=== PATIENT | male | born 1945 | race Caucasian/White ===

== ENCOUNTER 2022-11-22 16:55 | Inpatient (IN) ==
--- NOTE | 2022-11-22 17:30 | XRay Report ---
SINGLE VIEW CHEST CLINICAL HISTORY: Dyspnea FINDINGS: An AP, portable, upright chest radiograph is obtained. No prior studies are available for c omparison at the time of dictation. The examination is degraded by portable technique and patient rot ation. The heart is enlarged noting atherosclerotic calcification of the thoracic aorta. There is pu lmonary vascular congestion. Emphysematous change is suspected. There are moderate left and small ri ght pleural effusions with dependent consolidation. Patchy airspace consolidation is also seen in the left midlung. No pneumothorax is seen. The skeletal structures are osteopenic. There are chronic/hea led right-sided rib fractures. 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 IMPRESSION: 1. Cardiomegaly with evidence of congestive failure. 2. Suspect emphysema. 3. Small right and moderate left pleural effusions with dependent consolidation. 4. More focal airspace consolidation is seen in the left midlung. This could represent asymmetric pul monary edema or pneumonia. Radiographic follow-up to resolution is recommended to exclude the possibi lity of underlying mass lesion. ACT 112: Negative or not required by law. Electronically signed by: William Ledesma M.D. 11/22/2022 5:29 PM
[2022-11-22 17:59] LABS: Basophils # (auto) 0.03 K/uL (0.00-0.20); Basophils % (auto) 0.3 %; Eosinophils # (auto) 0.07 K/uL (0.00-0.50); Eosinophils % (auto) 0.8 %; Hematocrit (blood only) 31.7 % (42.0-52.0); Hemoglobin 10.7 g/dl (14.0-18.0); Immature Granulocytes # (auto) 0.02 K/uL (0.01-0.20); Immature Granulocytes % (auto) 0.2 %; Lymphocytes # (auto) 0.62 K/uL (1.20-3.40); Lymphocytes % (auto) 7.2 %; Mean Corpuscular Hemoglobin 32.4 pg (25.0-34.0); Mean Corpuscular Hgb Conc 33.8 g/dL (32.0-36.0); Mean Corpuscular Volume 96.1 fL (80.0-100.0); Monocytes # (auto) 0.69 K/uL (0.11-0.59); Neutrophils # (auto) 7.18 K/uL (1.40-6.50); Neutrophils % (auto) 83.5 %; Platelet Count 355 K/uL (130-400); RDW Coefficient of Variation 13.5 % (11.5-14.5); RDW Standard Deviation 48.2 fL (36.4-46.3); White Blood Count 8.61 K/ul (4.8-10.8)
[2022-11-22 18:24] LABS: Alanine Aminotransferase 34 U/L (7-52); Albumin Globulin Ratio 1.1 (0.9-2); Albumin Level 3.5 gm/dl (3.4-5.0); Alkaline Phosphatase 153 U/L (34-104); Anion Gap 5 (3-11); Aspartate Aminotransferase 41 U/L (13-39); BUN Creatinine Ratio 22.2 (10-20); Bilirubin,Total 0.5 mg/dl (0.2-1.0); Blood Urea Nitrogen 14 mg/dl (6-23); Calcium 9.7 mg/dl (8.6-10.3); Carbon Dioxide 33 mmol/L (21-32); Chloride 90 mmol/L (98-107); Creatinine Clr Calc Pharmacy 89.9 ml/min; Est GFR (African American) 109.4 ml/min; Est GFR (Non-African American) 94.4 ml/min; Globulin 3.1 gm/dl (2.5-4.0); Glucose 106 mg/dl (70-99(Fasting)); Magnesium 1.6 mg/dl (1.7-2.4); Potassium 4.6 mmol/L (3.5-5.1); Sodium 128 mmol/L (136-145); Total Protein 6.6 gm/dl (6.0-8.3)
[2022-11-22 18:29] LABS: Troponin I High Sensitivity 25.8 pg/ml (0-20)
--- NOTE | 2022-11-22 18:41 | Emergency Department Note ---
Impression & Plan SOB (shortness of breath), Cough, Elevated troponin, Acute hyponatremia, Multifocal pneumonia ED Provider Note INFORMANT: Patient and family ED PROVIDER(S): Edi Torres MD CHIEF COMPLAINT: Shortness of breath and cough PLAN: Disposition: Admitted Condition: Good Outpatient prescription management: none Referral: None MEDICAL DECISION MAKING: Patient presented because of cough and shortness of breath. ECG as an outpatient was concerning per primary. A work-up was initiated. His CBC was unremarkable. Chemistry panel cardiac testing did reveal an elevated BNP as well as troponin. Bio fire testing was negative. The patient had multifocal pneumonia noted on CT as well as chest x-ray. No pulmonary embolus. Loculated effusion noted as well as calcified myocardium. Patient was treated with blood cultures as well as vancomycin and cefepime. He was gently hydrated. He was also found to have hyponatremia on his chemistry panel. Further management in the hospital will be necessary. Consultation was made with the [facility] service. Case discussed and diagnostics were reviewed. Patient was evaluated in the ER and admitted for further management Discussed with residential care facility manager After review of the information above and other included data, I feel the patient requires admission. Triage Nursing notes reviewed and agree them. Vital Signs: reviewed and remarkable for borderline tachycardia Prior /Outside records reviewed: none Differential diagnosis: Reactive airway disease, pneumonia, pneumothorax, COPD, CHF, infections, cardiac ischemia, pulmonary embolism, musculoskeletal, gastrointestinal, as well as other pathologies. Diagnostics, as interpreted by me: ECG: Twelve-lead ECG reveals a normal sinus rhythm at [address] elevation but there is mild inferolateral ST depression.. Septal Q wave. Cardiac Monitoring: Cardiac monitoring ordered by me: The patient was placed on continuous cardiac monitoring and observed. It revealed a normal sinus rhythm at 100 beats per minute without ectopy or evidence of dysrhythmia. Medical decision rules: none Imaging studies: Chest x-ray and CT scan as above. Multifocal pneumonia. Pleural effusions. HPI: The patient is a 77year old male who presents to the Emergency Room with complaints of shortness of breath and cough. This started several weeks ago and is fluctuating. The patient also notes the following associated symptoms, fatigue and poor appetite. The patient has been prescribed doxycycline for relieving factors. Current pain is rated as 0/10. Patient notes no improvement with the doxycycline. Several weeks ago he did have a prednisone prescription and noted some improvement with that. Patient also notes a 40 pound weight loss. Pt denies LOC, headache, fevers, chills, diaphoresis, visual changes, neck pain, chest pain, nausea, vomiting, abdominal pain, back pain, melena, hematochezia, urinary symptoms, numbness, lymphadenopathy, rash, or other complaints. PAST MEDICAL HISTORY: See Below, high cholesterol PAST SURGICAL HISTORY: See Below, SOCIAL HISTORY: See Below, HOME MEDICATIONS: See Below ALLERGIES: See Below VITALS: See Below PHYSICAL EXAMINATION: GENERAL: Awake, alert, mildly cachectic-appearing, in no distress HENT: Normocephalic, atraumatic. Oropharynx unremarkable. EYES: Normal conjunctiva. Sclera non-icteric. NECK: Inspection normal. Non-tender. Supple. No nuchal rigidity. FROM. No masses. RESPIRATORY: Scattered rhonchi bilaterally. No wheezes. No rales. Normal respiratory effort. CARDIAC: Normal rate. Normal rhythm. No murmurs. No rubs. Extremities warm and well perfused. Pulses equal. No JVD. GI: Soft, non-distended. No tenderness to palpation. No rebound or guarding. No masses. MUSCULOSKELETAL: Atraumatic. Chest examination reveals no tenderness. The back is symmetrical on inspection without obvious abnormality. There is no CVA tender ness to palpation. No joint edema. LOWER EXTREMITIES: Calves are equal size bilaterally and non-tender. No edema. No discoloration. NEURO: Normal sensorium. No sensory or motor deficits noted. SKIN: No rash or jaundice noted. Past Med/Surg History Social History Smoking Status: Former smoker Tobacco Type: Cigarettes Preferred Language: Dutch Feels Safe at Home: Yes Allergies Allergies Allergy/AdvReac Type Severity Reaction Status Date / Time No Known Allergies Allergy Verified 11/22/22 18:33 Home Meds Home Medications Medication Instructions Recorded Confirmed albuterol sulfate 90 mcg/actuation 2 puff inhalation Q4H PRN 11/22/22 11/22/22 aerosol inhaler COUGH/SHORTNESS OF BREATH/WHEEZING cholecalciferol (vitamin D3) 25 25 mcg PO DAILY 11/22/22 11/22/22 mcg (1,000 unit) capsule (Vitamin D3) clobetasol 0.05 % topical cream 1 applic topical BID PRN Itching 11/22/22 11/22/22 doxycycline hyclate 100 mg capsule 100 mg PO BID 11/22/22 11/22/22 fluticasone propionate 50 1 spray intranasal DAILY 11/22/22 11/22/22 mcg/actuation nasal spray,suspension furosemide 20 mg tablet (Lasix) 20 mg PO QAM 11/22/22 11/22/22 guaifenesin 600 mg tablet, 600 mg PO Q12H 11/22/22 11/22/22 extended release 12 hr ipratropium 0.5 mg-albuterol 3 mg 3 ml inhalation Q4H PRN Wheezing 11/22/22 11/22/22 (2.5 mg base)/3 mL nebulization soln latanoprost 0.005 % eye drops 1 drp OPB PM 11/22/22 11/22/22 levobunolol 0.5 % eye drops 1 drp OPB BID 11/22/22 11/22/22 [id number] 1 tab PO DAILY 11/22/22 11/22/22 tablet (Multivitamin 50 Plus tablet) ondansetron HCl 4 mg tablet 4 mg PO Q8H PRN NAUSEA/VOMITING 11/22/22 11/22/22 psyllium husk 0.4 gram capsule 0.4 g PO DAILY 11/22/22 11/22/22 (Fiber (psyllium husk)) sertraline 50 mg tablet 50 mg PO DAILY 11/22/22 11/22/22 sildenafil 100 mg tablet 100 mg PO DAILY PRN Sexual Activity 11/22/22 11/22/22 simvastatin 40 mg tablet 40 mg PO HS 11/22/22 11/22/22 triamcinolone acetonide 0.1 % 1 applic topical DAILY PRN Itching 11/22/22 11/22/22 topical cream Results & Data (ED) Vital Signs Vital Signs - 24 hr 11/22/22 16:59 11/22/22 17:14 11/22/22 18:29 Temperature 36.6 C Temperature Source Temporal Artery Scan Pulse Rate 92 H 92 H Pulse Rate [Right Finger] 96 H Pulse Rhythm [Right Finger] Regular Pulse Strength [Right Finger] Normal Respiratory Rate 22 18 Respiratory Effort / Characteristics Non-Labored Non-Labored Respiratory Depth Normal Normal Respiratory Pattern Regular Blood Pressure 115/66 Blood Pressure [Right Arm] 124/72 Blood Pressure Mean 82 Blood Pressure Mean [Right Arm] 89 Blood Pressure Position [Right Arm] Sitting Pulse Oximetry 94 92 Oxygen Delivery Method Room Air Room Air Sepsis Recent Fever Within 48 Hours No Sepsis New/Unexplained Change in Mental Status N/A Sepsis Action Taken by Nursing No Action Required 11/22/22 19:52 11/22/22 21:25 11/22/22 21:02 Temperature Temperature Source Pulse Rate 98 H Pulse Rate [Right Finger] 97 H 105 H Pulse Rhythm [Right Finger] Regular Regular Pulse Strength [Right Finger] Normal Normal Respiratory Rate 18 18 Respiratory Effort / Characteristics Non-Labored Spontaneous Non-Labored Spontaneous Respiratory Depth Normal Normal Respiratory Pattern Regular Regular Blood Pressure Blood Pressure [Right Arm] 127/76 109/67 Blood Pressure Mean Blood Pressure Mean [Right Arm] 93 81 Blood Pressure Position [Right Arm] Pulse Oximetry 92 92 Oxygen Delivery Method Room Air Room Air Sepsis Recent Fever Within 48 Hours Sepsis New/Unexplained Change in Mental Status Sepsis Action Taken by Nursing Laboratory Data 11/22/22 17:34 11/22/22 17:34 Lab Results 11/22/22 11/22/22 11/22/22 Range/Units 17:34 17:34 17:34 WBC 8.61 (4.8-10.8) K/ul RBC 3.30 L (4.70-6.10) M/uL Hgb 10.7 L (14.0-18.0) g/dl Hct 31.7 L (42.0-52.0) % MCV 96.1 (80.0-100.0) fL MCH 32.4 (25.0-34.0) pg MCHC 33.8 (32.0-36.0) g/dL RDW Std Deviation 48.2 H (36.4-46.3) fL RDW Coeff of Lizeth 13.5 (11.5-14.5) % Plt Count 355 (130-400) K/uL MPV 10.0 (9.4-12.4) fL Immature Gran % (Auto) 0.2 % Neut % (Auto) 83.5 % Lymph % (Auto) 7.2 % Yell % (Auto) 8.0 % Eos % (Auto) 0.8 % Baso % (Auto) 0.3 % Neut # (Auto) 7.18 H (1.40-6.50) K/uL Lymph # (Auto) 0.62 L (1.20-3.40) K/uL Yell # (Auto) 0.69 H (0.11-0.59) K/uL Eos # (Auto) 0.07 (0.00-0.50) K/uL Baso # (Auto) 0.03 (0.00-0.20) K/uL Immature Gran # (Auto) 0.02 (0.01-0.20) K/uL PT 12.4 H (9.0-12.0) Seconds INR 1.1 (0.9-1.1) Sodium 128 L (136-145) mmol/L Potassium 4.6 (3.5-5.1) mmol/L Chloride 90 L (98-107) mmol/L Carbon Dioxide 33 H (21-32) mmol/L Anion Gap 5 (3-11) BUN 14 (6-23) mg/dl Creatinine 0.63 (0.6-1.4) mg/dl Est Cr Clr Drug Dosing 89.9 ml/min Est GFR ( Amer) 109.4 ml/min Est GFR (Non-Af Amer) 94.4 ml/min BUN/Creatinine Ratio 22.2 H (10-20) Glucose 106 H (70-99(Fasting)) mg/dl Calcium 9.7 (8.6-10.3) mg/dl Magnesium 1.6 L (1.7-2.4) mg/dl Total Bilirubin 0.5 (0.2-1.0) mg/dl AST 41 H (13-39) U/L ALT 34 (7-52) U/L Alkaline Phosphatase 153 H (34-104) U/L Troponin I High Sens 25.8 H (0-20) pg/ml B-Natriuretic Peptide (0-100) pg/ml Total Protein 6.6 (6.0-8.3) gm/dl Albumin 3.5 (3.4-5.0) gm/dl Globulin 3.1 (2.5-4.0) gm/dl Albumin/Globulin Ratio 1.1 (0.9-2) Urine Color Urine Appearance (Clear) Urine pH (4.5-7.5) Ur Specific [place] (1.000-1.030) Urine Protein (Negative) Urine Glucose (UA) (Negative) Urine Ketones (Negative) Urine Blood (Negative) Urine Nitrite (Negative) Urine Bilirubin (Negative) Urine Urobilinogen (Negative) Ur Leukocyte Esterase (Negative) Urine WBC (Auto) (0-5) /hpf Urine RBC (Auto) (0-4) /hpf U Hyaline Cast (Auto) (0-5) /lpf U Epithel Cells (Auto) (0-5) /lpf Urine Bacteria (Auto) (Negative) Adenovirus (PCR) (NotDetected) B. pertussis DNA (PCR) (NotDetected) B.parapertussis DNA PCR (NotDetected) C. pneumoniae DNA (PCR) (NotDetected) Coronavirus OC43 (PCR) (NotDetected) Coronavirus HKU1 (PCR) (NotDetected) Coronavirus 229E (PCR) (NotDetected) SARS-CoV-2 (PCR) (NotDetected) Coronavirus NL63 (PCR) (NotDetected) Human Metapneumovir PCR (NotDetected) Influenza Type A (PCR) (NotDetected) Influenza Type B (PCR) (NotDetected) M. pneumoniae (PCR) (NotDetected) Parainfluenza 1 (PCR) (NotDetected) Parainfluenza 2 (PCR) (NotDetected) Parainfluenza 3 (PCR) (NotDetected) Parainfluenza 4 (PCR) (NotDetected) RSV (PCR) (NotDetected) Entero/Rhino (PCR) (NotDetected) 11/22/22 11/22/22 11/22/22 Range/Units 17:34 19:41 20:20 WBC (4.8-10.8) K/ul RBC (4.70-6.10) M/uL Hgb (14.0-18.0) g/dl Hct (42.0-52.0) % MCV (80.0-100.0) fL MCH (25.0-34.0) pg MCHC (32.0-36.0) g/dL RDW Std Deviation (36.4-46.3) fL RDW Coeff of Lizeth (11.5-14.5) % Plt Count (130-400) K/uL MPV (9.4-12.4) fL Immature Gran % (Auto) % Neut % (Auto) % Lymph % (Auto) % Yell % (Auto) % Eos % (Auto) % Baso % (Auto) % Neut # (Auto) (1.40-6.50) K/uL Lymph # (Auto) (1.20-3.40) K/uL Yell # (Auto) (0.11-0.59) K/uL Eos # (Auto) (0.00-0.50) K/uL Baso # (Auto) (0.00-0.20) K/uL Immature Gran # (Auto) (0.01-0.20) K/uL PT (9.0-12.0) Seconds INR (0.9-1.1) Sodium (136-145) mmol/L Potassium (3.5-5.1) mmol/L Chloride (98-107) mmol/L Carbon Dioxide (21-32) mmol/L Anion Gap (3-11) BUN (6-23) mg/dl Creatinine (0.6-1.4) mg/dl Est Cr Clr Drug Dosing ml/min Est GFR ( Amer) ml/min Est GFR (Non-Af Amer) ml/min BUN/Creatinine Ratio (10-20) Glucose (70-99(Fasting)) mg/dl Calcium (8.6-10.3) mg/dl Magnesium (1.7-2.4) mg/dl Total Bilirubin (0.2-1.0) mg/dl AST (13-39) U/L ALT (7-52) U/L Alkaline Phosphatase (34-104) U/L Troponin I High Sens 22.5 H (0-20) pg/ml B-Natriuretic Peptide 1239 H (0-100) pg/ml Total Protein (6.0-8.3) gm/dl Albumin (3.4-5.0) gm/dl Globulin (2.5-4.0) gm/dl Albumin/Globulin Ratio (0.9-2) Urine Color Yellow Urine Appearance Clear (Clear) Urine pH 6.5 (4.5-7.5) Ur Specific [place] > 1.045 H (1.000-1.030) Urine Protein Trace H (Negative) Urine Glucose (UA) Negative (Negative) Urine Ketones Negative (Negative) Urine Blood Negative (Negative) Urine Nitrite Negative (Negative) Urine Bilirubin Negative (Negative) Urine Urobilinogen Negative (Negative) Ur Leukocyte Esterase Negative (Negative) Urine WBC (Auto) 1-5 (0-5) /hpf Urine RBC (Auto) 0-4 (0-4) /hpf U Hyaline Cast (Auto) 0 (0-5) /lpf U Epithel Cells (Auto) 0-5 (0-5) /lpf Urine Bacteria (Auto) Negative (Negative) Adenovirus (PCR) (NotDetected) B. pertussis DNA (PCR) (NotDetected) B.parapertussis DNA PCR (NotDetected) C. pneumoniae DNA (PCR) (NotDetected) Coronavirus OC43 (PCR) (NotDetected) Coronavirus HKU1 (PCR) (NotDetected) Coronavirus 229E (PCR) (NotDetected) SARS-CoV-2 (PCR) (NotDetected) Coronavirus NL63 (PCR) (NotDetected) Human Metapneumovir PCR (NotDetected) Influenza Type A (PCR) (NotDetected) Influenza Type B (PCR) (NotDetected) M. pneumoniae (PCR) (NotDetected) Parainfluenza 1 (PCR) (NotDetected) Parainfluenza 2 (PCR) (NotDetected) Parainfluenza 3 (PCR) (NotDetected) Parainfluenza 4 (PCR) (NotDetected) RSV (PCR) (NotDetected) Entero/Rhino (PCR) (NotDetected) 11/22/22 11/22/22 Range/Units 21:38 Unknown WBC (4.8-10.8) K/ul RBC (4.70-6.10) M/uL Hgb (14.0-18.0) g/dl Hct (42.0-52.0) % MCV (80.0-100.0) fL MCH (25.0-34.0) pg MCHC (32.0-36.0) g/dL RDW Std Deviation (36.4-46.3) fL RDW Coeff of Lizeth (11.5-14.5) % Plt Count (130-400) K/uL MPV (9.4-12.4) fL Immature Gran % (Auto) % Neut % (Auto) % Lymph % (Auto) % Yell % (Auto) % Eos % (Auto) % Baso % (Auto) % Neut # (Auto) (1.40-6.50) K/uL Lymph # (Auto) (1.20-3.40) K/uL Yell # (Auto) (0.11-0.59) K/uL Eos # (Auto) (0.00-0.50) K/uL Baso # (Auto) (0.00-0.20) K/uL Immature Gran # (Auto) (0.01-0.20) K/uL PT (9.0-12.0) Seconds INR (0.9-1.1) Sodium (136-145) mmol/L Potassium (3.5-5.1) mmol/L Chloride (98-107) mmol/L Carbon Dioxide (21-32) mmol/L Anion Gap (3-11) BUN (6-23) mg/dl Creatinine (0.6-1.4) mg/dl Est Cr Clr Drug Dosing ml/min Est GFR ( Amer) ml/min Est GFR (Non-Af Amer) ml/min BUN/Creatinine Ratio (10-20) Glucose (70-99(Fasting)) mg/dl Calcium (8.6-10.3) mg/dl Magnesium (1.7-2.4) mg/dl Total Bilirubin (0.2-1.0) mg/dl AST (13-39) U/L ALT (7-52) U/L Alkaline Phosphatase (34-104) U/L Troponin I High Sens 23.9 H (0-20) pg/ml B-Natriuretic Peptide (0-100) pg/ml Total Protein (6.0-8.3) gm/dl Albumin (3.4-5.0) gm/dl Globulin (2.5-4.0) gm/dl Albumin/Globulin Ratio (0.9-2) Urine Color Urine Appearance (Clear) Urine pH (4.5-7.5) Ur Specific [place] (1.000-1.030) Urine Protein (Negative) Urine Glucose (UA) (Negative) Urine Ketones (Negative) Urine Blood (Negative) Urine Nitrite (Negative) Urine Bilirubin (Negative) Urine Urobilinogen (Negative) Ur Leukocyte Esterase (Negative) Urine WBC (Auto) (0-5) /hpf Urine RBC (Auto) (0-4) /hpf U Hyaline Cast (Auto) (0-5) /lpf U Epithel Cells (Auto) (0-5) /lpf Urine Bacteria (Auto) (Negative) Adenovirus (PCR) Not Detected (NotDetected) B. pertussis DNA (PCR) Not Detected (NotDetected) B.parapertussis DNA PCR Not Detected (NotDetected) C. pneumoniae DNA (PCR) Not Detected (NotDetected) Coronavirus OC43 (PCR) Not Detected (NotDetected) Coronavirus HKU1 (PCR) Not Detected (NotDetected) Coronavirus 229E (PCR) Not Detected (NotDetected) SARS-CoV-2 (PCR) Not Detected (NotDetected) Coronavirus NL63 (PCR) Not Detected (NotDetected) Human Metapneumovir PCR Not Detected (NotDetected) Influenza Type A (PCR) Not Detected (NotDetected) Influenza Type B (PCR) Not Detected (NotDetected) M. pneumoniae (PCR) Not Detected (NotDetected) Parainfluenza 1 (PCR) Not Detected (NotDetected) Parainfluenza 2 (PCR) Not Detected (NotDetected) Parainfluenza 3 (PCR) Not Detected (NotDetected) Parainfluenza 4 (PCR) Not Detected (NotDetected) RSV (PCR) Not Detected (NotDetected) Entero/Rhino (PCR) Not Detected (NotDetected) Administered Medications Sodium Chloride (Nss 1000ml) 1,000 mls @ 80 mls/hr IV .[id number] SATURNINO Stop: 12/22/22 18:44 Last Admin: 11/22/22 19:47 Dose: 80 mls/hr Documented By: HOWARD Discontinued Medications Cefepime HCl (Maxipime) 2,000 mg in 20 mls @ 5 mls/min IV NOW STA; Protocol Stop: 11/22/22 20:01 Last Admin: 11/22/22 20:32 Dose: 5 mls/min Documented By: HOWARD Vancomycin HCl 1,250 mg/ (Sodium Chloride) 525 mls @ 200 mls/hr IV NOW ONE Stop: 11/22/22 22:35 Last Admin: 11/22/22 20:35 Dose: 200 mls/hr Documented By: HWOARD Ioversol (Ioversol 350 Mg 125ml Prefilled Syringe) 117 ml IV ONCE ONE Stop: 11/22/22 18:57 Last Admin: 11/22/22 18:57 Dose: 117 ml Documented By: SALLY Imaging Data Radiologist's Impression: Chest X-Ray 11/22/22 17:11 SINGLE VIEW CHEST CLINICAL HISTORY: Dyspnea FINDINGS: An AP, portable, upright chest radiograph is obtained. No prior studies are available for comparison at the time of dictation. The examination is degraded by portable technique and patient rotation. The heart is enlarged noting atherosclerotic calcification of the thoracic aorta. There is pulmonary vascular congestion. Emphysematous change is suspected. There are moderate left and small right pleural effusions with dependent consolidation. Patchy airspace consolidation is also seen in the left midlung. No pneumothorax is seen. The skeletal structures are osteopenic. There are chronic/healed right-sided rib fractures. 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 IMPRESSION: 1. Cardiomegaly with evidence of congestive failure. 2. Suspect emphysema. 3. Small right and moderate left pleural effusions with dependent consolidation. 4. More focal airspace consolidation is seen in the left midlung. This could represent asymmetric pulmonary edema or pneumonia. Radiographic follow-up to resolution is recommended to exclude the possibility of underlying mass lesion. ACT 112: Negative or not required by law. Electronically signed by: William Ledesma M.D. 11/22/2022 5:29 PM Abdomen/Pelvis CT 11/22/22 17:21 Exam(s): CT ABDOMEN + PELVIS With Contrast IV Amt: 117ml optiray 350 EXAM: CT Abdomen and Pelvis With Intravenous Contrast CLINICAL HISTORY: Reason for exam: 40 wt loss, SOB, effusions, decreased appetite. TECHNIQUE: Axial computed tomography images of the abdomen and pelvis with intravenous contrast. CTDI is 37.01 mGy and DLP is 1030.98 mGy-cm. Automated exposure control was utilized for the study. A dose lowering technique was utilized adhering to the principles of ALARA. CONTRAST: Patient received 117ml optiray 350 of IV contrast COMPARISON: No relevant prior studies available. FINDINGS: Chest findings are reported separately. Liver, gallbladder, spleen, pancreas, and adrenal glands are unremarkable. Kidneys enhance symmetrically, without hydronephrosis or significant perinephric stranding. There is extensive aortoiliac and mesenteric arterial atherosclerosis. There is no aortic aneurysm. 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 There is no adenopathy. There is no free air or significant ascites. Trace perisplenic ascites is noted. There is no bowel obstruction or inflammatory change. Appendix is not visualized with certainty. Urinary bladder and prostate are unremarkable. There are age-related degenerative changes of the spine and hips. There are no acute osseous findings. IMPRESSION: 1. 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 Bowel shows no direct evidence of ischemic change. 2. Otherwise, no acute or significant intra-abdominal findings. 3. Please refer to CT chest of the same date, reported separately. Electronically signed by: Jero Leong M.D. 11/22/22 19:20 PM Chest CTA 11/22/22 17:21 Exam(s): CTA CHEST IV Amt: 117ml optiray 350 EXAM: CT Angiography Chest With Intravenous Contrast CLINICAL HISTORY: Reason for exam: SOB, pleural effusion, ? mass, PE. TECHNIQUE: Axial computed tomographic angiography images of the chest with intravenous contrast. CTDI is 37.01 mGy and DLP is 1030.98 mGy-cm. Automated exposure control was utilized for the study. A dose lowering technique was utilized adhering to the principles of ALARA. MIP reconstructed images were created and reviewed. COMPARISON: No relevant prior studies available. FINDINGS: Thyroid gland is unremarkable. There are mildly enlarged multicompartment mediastinal lymph nodes. No hilar or axillary lymphadenopathy is visualized. Thoracic aorta is calcified but normal in caliber. There is no dissection. There is adequate pulmonary artery opacification. Main pulmonary artery is normal in caliber. There is no evidence of acute pulmonary embolism. There is a moderate loculated left pleural effusion. Extensive round atelectasis is present in the lingula and right lower lobe. There is a small loculated right pleural effusion with round atelectasis in the right lower lobe. Additionally, there are patchy consolidative opacities throughout the lungs, located in the bilateral upper lobes, bilateral lower lobes, and right middle lobe. Some consolidations are subpleural in location, while others are peribronchovascular. There is a background of centrilobular emphysema. There is no pneumothorax. Heart size is normal. Coronary arteries are calcified. There is no significant RV strain. Extensive myocardial calcifications are present within the left ventricle. There is no acute fracture or dislocation. IMPRESSION: 1. No evidence of acute pulmonary embolism. 2. Widespread and patchy bilateral subpleural and peribronchovascular consolidative opacities concerning for multifocal pneumonia. Imaging follow-up after treatment completion recommended to exclude underlying malignancy. 3. Loculated pleural effusions, moderate on the left and mild on the right. Multifocal regions of round atelectasis bilaterally. 4. Centrilobular emphysema. 5. Mild mediastinal adenopathy, possibly reactive. 6. Extensive calcifications throughout the left ventricular myocardium, nonspecific, considerations include post-infarction changes and myocarditis. Clinical correlation is recommended. Consider further characterization with echocardiography. Electronically signed by: Jero Leong M.D. 11/22/22 19:15 PM Discharge Plan Visit Data Chief Complaint: Cardiac Assessment Stated Complaint: REF BY ED Provider: Edi Torres Discharge Problem: SOB (shortness of breath), Cough, Elevated troponin, Acute hyponatremia, Multifocal pneumonia Forms Stand Alone Forms: [facility] Prescriptions Prescriptions: No Action levobunolol [Betagan] 0.5 % Drops 1 drp OPB BID latanoprost 0.005 % Drops 1 drp OPB PM doxycycline hyclate 100 mg Capsule 100 mg PO BID Rx Instructions: STARTED 11/18/22 FOR 7 DAYS. ipratropium-albuterol [DuoNeb] 0.5 mg-3 mg(2.5 mg base)/3 mL Solution For Nebulization 3 ml INHALATION Q4H PRN (Reason: Wheezing) ondansetron HCl [Zofran] 4 mg Tablet 4 mg PO Q8H PRN (Reason: NAUSEA/VOMITING) clobetasol 0.05 % Cream 1 applic TOPICAL BID PRN (Reason: Itching) sildenafil 100 mg Tablet 100 mg PO DAILY PRN (Reason: Sexual Activity) Rx Instructions: administer 30 minutes to 4 hours before activity triamcinolone acetonide 0.1 % Cream 1 applic TOPICAL DAILY PRN (Reason: Itching) simvastatin 40 mg Tablet 40 mg PO HS furosemide [Lasix] 20 mg Tablet 20 mg PO QAM albuterol sulfate 90 mcg/actuation Hfa Aerosol Inhaler 2 puff INHALATION Q4H PRN (Reason: COUGH/SHORTNESS OF BREATH/WHEEZING) fluticasone propionate [Flonase] 50 mcg/actuation [place],Suspension 1 spray INTRANASAL DAILY Rx Instructions: administer into each nostril sertraline 50 mg Tablet 50 mg PO DAILY cholecalciferol (vitamin D3) [Vitamin D3] 25 mcg (1,000 unit) Capsule 25 mcg PO DAILY Multivitamin 50 Plus Tablet 1 tab PO DAILY guaifenesin 600 mg Tablet Extended Release 12hr 600 mg PO Q12H psyllium husk [Fiber (psyllium husk)] 0.4 gram Capsule 0.4 g PO DAILY Referrals Referrals: Emiliana Bernal MD [Primary Care Provider] -
[2022-11-22 18:42] LABS: INR 1.1 (0.9-1.1); Prothrombin Time 12.4 Seconds (9.0-12.0)
[2022-11-22] MEDS ORDERED: SODIUM CHLORIDE 0.9% 1,000 ML IV SCH (18:45)
[2022-11-22] MEDS ORDERED: IOVERSOL 350 MG 125mL Prefilled Syringe IV ONE (18:56)
--- NOTE | 2022-11-22 19:17 | CT Scan Report ---
Exam(s): CTA CHEST IV Amt: 117ml optiray 350 EXAM: CT Angiography Chest With Intravenous Contrast CLINICAL HISTORY: Reason for exam: SOB, pleural effusion, ? mass, PE. TECHNIQUE: Axial computed tomographic angiography images of the chest with intravenous contrast. CTDI is 37.01 mGy and DLP is 1030.98 mGy-cm. Automated exposure control was utilized for the study. A dose lowering technique was utilized adhering to the principles of ALARA. MIP reconstructed images were created and reviewed. COMPARISON: No relevant prior studies available. FINDINGS: Thyroid gland is unremarkable. There are mildly enlarged multicompartment mediastinal lymph nodes. No hilar or axillary lymphadenopathy is visualized. Thoracic aorta is calcified but normal in caliber. There is no dissection. There is adequate pulmonary artery opacification. Main pulmonary artery is normal in caliber. There is no evidence of acute pulmonary embolism. There is a moderate loculated left pleural effusion. Extensive round atelectasis is present in the lingula and right lower lobe. There is a small loculated right pleural effusion with round atelectasis in the right lower lobe. Additionally, there are patchy consolidative opacities throughout the lungs, located in the bilateral upper lobes, bilateral lower lobes, and right middle lobe. Some consolidations are subpleural in location, while others are peribronchovascular. There is a background of centrilobular emphysema. There is no pneumothorax. Heart size is normal. Coronary arteries are calcified. There is no significant RV strain. Extensive myocardial calcifications are present within the left ventricle. There is no acute fracture or dislocation. IMPRESSION: 1. No evidence of acute pulmonary embolism. 2. Widespread and patchy bilateral subpleural and peribronchovascular consolidative opacities concerning for multifocal pneumonia. Imaging follow-up after treatment completion recommended to exclude underlying malignancy. 3. Loculated pleural effusions, moderate on the left and mild on the right. Multifocal regions of round atelectasis bilaterally. 4. Centrilobular emphysema. 5. Mild mediastinal adenopathy, possibly reactive. 6. Extensive calcifications throughout the left ventricular myocardium, nonspecific, considerations include post-infarction changes and myocarditis. Clinical correlation is recommended. Consider further characterization with echocardiography. Electronically signed by: Jero Leong M.D. 11/22/22 19:15 PM
--- NOTE | 2022-11-22 19:21 | CT Scan Report ---
Exam(s): CT ABDOMEN + PELVIS With Contrast IV Amt: 117ml optiray 350 EXAM: CT Abdomen and Pelvis With Intravenous Contrast CLINICAL HISTORY: Reason for exam: 40 wt loss, SOB, effusions, decreased appetite. TECHNIQUE: Axial computed tomography images of the abdomen and pelvis with intravenous contrast. CTDI is 37.01 mGy and DLP is 1030.98 mGy-cm. Automated exposure control was utilized for the study. A dose lowering technique was utilized adhering to the principles of ALARA. CONTRAST: Patient received 117ml optiray 350 of IV contrast COMPARISON: No relevant prior studies available. FINDINGS: Chest findings are reported separately. Liver, gallbladder, spleen, pancreas, and adrenal glands are unremarkable. Kidneys enhance symmetrically, without hydronephrosis or significant perinephric stranding. There is extensive aortoiliac and mesenteric arterial atherosclerosis. There is no aortic aneurysm. 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 There is no adenopathy. There is no free air or significant ascites. Trace perisplenic ascites is noted. There is no bowel obstruction or inflammatory change. Appendix is not visualized with certainty. Urinary bladder and prostate are unremarkable. There are age-related degenerative changes of the spine and hips. There are no acute osseous findings. IMPRESSION: 1. 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 Bowel shows no direct evidence of ischemic change. 2. Otherwise, no acute or significant intra-abdominal findings. 3. Please refer to CT chest of the same date, reported separately. Electronically signed by: Jero Leong M.D. 11/22/22 19:20 PM
[2022-11-22] MEDS ORDERED: VANCOMYCIN HCL 1,250 MG in SODIUM CHLORIDE 0.9% 500 ML IV ONE (19:58)
[2022-11-22] MEDS ORDERED: CEFEPIME 2,000 MG/20 ML VIAL IV STA (19:58)
[2022-11-22] MEDS ORDERED: VANCOMYCIN CONSULT ACTIVE PRN (19:58)
[2022-11-22 20:55] LABS: Appearance Urine Clear (Clear); Bacteria Urine Automated Negative (Negative); Bilirubin Urine Negative (Negative); Blood Urine Negative (Negative); Cast Urine Automated 0 /lpf (0-5); Color Urine Yellow; Epithelial Cell Urine Auto 0-5 /lpf (0-5); Glucose Urine UA Negative (Negative); Ketones Urine Negative (Negative); Leukocyte Esterase Urine Negative (Negative); Nitrite Urine Negative (Negative); Protein Urine Trace (Negative); RBC Urine Automated 0-4 /hpf (0-4); Specific Gravity Urine > 1.045 (1.000-1.030); Urobilinogen Urine Negative (Negative); pH Urine 6.5 (4.5-7.5)
--- NOTE | 2022-11-22 21:17 | History & Physical Report ---
Date of Service November 22, 2022 Assessment & Plan (1) Multifocal pneumonia: Plan: 77-year-old male with past medical significant for hyperlipidemia, COPD, pleural effusion, dyspnea on exertion, recurrent pneumonia, chronic diastolic CHF, primary open-angle glaucoma both eyes, presents with fevers going on for last week with shortness of breath on exertion, weakness, fatigue and cough bringing a slight of whitish phlegm .Was prescribed doxycycline as outpatient took for last 3 days but not improving so came to the ER. Multifocal pneumonia Dyspnea on exertion Says fourth pneumonia in the last 6 months History of pleural effusions. Etiology unclear as per pulmonary plan for bronchoscopy if pleural effusions persist Had 3-day course of doxycycline but not improving ER start cefepime and and Vanco. We will continue with Zosyn and Vanco Pulmonary consult in a.m. for further recommendations History of COPD Continue home inhalers and nebs as needed We will place on nebs ATC for now Weakness Fatigue Weight loss Recurrent pneumonias Need further work-up Dyspnea on exertion Mild elevation of troponin Elevated BNP We will follow serial cardiac enzymes and echocardiogram Consult cardiology in a.m. for further recommendations Chronic diastolic CHF Continue his home Lasix for now Hyperlipidemia on statin DVT prophylaxis Lovenox Disposition med/telemetry Full code History of Present Illness Chief Complaint: Fevers, weakness and shortness of breath Primary Care Provider: Emiliana Bernal MD 77-year-old male with past medical significant for hyperlipidemia, COPD, pleural effusion, dyspnea on exertion, recurrent pneumonia, chronic diastolic CHF, primary open-angle glaucoma both eyes, presents with fevers going on for last week with shortness of breath on exertion, weakness, fatigueand cough bringing a slight of whitish phlegm.Was prescribed doxycycline as outpatient took for las t 3 days but not improving so came to the ER. Patient states this is fourth episode in last 6 months. Lost about 40 pounds weight in last 1 year. Had pleural effusions and followed with [facility], etiology unclear as per pulmonary and plan for bronchoscopy if pleural effusions persist. Patient states today had temperature 100.7 degrees. Appetite is down. Denies any headache, no neck pain, no chest pain, no back pain, no abdominal pain and no pain in limbs. Could not ambulate far because of fatigue, weakness and shortness of breath. Denies any blurred visions. Has some runny nose. No sore throat. No difficulty swallowing. No painful swallowing. No nausea. Normal bowel and bladder movements. Currently resting comfortably and hemodynamically stable Past medical as mentioned above Past surgical history colonoscopy, tonsillectomy, vasectomy Social history quit smoking 2012. Smoked 1.5 packs a day for 40 years. Alcohol 1 beer a week. No drug use Family history Sister has cancer Sister has diabetes Allergies Allergy/AdvReac Type Severity Reaction Status Date / Time No Known Allergies Allergy Verified 11/22/22 18:33 Home Medications Medication Instructions Recorded Confirmed Type albuterol sulfate 90 mcg/actuation 2 puff inhalation Q4H PRN 11/22/22 11/22/22 History aerosol inhaler COUGH/SHORTNESS OF BREATH/WHEEZING cholecalciferol (vitamin D3) 25 25 mcg PO DAILY 11/22/22 11/22/22 History mcg (1,000 unit) capsule (Vitamin D3) clobetasol 0.05 % topical cream 1 applic topical BID PRN Itching 11/22/22 11/22/22 History doxycycline hyclate 100 mg capsule 100 mg PO BID 11/22/22 11/22/22 History fluticasone propionate 50 1 spray intranasal DAILY 11/22/22 11/22/22 History mcg/actuation nasal spray,suspension furosemide 20 mg tablet (Lasix) 20 mg PO QAM 11/22/22 11/22/22 History guaifenesin 600 mg tablet, 600 mg PO Q12H 11/22/22 11/22/22 History extended release 12 hr ipratropium 0.5 mg-albuterol 3 mg 3 ml inhalation Q4H PRN Wheezing 11/22/22 11/22/22 History (2.5 mg base)/3 mL nebulization soln latanoprost 0.005 % eye drops 1 drp OPB PM 11/22/22 11/22/22 History levobunolol 0.5 % eye drops 1 drp OPB BID 11/22/22 11/22/22 History xkyovzawuwwf-trlbxvia-apzfis 1 tab PO DAILY 11/22/22 11/22/22 History tablet (Multivitamin 50 Plus tablet) ondansetron HCl 4 mg tablet 4 mg PO Q8H PRN NAUSEA/VOMITING 11/22/22 11/22/22 History psyllium husk 0.4 gram capsule 0.4 g PO DAILY 11/22/22 11/22/22 History (Fiber (psyllium husk)) sertraline 50 mg tablet 50 mg PO DAILY 11/22/22 11/22/22 History sildenafil 100 mg tablet 100 mg PO DAILY PRN Sexual Activity 11/22/22 11/22/22 History simvastatin 40 mg tablet 40 mg PO HS 11/22/22 11/22/22 History triamcinolone acetonide 0.1 % 1 applic topical DAILY PRN Itching 11/22/22 History topical cream Past Med/Surg History Social History Smoking Status: Former smoker Tobacco Type: Cigarettes Hx Alcohol Use: Yes Alcohol type: beer Hx Substance Use: No Preferred Language: Gambian Communication Ability: Effective Spring Maker Required: No Current Living Situation: Spouse Feels Safe at Home: Yes Assistive Devices: Denture - Upper, Denture - Lower, Glasses and Hearing Aid - Bilateral Review of Systems Review of Systems: All systems reviewed & are unremarkable except as noted in HPI & below Physical Exam Physical Exam: General- Not in distress Head- atraumatic Eyes- PERRL ENT- oropharynx clear Neck- supple, no JVD, no adenopathy, carotids +2/2, no bruits appreciated Lungs- clear to auscultation no wheezing, mild bibasilar crackles present Heart- regular rate and rhythm; no murmur, no gallop. Abdomen- normal bowel sounds, soft, nontender, no distension. Extremities- no pretibial edema, no erythema Neuro- alert, oriented x 3; PERRL, no facial palsy; no dysarthria;non focal. Skin- warm & dry Results & Data Results & Data Vital Signs (Past 12 Hours) Vital Signs Temp Pulse Pulse Resp BP BP Pulse Ox 11/22/22 19:52 97 H 18 127/76 92 11/22/22 18:29 96 H 18 124/72 92 11/22/22 17:14 92 H 11/22/22 16:59 36.6 C 92 H 22 115/66 94 O2 Del Method 11/22/22 19:52 Room Air 11/22/22 18:29 Room Air 11/22/22 17:14 11/22/22 16:59 Room Air Diagnostic Findings Laboratory Results WBC 8.61 K/ul (4.8-10.8) 11/22/22 17:34 RBC 3.30 M/uL (4.70-6.10) L 11/22/22 17:34 Hgb 10.7 g/dl (14.0-18.0) L 11/22/22 17:34 Hct 31.7 % (42.0-52.0) L 11/22/22 17:34 MCV 96.1 fL (80.0-100.0) 11/22/22 17:34 MCH 32.4 pg (25.0-34.0) 11/22/22 17:34 MCHC 33.8 g/dL (32.0-36.0) 11/22/22 17:34 RDW Std Deviation 48.2 fL (36.4-46.3) H 11/22/22 17:34 RDW Coeff of Lizeth 13.5 % (11.5-14.5) 11/22/22 17:34 Plt Count 355 K/uL (130-400) 11/22/22 17:34 MPV 10.0 fL (9.4-12.4) 11/22/22 17:34 Immature Gran % (Auto) 0.2 % 11/22/22 17:34 Neut % (Auto) 83.5 % 11/22/22 17:34 Lymph % (Auto) 7.2 % 11/22/22 17:34 Esmeralda % (Auto) 8.0 % 11/22/22 17:34 Eos % (Auto) 0.8 % 11/22/22 17:34 Baso % (Auto) 0.3 % 11/22/22 17:34 Neut # (Auto) 7.18 K/uL (1.40-6.50) H 11/22/22 17:34 Lymph # (Auto) 0.62 K/uL (1.20-3.40) L 11/22/22 17:34 Esmeralda # (Auto) 0.69 K/uL (0.11-0.59) H 11/22/22 17:34 Eos # (Auto) 0.07 K/uL (0.00-0.50) 11/22/22 17:34 Baso # (Auto) 0.03 K/uL (0.00-0.20) 11/22/22 17:34 Immature Gran # (Auto) 0.02 K/uL (0.01-0.20) 11/22/22 17:34 PT 12.4 Seconds (9.0-12.0) H 11/22/22 17:34 INR 1.1 (0.9-1.1) 11/22/22 17:34 Sodium 128 mmol/L (136-145) L 11/22/22 17:34 Potassium 4.6 mmol/L (3.5-5.1) 11/22/22 17:34 Chloride 90 mmol/L (98-107) L 11/22/22 17:34 Carbon Dioxide 33 mmol/L (21-32) H 11/22/22 17:34 Anion Gap 5 (3-11) 11/22/22 17:34 BUN 14 mg/dl (6-23) 11/22/22 17:34 Creatinine 0.63 mg/dl (0.6-1.4) 11/22/22 17:34 Est Cr Clr Drug Dosing 89.9 ml/min 11/22/22 17:34 Est GFR ( Amer) 109.4 ml/min 11/22/22 17:34 Est GFR (Non-Af Amer) 94.4 ml/min 11/22/22 17:34 BUN/Creatinine Ratio 22.2 (10-20) H 11/22/22 17:34 Glucose 106 mg/dl (70-99(Fasting)) H 11/22/22 17:34 Calcium 9.7 mg/dl (8.6-10.3) 11/22/22 17:34 Magnesium 1.6 mg/dl (1.7-2.4) L 11/22/22 17:34 Total Bilirubin 0.5 mg/dl (0.2-1.0) 11/22/22 17:34 AST 41 U/L (13-39) H 11/22/22 17:34 ALT 34 U/L (7-52) 11/22/22 17:34 Alkaline Phosphatase 153 U/L (34-104) H 11/22/22 17:34 Troponin I High Sens 22.5 pg/ml (0-20) H 11/22/22 19:41 B-Natriuretic Peptide 1239 pg/ml (0-100) H 11/22/22 17:34 Total Protein 6.6 gm/dl (6.0-8.3) 11/22/22 17:34 Albumin 3.5 gm/dl (3.4-5.0) 11/22/22 17:34 Globulin 3.1 gm/dl (2.5-4.0) 11/22/22 17:34 Albumin/Globulin Ratio 1.1 (0.9-2) 11/22/22 17:34 Urine Color Yellow 11/22/22 20:20 Urine Appearance Clear (Clear) 11/22/22 20:20 Urine pH 6.5 (4.5-7.5) 11/22/22 20:20 Ur Specific [place] > 1.045 (1.000-1.030) H 11/22/22 20:20 Urine Protein Trace (Negative) H 11/22/22 20:20 Urine Glucose (UA) Negative (Negative) 11/22/22 20:20 Urine Ketones Negative (Negative) 11/22/22 20:20 Urine Blood Negative (Negative) 11/22/22 20:20 Urine Nitrite Negative (Negative) 11/22/22 20:20 Urine Bilirubin Negative (Negative) 11/22/22 20:20 Urine Urobilinogen Negative (Negative) 11/22/22 20:20 Ur Leukocyte Esterase Negative (Negative) 11/22/22 20:20 Urine WBC (Auto) 1-5 /hpf (0-5) 11/22/22 20:20 Urine RBC (Auto) 0-4 /hpf (0-4) 11/22/22 20:20 U Hyaline Cast (Auto) 0 /lpf (0-5) 11/22/22 20:20 U Epithel Cells (Auto) 0-5 /lpf (0-5) 11/22/22 20:20 Urine Bacteria (Auto) Negative (Negative) 11/22/22 20:20 Impressions Chest X-Ray 11/22/22 17:11 SINGLE VIEW CHEST CLINICAL HISTORY: Dyspnea FINDINGS: An AP, portable, upright chest radiograph is obtained. No prior studies are available for comparison at the time of dictation. The examination is degraded by portable technique and patient rotation. The heart is enlarged noting atherosclerotic calcification of the thoracic aorta. There is pulmonary vascular congestion. Emphysematous change is suspected. There are moderate left and small right pleural effusions with dependent consolidation. Patchy airspace consolidation is also seen in the left midlung. No pneumothorax is seen. The skeletal structures are osteopenic. There are chronic/healed right-sided rib fractures. 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 IMPRESSION: 1. Cardiomegaly with evidence of congestive failure. 2. Suspect emphysema. 3. Small right and moderate left pleural effusions with dependent consolidation. 4. More focal airspace consolidation is seen in the left midlung. This could represent asymmetric pulmonary edema or pneumonia. Radiographic follow-up to resolution is recommended to exclude the possibility of underlying mass lesion. ACT 112: Negative or not required by law. Electronically signed by: William Ledesma M.D. 11/22/2022 5:29 PM Abdomen/Pelvis CT 11/22/22 17:21 Exam(s): CT ABDOMEN + PELVIS With Contrast IV Amt: 117ml optiray 350 EXAM: CT Abdomen and Pelvis With Intravenous Contrast CLINICAL HISTORY: Reason for exam: 40 wt loss, SOB, effusions, decreased appetite. TECHNIQUE: Axial computed tomography images of the abdomen and pelvis with intravenous contrast. CTDI is 37.01 mGy and DLP is 1030.98 mGy-cm. Automated exposure control was utilized for the study. A dose lowering technique was utilized adhering to the principles of ALARA. CONTRAST: Patient received 117ml optiray 350 of IV contrast COMPARISON: No relevant prior studies available. FINDINGS: Chest findings are reported separately. Liver, gallbladder, spleen, pancreas, and adrenal glands are unremarkable. Kidneys enhance symmetrically, without hydronephrosis or significant perinephric stranding. There is extensive aortoiliac and mesenteric arterial atherosclerosis. There is no aortic aneurysm. 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 There is no adenopathy. There is no free air or significant ascites. Trace perisplenic ascites is noted. There is no bowel obstruction or inflammatory change. Appendix is not visualized with certainty. Urinary bladder and prostate are unremarkable. There are age-related degenerative changes of the spine and hips. There are no acute osseous findings. IMPRESSION: 1. 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 Bowel shows no direct evidence of ischemic change. 2. Otherwise, no acute or significant intra-abdominal findings. 3. Please refer to CT chest of the same date, reported separately. Electronically signed by: Jero Leong M.D. 11/22/22 19:20 PM Chest CTA 11/22/22 17:21 Exam(s): CTA CHEST IV Amt: 117ml optiray 350 EXAM: CT Angiography Chest With Intravenous Contrast CLINICAL HISTORY: Reason for exam: SOB, pleural effusion, ? mass, PE. TECHNIQUE: Axial computed tomographic angiography images of the chest with intravenous contrast. CTDI is 37.01 mGy and DLP is 1030.98 mGy-cm. Automated exposure control was utilized for the study. A dose lowering technique was utilized adhering to the principles of ALARA. MIP reconstructed images were created and reviewed. COMPARISON: No relevant prior studies available. FINDINGS: Thyroid gland is unremarkable. There are mildly enlarged multicompartment mediastinal lymph nodes. No hilar or axillary lymphadenopathy is visualized. Thoracic aorta is calcified but normal in caliber. There is no dissection. There is adequate pulmonary artery opacification. Main pulmonary artery is normal in caliber. There is no evidence of acute pulmonary embolism. There is a moderate loculated left pleural effusion. Extensive round atelectasis is present in the lingula and right lower lobe. There is a small loculated right pleural effusion with round atelectasis in the right lower lobe. Additionally, there are patchy consolidative opacities throughout the lungs, located in the bilateral upper lobes, bilateral lower lobes, and right middle lobe. Some consolidations are subpleural in location, while others are peribronchovascular. There is a background of centrilobular emphysema. There is no pneumothorax. Heart size is normal. Coronary arteries are calcified. There is no significant RV strain. Extensive myocardial calcifications are present within the left ventricle. There is no acute fracture or dislocation. IMPRESSION: 1. No evidence of acute pulmonary embolism. 2. Widespread and patchy bilateral subpleural and peribronchovascular consolidative opacities concerning for multifocal pneumonia. Imaging follow-up after treatment completion recommended to exclude underlying malignancy. 3. Loculated pleural effusions, moderate on the left and mild on the right. Multifocal regions of round atelectasis bilaterally. 4. Centrilobular emphysema. 5. Mild mediastinal adenopathy, possibly reactive. 6. Extensive calcifications throughout the left ventricular myocardium, nonspecific, considerations include post-infarction changes and myocarditis. Clinical correlation is recommended. Consider further characterization with echocardiography. Electronically signed by: Jero Leong M.D. 11/22/22 19:15 PM ECG Additional Comments: ECG normal sinus rhythm rate of 94. ST-T abnormality lateral leads Code Status & VTE Plan VTE Prophylaxis Plan VTE Prophylaxis will be ordered: Yes
[2022-11-22 21:34] LABS: Adenovirus PCR Not Detected (NotDetected); Bordetella parapertussis PCR Not Detected (NotDetected); Bordetella pertussis PCR Not Detected (NotDetected); Chlamydia pneumoniae PCR Not Detected (NotDetected); Coronavirus 229E PCR Not Detected (NotDetected); Coronavirus CoV-2 (COVID19)PCR Not Detected (NotDetected); Coronavirus HKU1 PCR Not Detected (NotDetected); Coronavirus NL63 PCR Not Detected (NotDetected); Coronavirus OC43PCR Not Detected (NotDetected); Human Metapneumovirus PCR Not Detected (NotDetected); Influenza A PCR Not Detected (NotDetected); Influenza B PCR Not Detected (NotDetected); Mycoplasma pneumoniae PCR Not Detected (NotDetected); Parainfluenza Virus 1 PCR Not Detected (NotDetected); Parainfluenza Virus 2 PCR Not Detected (NotDetected); Parainfluenza Virus 3 PCR Not Detected (NotDetected); Parainfluenza Virus 4 PCR Not Detected (NotDetected); Respiratory Syncytial VirusPCR Not Detected (NotDetected); Rhinovirus/Enterovirus PCR Not Detected (NotDetected)
[2022-11-22] MEDS ORDERED: ALBUTEROL HFA 8 GM INHALER INH PRN (23:58)
[2022-11-22] MEDS ORDERED: ACETAMINOPHEN 325 MG TAB PO PRN (23:58)
[2022-11-22] MEDS ORDERED: TRIAMCINOLONE ACET 0.1% CR 15 GM TUBE TOP PRN (23:58)
[2022-11-22] MEDS ORDERED: NITROGLYCERIN SL 0.4 MG/TAB TAB SL PRN (23:58)
[2022-11-22] MEDS ORDERED: ALBUT/IPRATROP 3MG/0.5MG NEB 3 ML VIAL INH PRN (23:58)
[2022-11-22] MEDS ORDERED: POLYETHYLENE (MIRALAX) 17 GM PACK PO PRN (23:58)
[2022-11-23] MEDS ORDERED: CLOBETASOL PROPIONATE 0.05% OINT 15 GM TUBE EXT PRN (00:36)
[2022-11-23] MEDS: SIMVASTATIN 40 MG TAB PO SCH ×2 (01:08→20:32)
[2022-11-23] MEDS: guaiFENesin 600 MG TABCR PO SCH ×3 (01:09→20:32)
[2022-11-23] MEDS: LATANOPROST 0.005% OP SOLN 2.5 ML BTL OPB SCH ×2 (01:09→20:32)
[2022-11-23] MEDS: ENOXAPARIN INJ 40 MG/0.4 ML SYR SQ SCH ×3 (01:09→21:08)
[2022-11-23] MEDS: ALBUT/IPRATROP 3MG/0.5MG NEB 3 ML VIAL NEB SCH ×4 (01:10→19:03)
[2022-11-23] MEDS: LEVOBUNOLOL HCL 0.5% OP SOLN 5 ML BTL OPB SCH ×4 (01:13→21:08)
[2022-11-23] MEDS ORDERED: ONDANSETRON INJ 2 MG/ML 2 ML VIAL IV PRN (01:27)
[2022-11-23] MEDS ORDERED: ONDANSETRON INJ 2 MG/ML 2 ML VIAL ONE (01:29)
[2022-11-23] MEDS: PIPERACILLIN/TAZOBACTAM 4.5 GM in DEXTROSE 5% 100 ML IV SCH ×3 (03:43→20:31)
[2022-11-23 05:59] LABS: BUN Creatinine Ratio 16.7 (10-20); Calcium 8.8 mg/dl (8.6-10.3); Creatinine Clr Calc Pharmacy 94.4 ml/min; Est GFR (African American) 111.6 ml/min; Est GFR (Non-African American) 96.3 ml/min; Magnesium 1.5 mg/dl (1.7-2.4); Potassium 4.4 mmol/L (3.5-5.1)
[2022-11-23 06:05] LABS: Basophils # (auto) 0.02 K/uL (0.00-0.20); Basophils % (auto) 0.3 %; Eosinophils # (auto) 0.03 K/uL (0.00-0.50); Eosinophils % (auto) 0.4 %; Hematocrit (blood only) 27.8 % (42.0-52.0); Hemoglobin 9.6 g/dl (14.0-18.0); Immature Granulocytes # (auto) 0.02 K/uL (0.01-0.20); Immature Granulocytes % (auto) 0.3 %; Lymphocytes # (auto) 0.62 K/uL (1.20-3.40); Lymphocytes % (auto) 8.8 %; Mean Corpuscular Hemoglobin 32.8 pg (25.0-34.0); Mean Corpuscular Hgb Conc 34.5 g/dL (32.0-36.0); Mean Corpuscular Volume 94.9 fL (80.0-100.0); Mean Platelet Volume 10.3 fL (9.4-12.4); Monocytes # (auto) 0.56 K/uL (0.11-0.59); Neutrophils # (auto) 5.79 K/uL (1.40-6.50); Neutrophils % (auto) 82.2 %; Platelet Count 305 K/uL (130-400); RDW Coefficient of Variation 13.5 % (11.5-14.5); RDW Standard Deviation 47.2 fL (36.4-46.3); Red Blood Count 2.93 M/uL (4.70-6.10); White Blood Count 7.04 K/ul (4.8-10.8)
--- NOTE | 2022-11-23 06:45 | Pharmacy Report ---
Pharmacy PK ABX Note - Date of Service November 23, 2022 - Assessment and Plan Assessment * Mr Matamoros is a 77 year old M receiving vancomycin/Zosyn for treatment of multifocal pna. * PMH is significant for COPD, CHF, recurrent pna (recent tx with PO doxy). * Blood cx pending. MRSA swab ordered but not yet collected. Plan Vancomycin * Loading dose: 1250 mg IV x 1 * Maintenance dose: 1000 mg IV every 12 hours * Regimen is predicted to achieve target AUC/GENTRY of 400-600 mg/L.hr * Will obtain a vanc level close to steady-state, or sooner if condition worsens. Cefepime 2gm IV x1 dose in ED, then Zosyn 4.5gm IV q8h Pharmacy will continue to follow and will adjust dose/frequency as necessary. Thank you. Pharmacy has transitioned to AUC monitoring for vancomycin. AUC/GENTRY is the preferred PK/PD target and is associated with decreased risk of nephrotoxicity compared to traditional trough targets.
[2022-11-23] MEDS: VANCOMYCIN HCL 1,000 MG in SODIUM CHLORIDE 0.9% 250 ML IV SCH ×2 (07:50→18:27)
[2022-11-23] MEDS ORDERED: FUROSEMIDE 20 MG TAB PO SCH (09:00)
[2022-11-23] MEDS: FLUTICASONE PROPIONATE NA SPR 16 GM BTL SCH (10:27)
[2022-11-23] MEDS: CHOLECALCIFEROL 1,000 UNITS 25 MCG TAB PO SCH (10:28)
[2022-11-23] MEDS: CEROVITE ADV FORMULA TAB PO SCH (10:28)
[2022-11-23] MEDS: SERTRALINE HCL 50 MG TABLET PO SCH (10:28)
[2022-11-23] MEDS: PSYLLIUM or GUAR GUM FIBER POWDER PACKET PO SCH (10:29)
--- NOTE | 2022-11-23 12:20 | Hospitalist Progress Note ---
Date of Service November 23, 2022 Assessment & Plan (1) Pleural effusion: (2) Hyponatremia: (3) Chronic diastolic heart failure: (4) Multifocal pneumonia: Plan: 77-year-old male with past medical significant for hyperlipidemia, COPD, pleural effusion, dyspnea on exertion, recurrent pneumonia, chronic diastolic CHF, primary open-angle glaucoma both eyes, presents with fevers going on for last week with shortness of breath on exertion, weakness, fatigue and cough bringing a slight of whitish phlegm .Was prescribed doxycycline as outpatient took for last 3 days but not improving so came to the ER. Reports recurrent pneumonia Has had thoracentesis in the past History of pleural effusions. Etiology unclear as per pulmonary plan for bronchoscopy if pleural effusions persist CTA Chest showed bilateral pleural effusion (Left >Right), widespread consolida tive opacities, centrilobular emphysema, extensive calcifications in LV myocardium. On presentation, labs were notable for BNP 1239, Mg 1.5, Na 128, Hb 10.7 He has multifocal pneumonia Bilateral pleural effusion. Per outpt pulm note, it seems effusion has been persistent With elevated BNP, myocardial calcification noted on CTA chest, EKG showing TWI in aVL, II, lateral leads; Cardiomyopathy is likely contributing to pleural effusion Outpatient TTE from 11/2021 noted EF 60-64%, mild conc LV, large Lt pleural effusion and possible ascites with cardiac displacement. No significant valvular pathology TTE today noted diffuse myocardial calcification affecting interventricular septum and basal segments, pattern not typical for that expected with scar related to ischemic cardiomyopathy. Also hypokinesis of basal inferoseptum, EF 55-60%, severe mitral calcification, mild dil LA, mild pulm HTN PASP 40, Grade III diastolic dysfunction Will follow up Cardiology evaluation and recommendation Possible acute on chronic diastolic heart failure Will do IV lasix 20mg daily for now until Cardiology finishes evaluation May need thoracentesis Awaiting Pulm evaluation Continue IV vanc and zosyn Monitor hyponatremia Check Serum osm, Uosm, Vanna Hyperlipidemia on statin DVT prophylaxis Lovenox Full code I spent a total of 60minutes coordinating, documenting and providing care for this patient excluding time spent in performance of separately billed services Admission and Anticipated Discharge Date Admission Date: November 22, 2022 Subjective Patient seen and examined Reports chronic cough productive of whitish sputum and SOB with activity that has worsened in the past week Reports having fever over the past week Was started on antibiotics without improvement and on follow up with PCP yesterday, was referred to the hospital Denied any chest pain, dizziness Reports some rhinorrhea. No congestion/sorethroat Denied PND/leg swelling. Reports he sleeps on his side with 2 pillows Denied nausea, vomiting, abd pain, diarrhea Reports freq which he attributed to his lasix. No dysuria, urgency, hematuria Smoked about 1ppd for 40years and quit 20years ago. Denied illicit drug use Only takes alcohol sparingly on occasion Physical Exam Constitutional: + well hydrated; no acute distress Eyes: PERRL, conjunctivae normal, anicteric sclerae ENMT: external ear and nose normal, oropharynx normal Respiratory: normal respiratory effort; no respiratory distress Diminished breath sounds lung bases especially on the left Cardiovascular: Rate/Rhythm: regular rate and regular rhythm S1 S2 Gastrointestinal (Abdomen): normal bowel sounds, soft, nontender, no hepatosplenomegaly Musculoskeletal: No pedal edema Neurologic: PERRL, EOMI, accommodation nl, no face palsy, no dysarthria Psychiatric: A+Ox3, euthymic affect Results & Data Results & Data Vital Signs (Past 12 Hours) Vital Signs Temp Pulse Pulse Resp BP BP BP 11/23/22 11:42 99 H 11/23/22 11:37 11/23/22 11:30 37.0 C 93 H 16 126/72 11/23/22 10:30 98 H 30 H 11/23/22 10:30 118/73 11/23/22 10:10 96 H 25 H 11/23/22 07:05 96 H 11/23/22 06:50 93 H 20 11/23/22 05:33 91 H 24 108/59 L 11/23/22 04:00 92 H 25 H 105/67 11/23/22 02:48 93 H 24 119/80 Pulse Ox O2 Del Method O2 Flow Rate 11/23/22 11:42 11/23/22 11:37 Nasal Cannula 2 11/23/22 11:30 93 Nasal Cannula 2 11/23/22 10:30 91 11/23/22 10:30 11/23/22 10:10 90 11/23/22 07:05 11/23/22 06:50 94 Room Air 11/23/22 05:33 93 Room Air 11/23/22 04:00 93 Room Air 11/23/22 02:48 92 Room Air Laboratory Results Abnormal lab results 11/22/22 11/22/22 11/22/22 Range/Units 17:34 17:34 17:34 RBC 3.30 L (4.70-6.10) M/uL Hgb 10.7 L (14.0-18.0) g/dl Hct 31.7 L (42.0-52.0) % RDW Std Deviation 48.2 H (36.4-46.3) fL Neut # (Auto) 7.18 H (1.40-6.50) K/uL Lymph # (Auto) 0.62 L (1.20-3.40) K/uL [place] # (Auto) 0.69 H (0.11-0.59) K/uL PT 12.4 H (9.0-12.0) Seconds Sodium 128 L (136-145) mmol/L Chloride 90 L (98-107) mmol/L Carbon Dioxide 33 H (21-32) mmol/L BUN/Creatinine Ratio 22.2 H (10-20) Glucose 106 H (70-99(Fasting)) mg/dl Magnesium 1.6 L (1.7-2.4) mg/dl AST 41 H (13-39) U/L Alkaline Phosphatase 153 H (34-104) U/L Troponin I High Sens 25.8 H (0-20) pg/ml B-Natriuretic Peptide (0-100) pg/ml Ur Specific [place] (1.000-1.030) Urine Protein (Negative) 11/22/22 11/22/22 11/22/22 Range/Units 17:34 19:41 20:20 RBC (4.70-6.10) M/uL Hgb (14.0-18.0) g/dl Hct (42.0-52.0) % RDW Std Deviation (36.4-46.3) fL Neut # (Auto) (1.40-6.50) K/uL Lymph # (Auto) (1.20-3.40) K/uL [place] # (Auto) (0.11-0.59) K/uL PT (9.0-12.0) Seconds Sodium (136-145) mmol/L Chloride (98-107) mmol/L Carbon Dioxide (21-32) mmol/L BUN/Creatinine Ratio (10-20) Glucose (70-99(Fasting)) mg/dl Magnesium (1.7-2.4) mg/dl AST (13-39) U/L Alkaline Phosphatase (34-104) U/L Troponin I High Sens 22.5 H (0-20) pg/ml B-Natriuretic Peptide 1239 H (0-100) pg/ml Ur Specific [place] > 1.045 H (1.000-1.030) Urine Protein Trace H (Negative) 11/22/22 11/23/22 11/23/22 Range/Units 21:38 05:11 05:11 RBC 2.93 L (4.70-6.10) M/uL Hgb 9.6 L (14.0-18.0) g/dl Hct 27.8 L (42.0-52.0) % RDW Std Deviation 47.2 H (36.4-46.3) fL Neut # (Auto) (1.40-6.50) K/uL Lymph # (Auto) 0.62 L (1.20-3.40) K/uL [place] # (Auto) (0.11-0.59) K/uL PT (9.0-12.0) Seconds Sodium (136-145) mmol/L Chloride (98-107) mmol/L Carbon Dioxide (21-32) mmol/L BUN/Creatinine Ratio (10-20) Glucose (70-99(Fasting)) mg/dl Magnesium (1.7-2.4) mg/dl AST (13-39) U/L Alkaline Phosphatase (34-104) U/L Troponin I High Sens 23.9 H 25.9 H (0-20) pg/ml B-Natriuretic Peptide (0-100) pg/ml Ur Specific [place] (1.000-1.030) Urine Protein (Negative) 11/23/22 11/23/22 Range/Units 05:11 11:04 RBC (4.70-6.10) M/uL Hgb (14.0-18.0) g/dl Hct (42.0-52.0) % RDW Std Deviation (36.4-46.3) fL Neut # (Auto) (1.40-6.50) K/uL Lymph # (Auto) (1.20-3.40) K/uL [place] # (Auto) (0.11-0.59) K/uL PT (9.0-12.0) Seconds Sodium 129 L (136-145) mmol/L Chloride 93 L (98-107) mmol/L Carbon Dioxide (21-32) mmol/L BUN/Creatinine Ratio (10-20) Glucose (70-99(Fasting)) mg/dl Magnesium 1.5 L (1.7-2.4) mg/dl AST (13-39) U/L Alkaline Phosphatase (34-104) U/L Troponin I High Sens 22.8 H (0-20) pg/ml B-Natriuretic Peptide (0-100) pg/ml Ur Specific [place] (1.000-1.030) Urine Protein (Negative)
[2022-11-23] MEDS: MAGNESIUM SULFATE / D5W 1 GM/100 ML BAG IV SCH ×2 (14:55→16:50)
[2022-11-23] MEDS: FUROSEMIDE INJ 20 MG/2 ML VIAL IV SCH (14:55)
[2022-11-23] MEDS ORDERED: MoRPHine SULFATE 2 MG/ML CARP IV STA (15:00)
--- NOTE | 2022-11-23 15:32 | Cardiology Consultation ---
Date of Consultation November 23, 2022 Assessment & Plan (1) Pleural effusion: (2) Multifocal pneumonia: (3) HFrEF (heart failure with reduced ejection fraction): -Echocardiogram was performed today and reviewed independently by the undersigned. The findings are technically limited with difficulty obtaining the standard imaging windows due to displacement of the heart with large left greater than right pleural effusions noted. There is diffuse myocardial calcification affecting the interventricular septum and basal segments as well as severe mitral annular calcification. There is focal hypokinesis of the basal inferoseptum, however the ejection fraction is preserved at 55 to 60%. The mitral valve apparatus is suboptimally visualized due to the dense calcification and resultant acoustic shadowing, and the mitral valve leaflet excursion cannot be visualized. No mitral stenosis that is detected by Doppler velocities. Grade 3 diastolic dysfunction suggested. The images obtained at the time of the previous echocardiogram performed within the [facility] as an outpatient in November, were reviewed. These images were very compromised due to the presence of a very large pleural effusion at that time. The ejection fraction was normal. Per review of his outpatient chart, similar findings are noted on CT of the chest performed at [facility] in 2019, CT of the chest performed 12/29/2020 within the [facility], and again on 11/22/2022 at [facility] with extensive myocardial calcification with pattern that could be compatible with previous myocardial infarction affecting the septal wall, but the appearance is somewhat atypical for myocardial infarction and other considerations including disorders of calcium metabolism or chronic sequela of myocarditis also consideration. Per available records, his calcium level has been normal. I personally question if this is late sequela from a myocarditis with some degree of restrictive physiology. With need to administer IV antibiotic, recommend transitioning to oral furosemide to start with a dose of 20 mg IV daily to at least keep his intake and output even. Patient will likely need repeat therapeutic thoracentesis and pulmonary medicine has been consulted. The patient's proBNP is mildly elevated. I do not think his presentation is suggestive of an acute coronary syndrome. Continue outpatient simvastatin. Case discussed with Dr. Burch of the hospitalist service for the purpose of coordination of care. 90 minutes were spent on direct patient care including performing a history and physical exam, reviewing outpatient records, reviewing images of his CT scan performed at this admission as well as the 2020 images performed within the [facility] system, reviewing his previous echocardiogram images dating back to November,, and pairing this document. History of Present Illness Attending Physician: Irina Burch MD History of Present Illness Ishmael Matamoros is a pleasant 77 year old male seen in cardiology consultation per the request of Dr. Campbell for the evaluation of dyspnea on exertion, with mild elevation in the high-sensitivity troponin levels. Patient is accompanied by his spouse,Raquel, and his daughter, Pam, at the bedside. He describes history of a 40 pound unintentional weight loss over the last 1 year with progressive shortness of breath. He notes recent fevers of chills several days duration, and has had a cough productive of a clear white mucus over the last 1 month. Initial chest x-ray revealed a large left and small right pleural effusion. He went on to have a CT angiogram of the chest and a CT of the abdomen and pelvis. Radiology report describes no evidence of pulmonary embolism however widespread and patchy bilateral subpleural and. Bronchovascular consolidative opacities noted concerning for pneumonia. The left-sided pleural effusion was noted to be loculated with bilateral atelectasis. Centrilobular emphysema noted. Extensive calcification noted throughout the left ventricular myocardium including mitral annular calcification as well as calcification of the interventricular septum. Per review of the patient's outside records a moderate right pleural effusion was first observed on chest x-ray and then CT of the chest performed within the [facility] health system in January and then February,. He underwent thoracentesis on at least 2 occasions at [facility]. A left sided thoracentesis had been performed by Dr Prasad at [facility] on 08/26/2022 yielding 1.5 L of fluid. Per review of outpatient pulmonary note within the [facility] dated 10/28/2022 he has a history of persistent right greater than left pleural effusions previously with negative cytology but findings consistent with exudate. Social History: including [place], + agent orange exposure, seen in the [facility] and [place]. [facility] (not ships) Worked in [employer], worked in a [employer] x 1 year w/o known exposures. Allergies Allergy/AdvReac Type Severity Reaction Status Date / Time No Known Allergies Allergy Verified 11/22/22 18:33 Home Medications Medication Instructions Recorded Confirmed Type albuterol sulfate 90 mcg/actuation 2 puff inhalation Q4H PRN 11/22/22 11/22/22 History aerosol inhaler COUGH/SHORTNESS OF BREATH/WHEEZING cholecalciferol (vitamin D3) 25 25 mcg PO DAILY 11/22/22 11/22/22 History mcg (1,000 unit) capsule (Vitamin D3) clobetasol 0.05 % topical cream 1 applic topical BID PRN Itching 11/22/22 11/22/22 History doxycycline hyclate 100 mg capsule 100 mg PO BID 11/22/22 11/22/22 History fluticasone propionate 50 1 spray intranasal DAILY 11/22/22 11/22/22 History mcg/actuation nasal spray,suspension furosemide 20 mg tablet (Lasix) 20 mg PO QAM 11/22/22 11/22/22 History guaifenesin 600 mg tablet, 600 mg PO Q12H 11/22/22 11/22/22 History extended release 12 hr ipratropium 0.5 mg-albuterol 3 mg 3 ml inhalation Q4H PRN Wheezing 11/22/22 11/22/22 History (2.5 mg base)/3 mL nebulization soln latanoprost 0.005 % eye drops 1 drp OPB PM 11/22/22 11/22/22 History levobunolol 0.5 % eye drops 1 drp OPB BID 11/22/22 11/22/22 History nyphhvvnzsmb-crrqepww-nnligh 1 tab PO DAILY 11/22/22 11/22/22 History tablet (Multivitamin 50 Plus tablet) ondansetron HCl 4 mg tablet 4 mg PO Q8H PRN NAUSEA/VOMITING 11/22/22 11/22/22 History psyllium husk 0.4 gram capsule 0.4 g PO DAILY 11/22/22 11/22/22 History (Fiber (psyllium husk)) sertraline 50 mg tablet 50 mg PO DAILY 11/22/22 11/22/22 History sildenafil 100 mg tablet 100 mg PO DAILY PRN Sexual Activity 11/22/22 11/22/22 History simvastatin 40 mg tablet 40 mg PO HS 11/22/22 11/22/22 History triamcinolone acetonide 0.1 % 1 applic topical DAILY PRN Itching 11/22/22 11/22/22 History topical cream Patient History Social History Smoking Status: Former smoker Tobacco Type: Cigarettes Hx Alcohol Use: Yes Alcohol type: beer Hx Substance Use: No Preferred Language: Nepali 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 Current Living Situation: Spouse Feels Safe at Home: Yes Assistive Devices: Denture - Upper, Denture - Lower, Glasses and Hearing Aid - Bilateral Review of Systems Constitutional: + fever, + chills, + malaise and + weight loss Respiratory: + cough; no hemoptysis Cardiovascular: + dyspnea at rest; no chest pain and no palpitations Physical Exam Constitutional: Thin in appearance, no acute distress Respiratory: Auscultation: + diminished lung sounds (Decreased breath sounds throughout the base and mid left lung field, right ); no rales and no wheezes Cardiovascular: Rate/Rhythm: regular rhythm Heart Sounds: + murmur (1/6 murmur) Extremities: no edema Neurologic: PERRL, EOMI, accommodation nl, no face palsy, no dysarthria Results & Data Vital Signs (Past 12 Hours) Vital Signs Temp Pulse Pulse Resp BP BP BP 11/23/22 15:29 91 H 11/23/22 13:37 92 H 16 11/23/22 11:42 99 H 11/23/22 11:37 11/23/22 11:30 37.0 C 93 H 16 126/72 11/23/22 10:30 98 H 30 H 11/23/22 10:30 118/73 11/23/22 10:10 96 H 25 H 11/23/22 07:05 96 H 11/23/22 06:50 93 H 20 11/23/22 05:33 91 H 24 108/59 L 11/23/22 04:00 92 H 25 H 105/67 Pulse Ox O2 Del Method O2 Flow Rate 11/23/22 15:29 11/23/22 13:37 94 Nasal Cannula 2 11/23/22 11:42 11/23/22 11:37 Nasal Cannula 2 11/23/22 11:30 93 Nasal Cannula 2 11/23/22 10:30 91 11/23/22 10:30 11/23/22 10:10 90 11/23/22 07:05 11/23/22 06:50 94 Room Air 11/23/22 05:33 93 Room Air 11/23/22 04:00 93 Room Air Laboratory Results Cardiac Enzymes 11/22/22 11/22/22 11/22/22 Range/Units 17:34 17:34 19:41 AST 41 H (13-39) U/L Troponin I High Sens 25.8 H 22.5 H (0-20) pg/ml B-Natriuretic Peptide 1239 H (0-100) pg/ml 11/22/22 11/23/22 11/23/22 Range/Units 21:38 05:11 11:04 AST (13-39) U/L Troponin I High Sens 23.9 H 25.9 H 22.8 H (0-20) pg/ml B-Natriuretic Peptide (0-100) pg/ml Coagulation 11/22/22 11/22/22 Range/Units 17:34 17:34 PT 12.4 H (9.0-12.0) Seconds B-Natriuretic Peptide 1239 H (0-100) pg/ml CBC 11/22/22 11/23/22 Range/Units 17:34 05:11 WBC 8.61 7.04 (4.8-10.8) K/ul RBC 3.30 L 2.93 L (4.70-6.10) M/uL Hgb 10.7 L 9.6 L (14.0-18.0) g/dl Hct 31.7 L 27.8 L (42.0-52.0) % Plt Count 355 305 (130-400) K/uL Neut # (Auto) 7.18 H 5.79 (1.40-6.50) K/uL Lymph # (Auto) 0.62 L 0.62 L (1.20-3.40) K/uL [place] # (Auto) 0.69 H 0.56 (0.11-0.59) K/uL Eos # (Auto) 0.07 0.03 (0.00-0.50) K/uL Baso # (Auto) 0.03 0.02 (0.00-0.20) K/uL Comprehensive Metabolic Panel 11/22/22 11/23/22 Range/Units 17:34 05:11 Sodium 128 L 129 L (136-145) mmol/L Potassium 4.6 4.4 (3.5-5.1) mmol/L Chloride 90 L 93 L (98-107) mmol/L Carbon Dioxide 33 H 32 (21-32) mmol/L BUN 14 10 (6-23) mg/dl Creatinine 0.63 0.60 (0.6-1.4) mg/dl Glucose 106 H 97 (70-99(Fasting)) mg/dl Calcium 9.7 8.8 (8.6-10.3) mg/dl AST 41 H (13-39) U/L ALT 34 (7-52) U/L Alkaline Phosphatase 153 H (34-104) U/L Total Protein 6.6 (6.0-8.3) gm/dl Albumin 3.5 (3.4-5.0) gm/dl Intake and Output 11/23/22 11/23/22 11/23/22 06:59 14:59 22:59 Intake Total 240 / 240 1630 / 1630 Output Total 205 / 205 Balance 240 / 240 1425 / 1425 Intake: IV 1390 / 1390 Piperacillin/Tazobactam 4.5 gm 120 / 120 In Dextrose 5% 100 ml @ 30 mls/ hr IV Q8H [facility] Rx#:[id number] Sodium Chloride 0.9% 1000ML 1, 1000 / 1000 000 ml @ 80 mls/hr IV .[id number] [facility] Rx#:[id number] Vancomycin HCl 1,000 mg In 270 / 270 Sodium Chloride 0.9% 250 ml @ 200 mls/hr IV Q12H [facility] Rx#: [id number] Oral 240 / 240 240 / 240 Output: Urine 205 / 205 Other: Weight 65.8 kg Diagnostic Findings EKG reveals a sinus rhythm at 91 bpm with noted T wave inversions in the lateral leads I and aVL. Compared to the previous performed on 11/22/2022, the lateral repolarization changes are relatively unchanged. An age-indeterminate septal infarction pattern was noted on 11/22/2022, with improved R wave progression on the present tracing. No previous EKG tracings are available in the outpatient chart for review.
--- NOTE | 2022-11-23 15:40 | Pulmonary Consultation ---
Date of Consultation November 23, 2022 Assessment & Plan (1) Chronic diastolic heart failure: (2) Pleural effusion: (3) SOB (shortness of breath): (4) Elevated troponin: (5) Multifocal pneumonia: Plan ASSESSMENT/PLAN: 1. Recurrent Pleural Effusions-Bilaterally -S/P previous thoracentesis -Bilateral Pleural Effusions -Consider: Heart Failure Malignancy parapneumonia Mycobacterium/Fungal -Thoracentesis 2. Chronic HF -Grade III Diastolic Dysfunction -severely calcified mitral valve -Mild pulmonary HTN -LVEF=55-60% -diffuse myocardial calcification 3. COPD/Centrilobular Emphysema -H/O Tobacco Abuse -supplemental oxygen -Duonebs PRN -expectorant, Mucinex 4. Multifocal Pneumonia -per Chest CT scan -sputum for culture -ATB'S: Cefepime and vancomycin 5. Sleep paralysis and cataplexy -Polysomnographic evaluation 6. Hyperlipidemia -Simvastatin History of Present Illness Reason for Consultation: Recurrence pleural effusions, left greater than right. Progressive dyspnea. Requesting Physician: MD Shannan, [facility] Attending Physician: Irina Burch MD History of Present Illness History taken from patient and his at bedside along with initial history and physical is that Mr. Matamoros is a 77-year-old gentleman who presents to the emergency room here at [facility] yesterday due to progressive shortness of breath for the past several days along with a productive cough of whitish sputum. He was recently prescribed doxycycline which he did take for the last 3 days but however felt his symptomatology was not improving therefore he presented to the emergency room. Most recently according to him and his he had a pulmonary telemedicine visit with the [facility] tower erector helper in August of which he is to follow-up with in approximately 6 weeks time. Patient has undergone 2 prior thoracenteses in the last 2 years most recent one was several months ago. He is lost 40 pounds in the last year. He states that the analysis from his previous thoracentesis has not shown any evidence of malignancy or infection. Upon presentation patient did have a temperature of 100.7. And admi tted to poor appetite. Allergies Allergy/AdvReac Type Severity Reaction Status Date / Time No Known Allergies Allergy Verified 11/22/22 18:33 Home Medications Medication Instructions Recorded Confirmed Type albuterol sulfate 90 mcg/actuation 2 puff inhalation Q4H PRN 11/22/22 11/22/22 History aerosol inhaler COUGH/SHORTNESS OF BREATH/WHEEZING cholecalciferol (vitamin D3) 25 25 mcg PO DAILY 11/22/22 11/22/22 History mcg (1,000 unit) capsule (Vitamin D3) clobetasol 0.05 % topical cream 1 applic topical BID PRN Itching 11/22/22 11/22/22 History doxycycline hyclate 100 mg capsule 100 mg PO BID 11/22/22 11/22/22 History fluticasone propionate 50 1 spray intranasal DAILY 11/22/22 11/22/22 History mcg/actuation nasal spray,suspension furosemide 20 mg tablet (Lasix) 20 mg PO QAM 11/22/22 11/22/22 History guaifenesin 600 mg tablet, 600 mg PO Q12H 11/22/22 11/22/22 History extended release 12 hr ipratropium 0.5 mg-albuterol 3 mg 3 ml inhalation Q4H PRN Wheezing 11/22/22 11/22/22 History (2.5 mg base)/3 mL nebulization soln latanoprost 0.005 % eye drops 1 drp OPB PM 11/22/22 11/22/22 History levobunolol 0.5 % eye drops 1 drp OPB BID 11/22/22 11/22/22 History jwrenpzxifgk-evxtmmpl-yzorvl 1 tab PO DAILY 11/22/22 11/22/22 History tablet (Multivitamin 50 Plus tablet) ondansetron HCl 4 mg tablet 4 mg PO Q8H PRN NAUSEA/VOMITING 11/22/22 11/22/22 History psyllium husk 0.4 gram capsule 0.4 g PO DAILY 11/22/22 11/22/22 History (Fiber (psyllium husk)) sertraline 50 mg tablet 50 mg PO DAILY 11/22/22 11/22/22 History sildenafil 100 mg tablet 100 mg PO DAILY PRN Sexual Activity 11/22/22 11/22/22 History simvastatin 40 mg tablet 40 mg PO HS 11/22/22 11/22/22 History triamcinolone acetonide 0.1 % 1 applic topical DAILY PRN Itching 11/22/22 11/22/22 History topical cream Patient History Social History Smoking Status: Former smoker Tobacco Type: Cigarettes Hx Alcohol Use: Yes Alcohol type: beer Hx Substance Use: No Preferred Language: Italian Communication Ability: Effective [employer] Required: No Current Living Situation: Spouse Feels Safe at Home: Yes Assistive Devices: Denture - Upper, Denture - Lower, Glasses and Hearing Aid - Bilateral Review of Systems Review of Systems: All systems reviewed & are unremarkable except as noted in HPI & below Constitutional: 40 pound weight loss in the last year. Respiratory: Increasing shortness of breath with productive cough. Physical Exam Constitutional: WD/WN, vitals as above No acute cardiopulmonary distress. Eyes: PERRL, conjunctivae normal, anicteric sclerae Wearing glasses. ENMT: external ear and nose normal, oropharynx normal Neck: trachea midline, no thyromegaly Respiratory: Scattered coarse rhonchi most prominent in the mid to basilar lung lopez. Dimi nished breath sounds to the lower half of the left posterior thorax consistent with his pleural effusion. Although per CT and chest x-ray patient also has a small right basilar pleural effusion. No wheezing appreciated. Cardiovascular: RRR, no murmur, no edema S1-S2 within normal limits without any rubs gallops or clicks. Gastrointestinal (Abdomen): normal bowel sounds, soft, nontender, no hepatosplenomegaly Musculoskeletal: no cyanosis or clubbing, extremities motor strength 5/5 Significant bony deformities to his spine upper and lower extremities consistent with severe rheumatoid arthritis Skin: no rashes, warm and dry Small areas of increased pigmentation small elliptical lesions consistent with possible actinic keratosis. No abrasions or tears. Neurologic: patellar DTR's 2+ bilat, sensation intact and PERRL, EOMI, accommodation nl, no face palsy, no dysarthria Psychiatric: A+Ox3, euthymic affect Results & Data Results & Data Vital Signs (Past 12 Hours) Vital Signs Temp Pulse Pulse Resp BP BP BP 11/23/22 13:37 92 H 16 11/23/22 11:42 99 H 11/23/22 11:37 11/23/22 11:30 37.0 C 93 H 16 126/72 11/23/22 10:30 98 H 30 H 11/23/22 10:30 118/73 11/23/22 10:10 96 H 25 H 11/23/22 07:05 96 H 11/23/22 06:50 93 H 20 11/23/22 05:33 91 H 24 108/59 L 11/23/22 04:00 92 H 25 H 105/67 Pulse Ox O2 Del Method O2 Flow Rate 11/23/22 13:37 94 Nasal Cannula 2 11/23/22 11:42 11/23/22 11:37 Nasal Cannula 2 11/23/22 11:30 93 Nasal Cannula 2 11/23/22 10:30 91 11/23/22 10:30 11/23/22 10:10 90 11/23/22 07:05 11/23/22 06:50 94 Room Air 11/23/22 05:33 93 Room Air 11/23/22 04:00 93 Room Air Laboratory Results Laboratory Results WBC 7.04 K/ul (4.8-10.8) 11/23/22 05:11 RBC 2.93 M/uL (4.70-6.10) L 11/23/22 05:11 Hgb 9.6 g/dl (14.0-18.0) L 11/23/22 05:11 Hct 27.8 % (42.0-52.0) L 11/23/22 05:11 MCV 94.9 fL (80.0-100.0) 11/23/22 05:11 MCH 32.8 pg (25.0-34.0) 11/23/22 05:11 MCHC 34.5 g/dL (32.0-36.0) 11/23/22 05:11 RDW Std Deviation 47.2 fL (36.4-46.3) H 11/23/22 05:11 RDW Coeff of Lizeth 13.5 % (11.5-14.5) 11/23/22 05:11 Plt Count 305 K/uL (130-400) 11/23/22 05:11 MPV 10.3 fL (9.4-12.4) 11/23/22 05:11 Immature Gran % (Auto) 0.3 % 11/23/22 05:11 Neut % (Auto) 82.2 % 11/23/22 05:11 Lymph % (Auto) 8.8 % 11/23/22 05:11 [place] % (Auto) 8.0 % 11/23/22 05:11 Eos % (Auto) 0.4 % 11/23/22 05:11 Baso % (Auto) 0.3 % 11/23/22 05:11 Neut # (Auto) 5.79 K/uL (1.40-6.50) 11/23/22 05:11 Lymph # (Auto) 0.62 K/uL (1.20-3.40) L 11/23/22 05:11 [place] # (Auto) 0.56 K/uL (0.11-0.59) 11/23/22 05:11 Eos # (Auto) 0.03 K/uL (0.00-0.50) 11/23/22 05:11 Baso # (Auto) 0.02 K/uL (0.00-0.20) 11/23/22 05:11 Immature Gran # (Auto) 0.02 K/uL (0.01-0.20) 11/23/22 05:11 PT 12.4 Seconds (9.0-12.0) H 11/22/22 17:34 INR 1.1 (0.9-1.1) 11/22/22 17:34 Sodium 129 mmol/L (136-145) L 11/23/22 05:11 Potassium 4.4 mmol/L (3.5-5.1) 11/23/22 05:11 Chloride 93 mmol/L (98-107) L 11/23/22 05:11 Carbon Dioxide 32 mmol/L (21-32) 11/23/22 05:11 Anion Gap 4 (3-11) 11/23/22 05:11 BUN 10 mg/dl (6-23) 11/23/22 05:11 Creatinine 0.60 mg/dl (0.6-1.4) 11/23/22 05:11 Est Cr Clr Drug Dosing 94.4 ml/min 11/23/22 05:11 Est GFR ( Amer) 111.6 ml/min 11/23/22 05:11 Est GFR (Non-Af Amer) 96.3 ml/min 11/23/22 05:11 BUN/Creatinine Ratio 16.7 (10-20) 11/23/22 05:11 Glucose 97 mg/dl (70-99(Fasting)) 11/23/22 05:11 Calcium 8.8 mg/dl (8.6-10.3) 11/23/22 05:11 Magnesium 1.5 mg/dl (1.7-2.4) L 11/23/22 05:11 Total Bilirubin 0.5 mg/dl (0.2-1.0) 11/22/22 17:34 AST 41 U/L (13-39) H 11/22/22 17:34 ALT 34 U/L (7-52) 11/22/22 17:34 Alkaline Phosphatase 153 U/L (34-104) H 11/22/22 17:34 Troponin I High Sens 22.8 pg/ml (0-20) H 11/23/22 11:04 B-Natriuretic Peptide 1239 pg/ml (0-100) H 11/22/22 17:34 Total Protein 6.6 gm/dl (6.0-8.3) 11/22/22 17:34 Albumin 3.5 gm/dl (3.4-5.0) 11/22/22 17:34 Globulin 3.1 gm/dl (2.5-4.0) 11/22/22 17:34 Albumin/Globulin Ratio 1.1 (0.9-2) 11/22/22 17:34 Procalcitonin 0.11 ng/ml (0-0.5) 11/23/22 07:52 Urine Color Yellow 11/22/22 20:20 Urine Appearance Clear (Clear) 11/22/22 20:20 Urine pH 6.5 (4.5-7.5) 11/22/22 20:20 Ur Specific [place] > 1.045 (1.000-1.030) H 11/22/22 20:20 Urine Protein Trace (Negative) H 11/22/22 20:20 Urine Glucose (UA) Negative (Negative) 11/22/22 20:20 Urine Ketones Negative (Negative) 11/22/22 20:20 Urine Blood Negative (Negative) 11/22/22 20:20 Urine Nitrite Negative (Negative) 11/22/22 20:20 Urine Bilirubin Negative (Negative) 11/22/22 20:20 Urine Urobilinogen Negative (Negative) 11/22/22 20:20 Ur Leukocyte Esterase Negative (Negative) 11/22/22 20:20 Urine WBC (Auto) 1-5 /hpf (0-5) 11/22/22 20:20 Urine RBC (Auto) 0-4 /hpf (0-4) 11/22/22 20:20 U Hyaline Cast (Auto) 0 /lpf (0-5) 11/22/22 20:20 U Epithel Cells (Auto) 0-5 /lpf (0-5) 11/22/22 20:20 Urine Bacteria (Auto) Negative (Negative) 11/22/22 20:20 Nasal Screen MRSA (PCR) Negative (Negative) 11/23/22 11:20 Adenovirus (PCR) Not Detected (NotDetected) 11/22/22 Unknown B. pertussis DNA (PCR) Not Detected (NotDetected) 11/22/22 Unknown B.parapertussis DNA PCR Not Detected (NotDetected) 11/22/22 Unknown C. pneumoniae DNA (PCR) Not Detected (NotDetected) 11/22/22 Unknown Coronavirus OC43 (PCR) Not Detected (NotDetected) 11/22/22 Unknown Coronavirus HKU1 (PCR) Not Detected (NotDetected) 11/22/22 Unknown Coronavirus 229E (PCR) Not Detected (NotDetected) 11/22/22 Unknown SARS-CoV-2 (PCR) Not Detected (NotDetected) 11/22/22 Unknown Coronavirus NL63 (PCR) Not Detected (NotDetected) 11/22/22 Unknown Human Metapneumovir PCR Not Detected (NotDetected) 11/22/22 Unknown Influenza Type A (PCR) Not Detected (NotDetected) 11/22/22 Unknown Influenza Type B (PCR) Not Detected (NotDetected) 11/22/22 Unknown M. pneumoniae (PCR) Not Detected (NotDetected) 11/22/22 Unknown Parainfluenza 1 (PCR) Not Detected (NotDetected) 11/22/22 Unknown Parainfluenza 2 (PCR) Not Detected (NotDetected) 11/22/22 Unknown Parainfluenza 3 (PCR) Not Detected (NotDetected) 11/22/22 Unknown Parainfluenza 4 (PCR) Not Detected (NotDetected) 11/22/22 Unknown RSV (PCR) Not Detected (NotDetected) 11/22/22 Unknown Entero/Rhino (PCR) Not Detected (NotDetected) 11/22/22 Unknown Impressions Abdomen/Pelvis CT 11/22/22 17:21 Exam(s): CT ABDOMEN + PELVIS With Contrast IV Amt: 117ml optiray 350 EXAM: CT Abdomen and Pelvis With Intravenous Contrast CLINICAL HISTORY: Reason for exam: 40 wt loss, SOB, effusions, decreased appetite. TECHNIQUE: Axial computed tomography images of the abdomen and pelvis with intravenous contrast. CTDI is 37.01 mGy and DLP is 1030.98 mGy-cm. Automated exposure control was utilized for the study. A dose lowering technique was utilized adhering to the principles of ALARA. CONTRAST: Patient received 117ml optiray 350 of IV contrast COMPARISON: No relevant prior studies available. FINDINGS: Chest findings are reported separately. Liver, gallbladder, spleen, pancreas, and adrenal glands are unremarkable. Kidneys enhance symmetrically, without hydronephrosis or significant perinephric stranding. There is extensive aortoiliac and mesenteric arterial atherosclerosis. There is no aortic aneurysm. 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 There is no adenopathy. There is no free air or significant ascites. Trace perisplenic ascites is noted. There is no bowel obstruction or inflammatory change. Appendix is not visualized with certainty. Urinary bladder and prostate are unremarkable. There are age-related degenerative changes of the spine and hips. There are no acute osseous findings. IMPRESSION: 1. 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 Bowel shows no direct evidence of ischemic change. 2. Otherwise, no acute or significant intra-abdominal findings. 3. Please refer to CT chest of the same date, reported separately. Electronically signed by: Jero Leong M.D. 11/22/22 19:20 PM Chest CTA 11/22/22 17:21 Exam(s): CTA CHEST IV Amt: 117ml optiray 350 EXAM: CT Angiography Chest With Intravenous Contrast CLINICAL HISTORY: Reason for exam: SOB, pleural effusion, ? mass, PE. TECHNIQUE: Axial computed tomographic angiography images of the chest with intravenous contrast. CTDI is 37.01 mGy and DLP is 1030.98 mGy-cm. Automated exposure control was utilized for the study. A dose lowering technique was utilized adhering to the principles of ALARA. MIP reconstructed images were created and reviewed. COMPARISON: No relevant prior studies available. FINDINGS: Thyroid gland is unremarkable. There are mildly enlarged multicompartment mediastinal lymph nodes. No hilar or axillary lymphadenopathy is visualized. Thoracic aorta is calcified but normal in caliber. There is no dissection. There is adequate pulmonary artery opacification. Main pulmonary artery is normal in caliber. There is no evidence of acute pulmonary embolism. There is a moderate loculated left pleural effusion. Extensive round atelectasis is present in the lingula and right lower lobe. There is a small loculated right pleural effusion with round atelectasis in the right lower lobe. Additionally, there are patchy consolidative opacities throughout the lungs, located in the bilateral upper lobes, bilateral lower lobes, and right middle lobe. Some consolidations are subpleural in location, while others are peribronchovascular. There is a background of centrilobular emphysema. There is no pneumothorax. Heart size is normal. Coronary arteries are calcified. There is no significant RV strain. Extensive myocardial calcifications are present within the left ventricle. There is no acute fracture or dislocation. IMPRESSION: 1. No evidence of acute pulmonary embolism. 2. Widespread and patchy bilateral subpleural and peribronchovascular consolidative opacities concerning for multifocal pneumonia. Imaging follow-up after treatment completion recommended to exclude underlying malignancy. 3. Loculated pleural effusions, moderate on the left and mild on the right. Multifocal regions of round atelectasis bilaterally. 4. Centrilobular emphysema. 5. Mild mediastinal adenopathy, possibly reactive. 6. Extensive calcifications throughout the left ventricular myocardium, nonspecific, considerations include post-infarction changes and myocarditis. Clinical correlation is recommended. Consider further characterization with echocardiography. Electronically signed by: Jero Leong M.D. 11/22/22 19:15 PM Medications Administered Home Medications Medication Instructions Recorded Confirmed Last Taken albuterol sulfate 90 mcg/actuation 2 puff inhalation Q4H PRN 11/22/22 11/22/22 Unknown aerosol inhaler COUGH/SHORTNESS OF BREATH/WHEEZING cholecalciferol (vitamin D3) 25 25 mcg PO DAILY 11/22/22 11/22/22 11/22/22 mcg (1,000 unit) capsule (Vitamin D3) clobetasol 0.05 % topical cream 1 applic topical BID PRN Itching 11/22/2211/22 Unknown doxycycline hyclate 100 mg capsule 100 mg PO BID 11/22/22 11/22/22 11/22/22 08:00 fluticasone propionate 50 1 spray intranasal DAILY 11/22/22 11/22/22 11/22/22 mcg/actuation nasal spray,suspension furosemide 20 mg tablet (Lasix) 20 mg PO QAM 11/22/22 11/22/22 11/22/22 guaifenesin 600 mg tablet, 600 mg PO Q12H 11/22/22 11/22/22 11/22/22 08:00 extended release 12 hr ipratropium 0.5 mg-albuterol 3 mg 3 ml inhalation Q4H PRN Wheezing 11/22/22 11/22/22 Unknown (2.5 mg base)/3 mL nebulization soln latanoprost 0.005 % eye drops 1 drp OPB PM 11/22/22 11/22/22 11/21/22 levobunolol 0.5 % eye drops 1 drp OPB BID 11/22/22 11/22/22 11/22/22 08:00 oztuzdepvois-nvqizjxz-kpvvqn 1 tab PO DAILY 11/22/22 11/22/22 11/22/22 tablet (Multivitamin 50 Plus tablet) ondansetron HCl 4 mg tablet 4 mg PO Q8H PRN NAUSEA/VOMITING 11/22/22 11/22/22 Unknown psyllium husk 0.4 gram capsule 0.4 g PO DAILY 11/22/22 11/22/22 11/22/22 (Fiber (psyllium husk)) sertraline 50 mg tablet 50 mg PO DAILY 11/22/22 11/22/22 11/22/22 sildenafil 100 mg tablet 100 mg PO DAILY PRN Sexual Activity 11/22/22 11/22/22 Unknown simvastatin 40 mg tablet 40 mg PO HS 11/22/22 11/22/22 11/21/22 triamcinolone acetonide 0.1 % 1 applic topical DAILY PRN Itching 11/22/22 11/22/22 Unknown topical cream Active Medications Generic Name Dose Route Start Last Admin Trade Name Freq PRN Reason Stop Dose Admin Albuterol 3 ml 11/22/22 23:58 11/23/22 13:37 Albut/Ipratrop 3mg/0.5mg Neb 3 Ml Vial NEB 12/22/22 23:57 3 ml TIDR SATURNINO Administration Protocol Enoxaparin Sodium 40 mg 11/22/22 23:58 11/23/22 01:09 Enoxaparin Inj 40 Mg/0.4 Ml Syr SQ 12/22/22 23:57 40 mg HS SATURNINO Administration Fluticasone Propionate 1 sprays 11/23/22 09:00 11/23/22 10:27 Fluticasone Propionate Na Spr 16 Gm Btl NA 12/23/22 08:59 1 sprays DAILY SATURNINO Administration Furosemide 20 mg 11/23/22 09:00 11/23/22 10:28 Furosemide 20 Mg Tab PO 12/23/22 08:59 20 mg QAM SATURNINO Administration Furosemide 20 mg 11/23/22 14:30 11/23/22 14:55 Furosemide Inj 20 Mg/2 Ml Vial IV 12/23/22 14:29 20 mg DAILY SATURNINO Administration Guaifenesin 600 mg 11/22/22 23:58 11/23/22 10:28 Guaifenesin 600 Mg Tabcr PO 12/22/22 23:57 600 mg Q12 SATURNINO Administration Piperacillin Sod/Tazobactam 120 mls @ 30 mls/hr 11/23/22 04:00 11/23/22 13:21 Sod 4.5 gm/ Dextrose IV 11/30/22 03:59 30 mls/hr Q8H SATURNINO Administration Protocol Vancomycin HCl 1,000 mg/ 270 mls @ 200 mls/hr 11/23/22 06:00 11/23/22 09:11 Sodium Chloride IV 11/30/22 05:59 Infused Q12H SATURNINO Infusion Magnesium Sulfate/Dextrose 1 gm in 100 mls @ 50 mls/hr 11/23/22 14:30 11/23/22 14:55 Magnesium Sulfate / D5w IV 11/23/22 18:29 50 mls/hr Q2H SATURNINO Administration Latanoprost 1 drops 11/22/22 23:58 11/23/22 01:09 Latanoprost 0.005% Op Soln 2.5 Ml Btl OPB 12/22/22 23:57 1 drops PM SATURNINO Administration Levobunolol HCl 1 drops 11/22/22 23:58 11/23/22 10:27 Levobunolol Hcl 0.5% Op Soln 5 Ml Btl OPB 12/22/22 23:57 1 drops BID SATURNINO Administration Multivitamins/Minerals 1 tab 11/23/22 09:00 11/23/22 10:28 Cerovite Adv Formula Tab PO 12/23/22 08:59 1 tab DAILY SATURNINO Administration Psyllium Hydrophilic Mucilloid 1 pkt 11/23/22 09:00 11/23/22 10:29 Psyllium Or Guar Gum Fiber Powder Packet PO 12/23/22 08:59 1 pkt DAILY SATURNINO Administration Sertraline HCl 50 mg 11/23/22 09:00 11/23/22 10:28 Sertraline Hcl 50 Mg Tablet PO 12/23/22 08:59 50 mg DAILY SATURNINO Administration Simvastatin 40 mg 11/22/22 23:58 11/23/22 01:08 Simvastatin 40 Mg Tab PO 12/22/22 23:57 40 mg HS SATURNINO Administration Vitamin D 1,000 units 11/23/22 09:00 11/23/22 10:28 Cholecalciferol 1,000 Units 25 Mcg Tab PO 12/23/22 08:59 1,000 units DAILY SATURNINO Administration PG Care Time/CCT Total # of Minutes Spent Total Time Spent with Patient: Total time spent is greater than 50% in coordination of care (as documented) at patient's floor/unit and/or counseling patient: Total pulmonary time spent examining and speaking to patient and his , reviewing all of his diagnostic studies including his radiologic studies in addition to discussing the pulmonary management with his bedside nurse and the patient exclusive any invasive procedures or family conferences today was 47 minutes. Coding Level of Care Code 65900 IN/OBS CONSULT LVL 3,45M Diagnoses Chronic diastolic heart failure I50.32 Pleural effusion J90 SOB (shortness of breath) R06.02 Elevated troponin R77.8 Multifocal pneumonia J18.9
--- NOTE | 2022-11-23 15:44 | XRay Report ---
XR chest 1V portable CLINICAL HISTORY: left sided thoracentesis TECHNIQUE: Single frontal radiograph of the chest was obtained. Comparison: Comparison is made to chest radiograph 11/22/2022 FINDINGS: No lines and tubes are seen. Cardiomegaly is noted. Multifocal airspace opacities are seen. Small rig ht and moderate left pleural effusions. IMPRESSION: Interval decrease in size of left pleural effusion which is now moderate in size. No pneumothorax. St able right pleural effusion and multifocal airspace opacities. ACT 112: Negative or not required by law. Electronically signed by: Gideon Lee M.D. 11/23/2022 3:43 PM
--- NOTE | 2022-11-23 15:50 | Procedure Note ---
Procedure Note Date of Service November 23, 2022 Note Procedure: Diagnostic therapeutic ultrasound-guided catheter thoracentesis Books Binder: Edi Farah DO Indication: Recurrent Pleural effusions, left > right Consent: Signed by patient and verified with timeout prior to procedure Anesthesia: 5 mL's 1% lidocaine without epinephrine local. Procedure: Consent was verified and timeout performed. Appropriate imaging studies were reviewed prior to the procedure. Patient was placed in a seated position and limited thoracic ultrasound was performed of the left chest. See separate imaging. Site appropriate for thoracentesis was selected. The skin was prepped and draped in normal sterile fashion. Lidocaine 1% without epinephrine was used for local analgesia. Fluid was aspirated via the finder needle. A small skin tessie was made with the scalpel and the catheter over the needle apparatus was advanced over the rib into the pleural space. Using the syringe one-way valve system, a total of 1500 mL's of serosanguineous pleural fluid was removed. Procedure was terminated due to left anterior chest pain. The catheter was removed and observed to be intact. A sterile dressing was applied. Post procedure chest x-ray was ordered. Stat portable chest x-ray did reveal significant diminishment to pleural effusion Fluid was sent for cytology, protein, LDH, pH, AFB smear and culture, fungal smear and culture, aerobic and anaerobic cultures with Gram stain. The patient tolerated the procedure well without obvious complication Coding CPT Codes Pulmonary/Thoracic - Pulmonary and Thoracic: 25203 Pleural drainage w/imaging ([id number]) [facility] [place] Procedure Codes (Charges) Pulmonary/Thoracic Procedure 1: Pulmonary and Thoracic: 17869 Pleural drainage w/imaging
[2022-11-23 16:15] LABS: Total Protein 6.6 gm/dl (6.0-8.3)
[2022-11-23 19:29] LABS: Appearance Pleural Fluid Hazy; Color Pleural Fluid Amber; Lymphocytes, Fluid 82 %; Mono,Macrophage,Mesothelial 13 %; Neutrophils, Fluid 5 %; RBC Pleural Fluid Auto 12000 /uL; Source Pleural Fluid Left Lung; WBC Pleural Fluid Auto 335 /uL
[2022-11-24] MEDS: PIPERACILLIN/TAZOBACTAM 4.5 GM in DEXTROSE 5% 100 ML IV SCH ×2 (04:36→12:22)
[2022-11-24] MEDS ORDERED: VANCOMYCIN LEVEL ONE (04:44)
[2022-11-24 06:22] LABS: Hematocrit (blood only) 28.1 % (42.0-52.0); Hemoglobin 9.8 g/dl (14.0-18.0); Mean Corpuscular Hemoglobin 32.7 pg (25.0-34.0); Mean Corpuscular Hgb Conc 34.9 g/dL (32.0-36.0); Mean Corpuscular Volume 93.7 fL (80.0-100.0); Mean Platelet Volume 9.6 fL (9.4-12.4); Platelet Count 315 K/uL (130-400); RDW Coefficient of Variation 13.4 % (11.5-14.5); RDW Standard Deviation 46.2 fL (36.4-46.3)
[2022-11-24] MEDS: VANCOMYCIN HCL 1,000 MG in SODIUM CHLORIDE 0.9% 250 ML IV SCH (06:41)
[2022-11-24] MEDS: ALBUT/IPRATROP 3MG/0.5MG NEB 3 ML VIAL NEB SCH ×3 (06:46→18:53)
[2022-11-24 07:05] LABS: BUN Creatinine Ratio 16.1 (10-20); Calcium 8.8 mg/dl (8.6-10.3); Creatinine Clr Calc Pharmacy 89.3 ml/min; Est GFR (African American) 110.1 ml/min; Magnesium 1.6 mg/dl (1.7-2.4); Phosphorus 3.3 mg/dl (2.5-4.9)
--- NOTE | 2022-11-24 08:11 | XRay Report ---
SINGLE VIEW CHEST CLINICAL HISTORY: Left pleural effusion. FINDINGS: An AP, portable, upright chest radiograph is compared to study dated 11/23/2022 and correlate d with chest CT dated 11/22/2022. The examination is degraded by portable technique and patient rotatio n. The heart is enlarged noting atherosclerotic calcification of the thoracic aorta. There is pulmon gopi vascular congestion. Emphysematous change is noted. There are left larger than right pleural effu sions with dependent consolidation. There is increasing patchy airspace consolidation throughout both lungs. No pneumothorax is seen. The skeletal structures are osteopenic. There are chronic/healed rig ht-sided rib fractures. IMPRESSION: 1. Cardiomegaly and emphysema with evidence of congestive failure. 2. There is increasing multifocal airspace consolidation throughout both lungs. This could represent worsening pulmonary edema and/or multifocal pneumonia. Clinical correlation will be required and radi ographic follow-up to resolution is recommended. 3. Left larger than right pleural effusions with dependent consolidation. ACT 112: Negative or not required by law. Electronically signed by: William Ledesma M.D. 11/24/2022 8:10 AM
[2022-11-24] MEDS: FLUTICASONE PROPIONATE NA SPR 16 GM BTL SCH (09:29)
[2022-11-24] MEDS: SERTRALINE HCL 50 MG TABLET PO SCH (09:30)
[2022-11-24] MEDS: CEROVITE ADV FORMULA TAB PO SCH (09:30)
[2022-11-24] MEDS: CHOLECALCIFEROL 1,000 UNITS 25 MCG TAB PO SCH (09:30)
[2022-11-24] MEDS: FUROSEMIDE INJ 20 MG/2 ML VIAL IV SCH (09:30)
[2022-11-24] MEDS: LEVOBUNOLOL HCL 0.5% OP SOLN 5 ML BTL OPB SCH ×2 (09:30→20:01)
[2022-11-24] MEDS: guaiFENesin 600 MG TABCR PO SCH ×2 (09:30→20:00)
[2022-11-24] MEDS: PSYLLIUM or GUAR GUM FIBER POWDER PACKET PO SCH (09:31)
--- NOTE | 2022-11-24 09:57 | Hospitalist Progress Note ---
Date of Service November 24, 2022 Assessment & Plan (1) Pleural effusion: (2) Hyponatremia: (3) Chronic diastolic heart failure: (4) Multifocal pneumonia: Plan: 77-year-old male with past medical significant for hyperlipidemia, COPD, pleural effusion, dyspnea on exertion, recurrent pneumonia, chronic diastolic CHF, primary open-angle glaucoma both eyes, presents with fevers going on for last week with shortness of breath on exertion, weakness, fatigue and cough bringing a slight of whitish phlegm .Was prescribed doxycycline as outpatient took for last 3 days but not improving so came to the ER. Reports recurrent pneumonia Has had thoracentesis in the past History of pleural effusions. Etiology unclear as per pulmonary plan for bronchoscopy if pleural effusions persist CTA Chest showed bilateral pleural effusion (Left >Right), widespread consolida tive opacities, centrilobular emphysema, extensive calcifications in LV myocardium. On presentation, labs were notable for BNP 1239, Mg 1.5, Na 128, Hb 10.7 He has multifocal pneumonia Bilateral pleural effusion. Per outpt pulm note, it seems effusion has been persistent To minimize IVF volumge given,IV zosyn changed to cefepime and doxycycline MRSA is negative. Vancomycin discontinued With elevated BNP, myocardial calcification noted on CTA chest, EKG showing TWI in aVL, II, lateral leads; Cardiomyopathy is likely contributing to pleural effusion Outpatient TTE from 11/2021 noted EF 60-64%, mild conc LV, large Lt pleural effusion and possible ascites with cardiac displacement. No significant valvular pathology TTE today noted diffuse myocardial calcification affecting interventricular s eptum and basal segments, pattern not typical for that expected with scar related to ischemic cardiomyopathy. Also hypokinesis of basal inferoseptum, EF 55-60%, severe mitral calcification, mild dil LA, mild pulm HTN PASP 40, Grade III diastolic dysfunction Cardiology evaluation appreciated Extensive myocardial calcification may be due to previous myocardial infarction or late sequela from myocarditis with some restrictive physiology Chronic diastolic heart failure Continue IV lasix for now Thoracentesis (left) done by Pulm on 11/23/22 with 1500cc removed Fluid analysis is transudative Follow up fluid cultures and other outstanding labs Hypotonic hyponatremia Likely from vol overload Serum osm 270 Uosm 470, Vanna 81 On IV lasix Nephro on board Replete hypomagnesemia Hyperlipidemia on statin DVT prophylaxis Lovenox Full code I spent a total of 50 minutes coordinating, documenting and providing care for this patient excluding time spent in performance of separately billed services Admission and Anticipated Discharge Date Admission Date: November 22, 2022 Subjective Patient seen and examined Reports cough and SOB improved since after thoracentesis Denied any chest pain, nausea, vomiting, abd pain, diarrhea, constipation, dysuria, freq, urgency No fevers Physical Exam Constitutional: + well hydrated; no acute distress Eyes: PERRL, conjunctivae normal, anicteric sclerae ENMT: external ear and nose normal, oropharynx normal Respiratory: normal respiratory effort; no respiratory distress Diminished breath sounds lung bases +crackles Cardiovascular: Rate/Rhythm: regular rate and regular rhythm S1 S2 Gastrointestinal (Abdomen): normal bowel sounds, soft, nontender, no hepatosplenomegaly Musculoskeletal: No pedal edema Neurologic: PERRL, EOMI, accommodation nl, no face palsy, no dysarthria Psychiatric: A+Ox3, euthymic affect Results & Data Results & Data Vital Signs (Past 12 Hours) Vital Signs Temp Pulse Pulse Resp BP Pulse Ox O2 Del Method 11/24/22 07:46 36.9 C 91 H 16 113/71 95 Nasal Cannula 11/24/22 06:53 95 H 11/24/22 06:46 91 H 16 97 Nasal Cannula 11/24/22 03:24 36.7 C 93 H 18 105/66 93 Nasal Cannula 11/23/22 23:40 37.2 C 93 H 18 110/68 91 Room Air 11/23/22 23:40 93 H 11/23/22 22:02 Nasal Cannula O2 Flow Rate 11/24/22 07:46 2 11/24/22 06:53 11/24/22 06:46 2 11/24/22 03:24 2 11/23/22 23:40 11/23/22 23:40 11/23/22 22:02 2 Laboratory Results Abnormal lab results 11/23/22 11/23/22 11/23/22 Range/Units 07:52 15:39 Unknown RBC (4.70-6.10) M/uL Hgb (14.0-18.0) g/dl Hct (42.0-52.0) % Sodium (136-145) mmol/L Chloride (98-107) mmol/L Glucose (70-99(Fasting)) mg/dl Osmolality 270 L (280-300) mOsm/kg Magnesium (1.7-2.4) mg/dl Urine Osmolality 407 L (500-800) mOsm/kg Pleural pH 7.48 H (7.3-7.4) Random Vancomycin (10-20) mcg/ml 11/24/22 11/24/22 11/24/22 Range/Units 05:54 05:54 05:54 RBC 3.00 L (4.70-6.10) M/uL Hgb 9.8 L (14.0-18.0) g/dl Hct 28.1 L (42.0-52.0) % Sodium 129 L (136-145) mmol/L Chloride 92 L (98-107) mmol/L Glucose 112 H (70-99(Fasting)) mg/dl Osmolality (280-300) mOsm/kg Magnesium 1.6 L (1.7-2.4) mg/dl Urine Osmolality (500-800) mOsm/kg Pleural pH (7.3-7.4) Random Vancomycin 9.7 L (10-20) mcg/ml
--- NOTE | 2022-11-24 10:35 | Nephrology Consultation ---
Date of Consultation November 24, 2022 Assessment & Plan (1) Hyponatremia: presenting sodium of 128 up to 129 today in pt w/ no prior hx of OP hyponatremia and no other admissions to hospital. most likely multifactorial >> already volume overloaded w/ effusions and then also note this issue has emerged since he started sertraline in late August goal sNa for tomorrow is no more than 134 -defer to primary service whether to continue or to wean sertraline -daily bmp -agree w/ lasix 20mg IV daily and with FR 1.5L -agree w/ plans to consolidate volume as much as possible of abtc and IV meds >added K 10 mEq bid (2) Calcification and ossification of muscle: specifically of myocardium but also mitral annulus/valve > ? etiology; ?myocarditis, ? sarcoid >ordered tests of calcium metabolism to start -further as per cardiology, pulmonary, primary service History of Present Illness Reason for Consultation: hyponatremia Requesting Physician: Dr Burch Attending Physician: Irina Burch MD History of Present Illness 77 y/o M whom I'm asked to see for hyponatremia was admitted yesterday w/ recurrent multifocal PNA w/ large L>R pleural effusions and HFpEF w/ likely grade 3 diastolic dysfunction. He underwent a L 1.5L thoracentesis yesterday. PMH includes COPD, BL pleural effusions, chronic HFpEF, recurrent PNA, suspected KELLY, HL. Recently started anti depressant in August and dose doubled 11/19. Follows w/ G pulm as OP: Had 1.5L L thoracentesis in early August at [facility] w/ negative cytology and exudative profile. on TTE one year back had extensive myocardial calcifications; TTE today also w/ extensive calcification noted throughout the left ventricular myocardium including mitral annular calcification as well as calcification of the interventricular septum. He has had a marked declines in his functional status/capacity past year and has lost 13% of his TBW in the past 12 mos based on [facility] clinic VS. one year ago he could walk through the mall w/o stopping to rest. Today he feels he has to look at most any activity "like a huge mountain" to be overcome. Presenting sodium 128; up to 129 today. No hx of prior OP hyponatremia based on review of [facility]. he is currently receiving lasix 20 mg IV daily (on 20 mg po as OP). Also on 1.5L FR. Started on cefepime, vanco. Further w/u planned given constellation of wt loss fatigue, recurrent PNA, pleural effusions, atypical calcifications on TTE. Pulm and cards are following pt. Raquel at bedside today. ROS significant for 36 lb wt loss past 2 years, stuttering temperature elevations > to 100.5, 101; also w/ profound lack of energy and poor appetite, markedly worse functional status and dyspnea on exertion. no new/worrisome voiding sx apart from stable chronic frequency. Cough x 1 month with white phlegm. does endorse constipation (lat BM 3-4 days back). no n/v, no abd pain. Allergies Allergy/AdvReac Type Severity Reaction Status Date / Time No Known Allergies Allergy Verified 11/22/22 18:33 Home Medications Medication Instructions Recorded Confirmed Type albuterol sulfate 90 mcg/actuation 2 puff inhalation Q4H PRN 11/22/22 11/22/22 History aerosol inhaler COUGH/SHORTNESS OF BREATH/WHEEZING cholecalciferol (vitamin D3) 25 25 mcg PO DAILY 11/22/22 11/22/22 History mcg (1,000 unit) capsule (Vitamin D3) clobetasol 0.05 % topical cream 1 applic topical BID PRN Itching 11/22/22 11/22/22 History doxycycline hyclate 100 mg capsule 100 mg PO BID 11/22/22 11/22/22 History fluticasone propionate 50 1 spray intranasal DAILY 11/22/22 11/22/22 History mcg/actuation nasal spray,suspension furosemide 20 mg tablet (Lasix) 20 mg PO QAM 11/22/22 11/22/22 History guaifenesin 600 mg tablet, 600 mg PO Q12H 11/22/22 11/22/22 History extended release 12 hr ipratropium 0.5 mg-albuterol 3 mg 3 ml inhalation Q4H PRN Wheezing 11/22/22 11/22/22 History (2.5 mg base)/3 mL nebulization soln latanoprost 0.005 % eye drops 1 drp OPB PM 11/22/22 11/22/22 History levobunolol 0.5 % eye drops 1 drp OPB BID 11/22/22 11/22/22 History itjfaglvaaxa-idpghxzn-utzkrb 1 tab PO DAILY 11/22/22 11/22/22 History tablet (Multivitamin 50 Plus tablet) ondansetron HCl 4 mg tablet 4 mg PO Q8H PRN NAUSEA/VOMITING 11/22/22 11/22/22 History psyllium husk 0.4 gram capsule 0.4 g PO DAILY 11/22/22 11/22/22 History (Fiber (psyllium husk)) sertraline 50 mg tablet 50 mg PO DAILY 11/22/22 11/22/22 History sildenafil 100 mg tablet 100 mg PO DAILY PRN Sexual Activity 11/22/22 11/22/22 History simvastatin 40 mg tablet 40 mg PO HS 11/22/22 11/22/22 History triamcinolone acetonide 0.1 % 1 applic topical DAILY PRN Itching 11/22/22 11/22/22 History topical cream Patient History Medical History (Updated 11/24/22 @ 17:47 by Porsche Lerma MD, PhD) Anxiety and depression COPD (chronic obstructive pulmonary disease) History of tobacco abuse 43 pk yr hx; stopped 2007 Hyperlipidemia Pleural effusion chronic, recurrent since at least 2019; s/p multiple taps in 2022 transudative Recurrent pneumonia Weight loss 22 lb 10/2021 - 10/2022 based on [facility] clinic VS; 13% of TBW; weighed 180 lb Sept 2020 [facility] Surgical History (Updated 11/24/22 @ 17:09 by Porsche Lerma MD, PhD) History of thoracentesis x 3 at [facility] x 1 [facility] 08/2022 Family History (Updated 11/24/22 @ 17:10 by Porsche Lerma MD, PhD) Sister Cancer Diabetes Social History Smoking Status: Former smoker Tobacco Type: Cigarettes Hx Alcohol Use: Yes Alcohol type: beer Hx Substance Use: No Preferred Language: Serbian Communication Ability: 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 Current Living Situation: Spouse Feels Safe at Home: Yes Assistive Devices: Denture - Upper, Denture - Lower, Glasses and Hearing Aid - Bilateral Review of Systems Review of Systems: All systems reviewed & are unremarkable except as noted in HPI & below Physical Exam Constitutional: well developed, + thin, + frail appearing and cooperative; no acute distress Eyes: EOM intact bilaterally ENMT: Ears: no external ear abnormality Nose: no external nose abnormality Mouth: + dry oral mucous membranes Neck: no nuchal rigidity Respiratory: normal respiratory effort Auscultation: + diminished lung sounds (bibasilar) and + crackles (1/[address] up posterior lopez) Cardiovascular: RRR, no murmur, no edema Gastrointestinal (Abdomen): Inspection/Auscultation: normal bowel sounds Percussion/Palpation: abdomen soft; abdomen nontender Musculoskeletal: Extremities: strength 5/5 throughout Skin: no rashes, warm and dry Neurologic: aiken, fluent speech, no tremor Psychiatric: Orientation: alert and oriented x 3 Insight: good insight Judgment: good judgement Results & Data Vital Signs (Past 12 Hours) Vital Signs Temp Pulse Pulse Resp BP Pulse Ox O2 Del Method 11/24/22 07:46 36.9 C 91 H 16 113/71 95 Nasal Cannula 11/24/22 06:53 95 H 11/24/22 06:46 91 H 16 97 Nasal Cannula 11/24/22 03:24 36.7 C 93 H 18 105/66 93 Nasal Cannula 11/23/22 23:40 37.2 C 93 H 18 110/68 91 Room Air 11/23/22 23:40 93 H O2 Flow Rate 11/24/22 07:46 2 11/24/22 06:53 11/24/22 06:46 2 11/24/22 03:24 2 11/23/22 23:40 11/23/22 23:40 Laboratory Results 11/24/22 05:54 11/24/22 05:54 uOsm 407 Seth 81 sOsm 270 Diagnostic Findings TTE today -technically limited -diffuse myocardial calcification of interventricular septum and basal segments as well as severe mitral annular calcification -EF 55 to 60% -likely grade [address] w/ IV con a/p 11/22 Chest findings are reported separately. Liver, gallbladder, spleen, pancreas, and adrenal glands are unremarkable. Kidneys enhance symmetrically, without hydronephrosis or significant perinephric stranding. There is extensive aortoiliac and mesenteric arterial atherosclerosis. There is no aortic aneurysm. 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 There is no adenopathy. There is no free air or significant ascites. Trace perisplenic ascites is noted. There is no bowel obstruction or inflammatory change. Appendix is not visualized with certainty. Urinary bladder and prostate are unremarkable There are age-related degenerative changes of the spine and hips. There are no acute osseous findings. IMPRESSION: 1. 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 Bowel shows no direct evidence of ischemic change. 2. Otherwise, no acute or significant intra-abdominal findings. CTA chest 11/22 Thyroid gland is unremarkable. There are mildly enlarged multicompartment mediastinal lymph nodes. No hilar or axillary lymphadenopathy is visualized. Thoracic aorta is calcified but normal in caliber. There is no dissection. There is adequate pulmonary artery opacification. Main pulmonary artery is normal in caliber. There is no evidence of acute pulmonary embolism. There is a moderate loculated left pleural effusion. Extensive round atelectasis is present in the lingula and right lower lobe. There is a small loculated right pleural effusion with round atelectasis in the right lower lobe. Additionally, there are patchy consolidative opacities throughout the lungs, located in the bilateral upper lobes, bilateral lower lobes, and right middle lobe. Some consolidations are subpleural in location, while others are peribronchovascular. There is a background of centrilobular emphysema. There is no pneumothorax. Heart size is normal. Coronary arteries are calcified. There is no significant RV strain. Extensive myocardial calcifications are present within the left ventricle. There is no acute fracture or dislocation. IMPRESSION: 1. No evidence of acute pulmonary embolism. 2. Widespread and patchy bilateral subpleural and peribronchovascular consolidative opacities concerning for multifocal pneumonia. Imaging follow-up after treatment completion recommended to exclude underlying malignancy. 3. Loculated pleural effusions, moderate on the left and mild on the right. Multifocal regions of round atelectasis bilaterally. 4. Centrilobular emphysema. 5. Mild mediastinal adenopathy, possibly reactive. 6. Extensive calcifications throughout the left ventricular myocardium, nonspecific, considerations include post-infarction changes and myocarditis. Clinical correlation is recommended. Consider further characterization with echocardiography. CT Chest Dec 2020 [facility] small pleural effusion R; mlld emphysema, extensive myocardial calcificatin ? 2/2 "past ID, HPTH, sequelae of myocarditis"
--- NOTE | 2022-11-24 11:31 | Pulmonology Progress Note ---
Date of Service November 24, 2022 Assessment & Plan (1) Chronic diastolic heart failure: (2) Pleural effusion: (3) SOB (shortness of breath): (4) Elevated troponin: (5) Multifocal pneumonia: Plan ASSESSMENT/PLAN: 1. Recurrent Pleural Effusions-Bilaterally -S/P previous thoracentesis -Bilateral Pleural Effusions -Consider: Heart Failure Malignancy parapneumonia Mycobacterium/Fungal -Thoracentesis has revealed that the effusion is transudative in nature. Awaiting cytology, bacterial, fungal, and AFB cultures on this effusion -Continue to follow with serial chest x-rays 2. Chronic HF -Grade III Diastolic Dysfunction -severely calcified mitral valve -Mild pulmonary HTN -LVEF=55-60% -diffuse myocardial calcification -Continues to receive Lasix 3. COPD/Centrilobular Emphysema -H/O Tobacco Abuse -supplemental oxygen weaning to 1 L/min nasal cannula -Duonebs PRN -expectorant, Mucinex 4. Multifocal Pneumonia -per Chest CT scan -sputum for culture -ATB'S: Cefepime and vancomycin -Sputum culture -Urinary strep and Legionella antigen 5. Sleep paralysis and cataplexy -Polysomnographic evaluation 6. Hyperlipidemia -Simvastatin 7. Hyponatremia -Most likely this is due to the use of his loop diuretics -Nephrology evaluation -Fluid restriction -Urine and serum osmolality Admission and Anticipated Discharge Date Admission Date: November 22, 2022 Subjective Patient feeling better today without any left anterior chest pain, oxygen has been weaned to 1 L/min and he is asking me if he would be able to use the bathroom in his room and even walk in the hallway. No productive cough today no fever or chills no acute problems overnight or this morning. I did explain to him that his pleural effusion was of a transudative nature and that we are still waiting the rest of the analysis of the pleural effusion from the laboratory. Review of Systems Review of Systems: All systems reviewed & are unremarkable except as noted in Subjective Constitutional: 40 pound weight loss in the last year. Respiratory: Increasing shortness of breath with productive cough. Physical Exam Constitutional: WD/WN, vitals as above Eyes: PERRL, conjunctivae normal, anicteric sclerae ENMT: external ear and nose normal, oropharynx normal Neck: trachea midline, no thyromegaly Respiratory: Better bilateral airflow with good inspiratory and expiratory effort. Chest x- ray today shows increased airspace consolidation to the left lower lobe which could represent increased effusion or infiltrative process. Still BS with some some scattered crackles and rhonchi mostly to the bases bilaterally. Cardiovascular: RRR, no murmur, no edema Gastrointestinal (Abdomen): normal bowel sounds, soft, nontender, no h epatosplenomegaly Musculoskeletal: no cyanosis or clubbing, extremities motor strength 5/5 Skin: no rashes, warm and dry Neurologic: patellar DTR's 2+ bilat, sensation intact and PERRL, EOMI, accommodation nl, no face palsy, no dysarthria Psychiatric: A+Ox3, euthymic affect Results & Data Results & Data Vital Signs (Past 12 Hours) Vital Signs Temp Pulse Pulse Resp BP Pulse Ox O2 Del Method 11/24/22 09:30 Nasal Cannula 11/24/22 07:46 36.9 C 91 H 16 113/71 95 Nasal Cannula 11/24/22 06:53 95 H 11/24/22 06:46 91 H 16 97 Nasal Cannula 11/24/22 03:24 36.7 C 93 H 18 105/66 93 Nasal Cannula 11/23/22 23:40 37.2 C 93 H 18 110/68 91 Room Air 11/23/22 23:40 93 H O2 Flow Rate 11/24/22 09:30 1 11/24/22 07:46 2 11/24/22 06:53 11/24/22 06:46 2 11/24/22 03:24 2 11/23/22 23:40 11/23/22 23:40 Laboratory Results Laboratory Results WBC 9.50 K/ul (4.8-10.8) 11/24/22 05:54 RBC 3.00 M/uL (4.70-6.10) L 11/24/22 05:54 Hgb 9.8 g/dl (14.0-18.0) L 11/24/22 05:54 Hct 28.1 % (42.0-52.0) L 11/24/22 05:54 MCV 93.7 fL (80.0-100.0) 11/24/22 05:54 MCH 32.7 pg (25.0-34.0) 11/24/22 05:54 MCHC 34.9 g/dL (32.0-36.0) 11/24/22 05:54 RDW Std Deviation 46.2 fL (36.4-46.3) 11/24/22 05:54 RDW Coeff of Lizeth 13.4 % (11.5-14.5) 11/24/22 05:54 Plt Count 315 K/uL (130-400) 11/24/22 05:54 MPV 9.6 fL (9.4-12.4) 11/24/22 05:54 Immature Gran % (Auto) 0.3 % 11/23/22 05:11 Neut % (Auto) 82.2 % 11/23/22 05:11 Lymph % (Auto) 8.8 % 11/23/22 05:11 [place] % (Auto) 8.0 % 11/23/22 05:11 Eos % (Auto) 0.4 % 11/23/22 05:11 Baso % (Auto) 0.3 % 11/23/22 05:11 Neut # (Auto) 5.79 K/uL (1.40-6.50) 11/23/22 05:11 Lymph # (Auto) 0.62 K/uL (1.20-3.40) L 11/23/22 05:11 [place] # (Auto) 0.56 K/uL (0.11-0.59) 11/23/22 05:11 Eos # (Auto) 0.03 K/uL (0.00-0.50) 11/23/22 05:11 Baso # (Auto) 0.02 K/uL (0.00-0.20) 11/23/22 05:11 Immature Gran # (Auto) 0.02 K/uL (0.01-0.20) 11/23/22 05:11 PT 12.4 Seconds (9.0-12.0) H 11/22/22 17:34 INR 1.1 (0.9-1.1) 11/22/22 17:34 Sodium 129 mmol/L (136-145) L 11/24/22 05:54 Potassium 4.0 mmol/L (3.5-5.1) 11/24/22 05:54 Chloride 92 mmol/L (98-107) L 11/24/22 05:54 Carbon Dioxide 32 mmol/L (21-32) 11/24/22 05:54 Anion Gap 5 (3-11) 11/24/22 05:54 BUN 10 mg/dl (6-23) 11/24/22 05:54 Creatinine 0.62 mg/dl (0.6-1.4) 11/24/22 05:54 Est Cr Clr Drug Dosing 89.3 ml/min 11/24/22 05:54 Est GFR ( Amer) 110.1 ml/min 11/24/22 05:54 Est GFR (Non-Af Amer) 95.0 ml/min 11/24/22 05:54 BUN/Creatinine Ratio 16.1 (10-20) 11/24/22 05:54 Glucose 112 mg/dl (70-99(Fasting)) H 11/24/22 05:54 Osmolality 270 mOsm/kg (280-300) L 11/23/22 07:52 Calcium 8.8 mg/dl (8.6-10.3) 11/24/22 05:54 Phosphorus 3.3 mg/dl (2.5-4.9) 11/24/22 05:54 Magnesium 1.6 mg/dl (1.7-2.4) L 11/24/22 05:54 Total Bilirubin 0.5 mg/dl (0.2-1.0) 11/22/22 17:34 AST 41 U/L (13-39) H 11/22/22 17:34 ALT 34 U/L (7-52) 11/22/22 17:34 Alkaline Phosphatase 153 U/L (34-104) H 11/22/22 17:34 Lactate Dehydrogenase 155 U/L (86-244) 11/23/22 11:04 Troponin I High Sens 22.8 pg/ml (0-20) H 11/23/22 11:04 B-Natriuretic Peptide 1239 pg/ml (0-100) H 11/22/22 17:34 Total Protein 6.6 gm/dl (6.0-8.3) 11/23/22 11:04 Albumin 3.5 gm/dl (3.4-5.0) 11/22/22 17:34 Globulin 3.1 gm/dl (2.5-4.0) 11/22/22 17:34 Albumin/Globulin Ratio 1.1 (0.9-2) 11/22/22 17:34 Procalcitonin 0.11 ng/ml (0-0.5) 11/23/22 07:52 Urine Color Yellow 11/22/22 20:20 Urine Appearance Clear (Clear) 11/22/22 20:20 Urine pH 6.5 (4.5-7.5) 11/22/22 20:20 Ur Specific [place] > 1.045 (1.000-1.030) H 11/22/22 20:20 Urine Protein Trace (Negative) H 11/22/22 20:20 Urine Glucose (UA) Negative (Negative) 11/22/22 20:20 Urine Ketones Negative (Negative) 11/22/22 20:20 Urine Blood Negative (Negative) 11/22/22 20:20 Urine Nitrite Negative (Negative) 11/22/22 20:20 Urine Bilirubin Negative (Negative) 11/22/22 20:20 Urine Urobilinogen Negative (Negative) 11/22/22 20:20 Ur Leukocyte Esterase Negative (Negative) 11/22/22 20:20 Urine WBC (Auto) 1-5 /hpf (0-5) 11/22/22 20:20 Urine RBC (Auto) 0-4 /hpf (0-4) 11/22/22 20:20 U Hyaline Cast (Auto) 0 /lpf (0-5) 11/22/22 20:20 U Epithel Cells (Auto) 0-5 /lpf (0-5) 11/22/22 20:20 Urine Bacteria (Auto) Negative (Negative) 11/22/22 20:20 Urine Osmolality 407 mOsm/kg (500-800) L 11/23/22 15:39 Ur Random Sodium 81 mmol/L 11/23/22 15:39 Fluid Neutrophils % 5 % 11/23/22 Unknown Fluid Lymphocytes % 82 % 11/23/22 Unknown Fluid Meso/Macro/[place] % 13 % 11/23/22 Unknown Fluid Comment 11/23/22 Unknown Pleural Fluid Source Left Lung 11/23/22 Unknown Pleural Color Raquel 11/23/22 Unknown Pleural Appearance Hazy 11/23/22 Unknown Pleural pH 7.48 (7.3-7.4) H 11/23/22 Unknown Pleural WBC (Auto) 335 /uL 11/23/22 Unknown Pleural RBC (Auto) 67685 /uL 11/23/22 Unknown Pleural Total Protein < 3.0 gm/dl 11/23/22 Unknown Pleural LDH 81 U/L 11/23/22 Unknown Pleural Glucose 105 mg/dl 11/23/22 Unknown Pleural Amylase 23 U/L 11/23/22 Unknown Nasal Screen MRSA (PCR) Negative (Negative) 11/23/22 11:20 Random Vancomycin 9.7 mcg/ml (10-20) L 11/24/22 05:54 Adenovirus (PCR) Not Detected (NotDetected) 11/22/22 Unknown B. pertussis DNA (PCR) Not Detected (NotDetected) 11/22/22 Unknown B.parapertussis DNA PCR Not Detected (NotDetected) 11/22/22 Unknown C. pneumoniae DNA (PCR) Not Detected (NotDetected) 11/22/22 Unknown Coronavirus OC43 (PCR) Not Detected (NotDetected) 11/22/22 Unknown Coronavirus HKU1 (PCR) Not Detected (NotDetected) 11/22/22 Unknown Coronavirus 229E (PCR) Not Detected (NotDetected) 11/22/22 Unknown SARS-CoV-2 (PCR) Not Detected (NotDetected) 11/22/22 Unknown Coronavirus NL63 (PCR) Not Detected (NotDetected) 11/22/22 Unknown Human Metapneumovir PCR Not Detected (NotDetected) 11/22/22 Unknown Influenza Type A (PCR) Not Detected (NotDetected) 11/22/22 Unknown Influenza Type B (PCR) Not Detected (NotDetected) 11/22/22 Unknown M. pneumoniae (PCR) Not Detected (NotDetected) 11/22/22 Unknown Parainfluenza 1 (PCR) Not Detected (NotDetected) 11/22/22 Unknown Parainfluenza 2 (PCR) Not Detected (NotDetected) 11/22/22 Unknown Parainfluenza 3 (PCR) Not Detected (NotDetected) 11/22/22 Unknown Parainfluenza 4 (PCR) Not Detected (NotDetected) 11/22/22 Unknown RSV (PCR) Not Detected (NotDetected) 11/22/22 Unknown Entero/Rhino (PCR) Not Detected (NotDetected) 11/22/22 Unknown Impressions Abdomen/Pelvis CT 11/22/22 17:21 Exam(s): CT ABDOMEN + PELVIS With Contrast IV Amt: 117ml optiray 350 EXAM: CT Abdomen and Pelvis With Intravenous Contrast CLINICAL HISTORY: Reason for exam: 40 wt loss, SOB, effusions, decreased appetite. TECHNIQUE: Axial computed tomography images of the abdomen and pelvis with intravenous contrast. CTDI is 37.01 mGy and DLP is 1030.98 mGy-cm. Automated exposure control was utilized for the study. A dose lowering technique was utilized adhering to the principles of ALARA. CONTRAST: Patient received 117ml optiray 350 of IV contrast COMPARISON: No relevant prior studies available. FINDINGS: Chest findings are reported separately. Liver, gallbladder, spleen, pancreas, and adrenal glands are unremarkable. Kidneys enhance symmetrically, without hydronephrosis or significant perinephric stranding. There is extensive aortoiliac and mesenteric arterial atherosclerosis. There is no aortic aneurysm. 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 There is no adenopathy. There is no free air or significant ascites. Trace perisplenic ascites is noted. There is no bowel obstruction or inflammatory change. Appendix is not visualized with certainty. Urinary bladder and prostate are unremarkable. There are age-related degenerative changes of the spine and hips. There are no acute osseous findings. IMPRESSION: 1. 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 Bowel shows no direct evidence of ischemic change. 2. Otherwise, no acute or significant intra-abdominal findings. 3. Please refer to CT chest of the same date, reported separately. Electronically signed by: Jero Leong M.D. 11/22/22 19:20 PM Chest CTA 11/22/22 17:21 Exam(s): CTA CHEST IV Amt: 117ml optiray 350 EXAM: CT Angiography Chest With Intravenous Contrast CLINICAL HISTORY: Reason for exam: SOB, pleural effusion, ? mass, PE. TECHNIQUE: Axial computed tomographic angiography images of the chest with intravenous contrast. CTDI is 37.01 mGy and DLP is 1030.98 mGy-cm. Automated exposure control was utilized for the study. A dose lowering technique was utilized adhering to the principles of ALARA. MIP reconstructed images were created and reviewed. COMPARISON: No relevant prior studies available. FINDINGS: Thyroid gland is unremarkable. There are mildly enlarged multicompartment mediastinal lymph nodes. No hilar or axillary lymphadenopathy is visualized. Thoracic aorta is calcified but normal in caliber. There is no dissection. There is adequate pulmonary artery opacification. Main pulmonary artery is normal in caliber. There is no evidence of acute pulmonary embolism. There is a moderate loculated left pleural effusion. Extensive round atelectasis is present in the lingula and right lower lobe. There is a small loculated right pleural effusion with round atelectasis in the right lower lobe. Additionally, there are patchy consolidative opacities throughout the lungs, located in the bilateral upper lobes, bilateral lower lobes, and right middle lobe. Some consolidations are subpleural in location, while others are peribronchovascular. There is a background of centrilobular emphysema. There is no pneumothorax. Heart size is normal. Coronary arteries are calcified. There is no significant RV strain. Extensive myocardial calcifications are present within the left ventricle. There is no acute fracture or dislocation. IMPRESSION: 1. No evidence of acute pulmonary embolism. 2. Widespread and patchy bilateral subpleural and peribronchovascular consolidative opacities concerning for multifocal pneumonia. Imaging follow-up after treatment completion recommended to exclude underlying malignancy. 3. Loculated pleural effusions, moderate on the left and mild on the right. Multifocal regions of round atelectasis bilaterally. 4. Centrilobular emphysema. 5. Mild mediastinal adenopathy, possibly reactive. 6. Extensive calcifications throughout the left ventricular myocardium, nonspecific, considerations include post-infarction changes and myocarditis. Clinical correlation is recommended. Consider further characterization with echocardiography. Electronically signed by: Jero Leong M.D. 11/22/22 19:15 PM Chest X-Ray 11/24/22 05:00 SINGLE VIEW CHEST CLINICAL HISTORY: Left pleural effusion. FINDINGS: An AP, portable, upright chest radiograph is compared to study dated 11/23/2022 and correlated with chest CT dated 11/22/2022. The examination is degraded by portable technique and patient rotation. The heart is enlarged noting atherosclerotic calcification of the thoracic aorta. There is pulmonary vascular congestion. Emphysematous change is noted. There are left larger than right pleural effusions with dependent consolidation. There is increasing patchy airspace consolidation throughout both lungs. No pneumothorax is seen. The skeletal structures are osteopenic. There are chronic/healed right-sided rib fractures. IMPRESSION: 1. Cardiomegaly and emphysema with evidence of congestive failure. 2. There is increasing multifocal airspace consolidation throughout both lungs. This could represent worsening pulmonary edema and/or multifocal pneumonia. Clinical correlation will be required and radiographic follow-up to resolution is recommended. 3. Left larger than right pleural effusions with dependent consolidation. ACT 112: Negative or not required by law. Electronically signed by: William Ledesma M.D. 11/24/2022 8:10 AM Medications Administered Home Medications Medication Instructions Recorded Confirmed Last Taken albuterol sulfate 90 mcg/actuation 2 puff inhalation Q4H PRN 11/22/22 11/22/22 Unknown aerosol inhaler COUGH/SHORTNESS OF BREATH/WHEEZING cholecalciferol (vitamin D3) 25 25 mcg PO DAILY 11/22/22 11/22/22 11/22/22 mcg (1,000 unit) capsule (Vitamin D3) clobetasol 0.05 % topical cream 1 applic topical BID PRN Itching 11/22/22 11/22/22 Unknown doxycycline hyclate 100 mg capsule 100 mg PO BID 11/22/22 11/22/22 11/22/22 08:00 fluticasone propionate 50 1 spray intranasal DAILY 11/22/22 11/22/22 11/22/22 mcg/actuation nasal spray,suspension furosemide 20 mg tablet (Lasix) 20 mg PO QAM 11/22/22 11/22/22 11/22/22 guaifenesin 600 mg tablet, 600 mg PO Q12H 11/22/22 11/22/22 11/22/22 08:00 extended release 12 hr ipratropium 0.5 mg-albuterol 3 mg 3 ml inhalation Q4H PRN Wheezing 11/22/22 11/22/22 Unknown (2.5 mg base)/3 mL nebulization soln latanoprost 0.005 % eye drops 1 drp OPB PM 11/22/22 11/22/22 11/21/22 levobunolol 0.5 % eye drops 1 drp OPB BID 11/22/22 11/22/22 11/22/22 08:00 [id number]-[id number] 1 tab PO DAILY 11/22/22 11/22/22 11/22/22 tablet (Multivitamin 50 Plus tablet) ondansetron HCl 4 mg tablet 4 mg PO Q8H PRN NAUSEA/VOMITING 11/22/22 11/22/22 Unknown psyllium husk 0.4 gram capsule 0.4 g PO DAILY 11/22/22 11/22/22 11/22/22 (Fiber (psyllium husk)) sertraline 50 mg tablet 50 mg PO DAILY 11/22/22 11/22/22 11/22/22 sildenafil 100 mg tablet 100 mg PO DAILY PRN Sexual Activity 11/22/22 11/22/22 Unknown simvastatin 40 mg tablet 40 mg PO HS 11/22/22 11/22/22 11/21/22 triamcinolone acetonide 0.1 % 1 applic topical DAILY PRN Itching 11/22/22 11/22/22 Unknown topical cream Active Medications Generic Name Dose Route Start Last Admin Trade Name Freq PRN Reason Stop Dose Admin Albuterol 3 ml 11/22/22 23:58 11/24/22 06:46 Albut/Ipratrop 3mg/0.5mg Neb 3 Ml Vial NEB 12/22/22 23:57 3 ml TIDR SATURNINO Administration Protocol Enoxaparin Sodium 40 mg 11/22/22 23:58 11/23/22 21:08 Enoxaparin Inj 40 Mg/0.4 Ml Syr SQ 12/22/22 23:57 Not Given HS SATURNINO Fluticasone Propionate 1 sprays 11/23/22 09:00 11/24/22 09:29 Fluticasone Propionate Na Spr 16 Gm Btl NA 12/23/22 08:59 1 sprays DAILY SATURNINO Administration Furosemide 20 mg 11/23/22 09:00 11/23/22 10:28 Furosemide 20 Mg Tab PO 12/23/22 08:59 20 mg QAM SATURNINO Administration Furosemide 20 mg 11/23/22 14:30 11/24/22 09:30 Furosemide Inj 20 Mg/2 Ml Vial IV 12/23/22 14:29 20 mg DAILY SATURNINO Administration Guaifenesin 600 mg 11/22/22 23:58 11/24/22 09:30 Guaifenesin 600 Mg Tabcr PO 12/22/22 23:57 600 mg Q12 SATURNINO Administration Piperacillin Sod/Tazobactam 120 mls @ 30 mls/hr 11/23/22 04:00 11/24/22 08:42 Sod 4.5 gm/ Dextrose IV 11/30/22 03:59 Infused Q8H SATURNINO Infusion Protocol Latanoprost 1 drops 11/22/22 23:58 11/23/22 20:32 Latanoprost 0.005% Op Soln 2.5 Ml Btl OPB 12/22/22 23:57 1 drops PM SATURNINO Administration Levobunolol HCl 1 drops 11/22/22 23:58 11/24/22 09:30 Levobunolol Hcl 0.5% Op Soln 5 Ml Btl OPB 12/22/22 23:57 1 drops BID SATURNINO Administration Multivitamins/Minerals 1 tab 11/23/22 09:00 11/24/22 09:30 Cerovite Adv Formula Tab PO 12/23/22 08:59 1 tab DAILY SATURNINO Administration Psyllium Hydrophilic Mucilloid 1 pkt 11/23/22 09:00 11/24/22 09:31 Psyllium Or Guar Gum Fiber Powder Packet PO 12/23/22 08:59 1 pkt DAILY SATURNINO Administration Sertraline HCl 50 mg 11/23/22 09:00 11/24/22 09:30 Sertraline Hcl 50 Mg Tablet PO 12/23/22 08:59 50 mg DAILY SATURNINO Administration Simvastatin 40 mg 11/22/22 23:58 11/23/22 20:32 Simvastatin 40 Mg Tab PO 12/22/22 23:57 40 mg HS SATURNINO Administration Vitamin D 1,000 units 11/23/22 09:00 11/24/22 09:30 Cholecalciferol 1,000 Units 25 Mcg Tab PO 12/23/22 08:59 1,000 units DAILY SATURNINO Administration PG Care Time/CCT Total # of Minutes Spent Total Time Spent with Patient: Total time spent is greater than 50% in coordination of care (as documented) at patient's floor/unit and/or counseling patient: Coding Level of Care Code 01976 SUB INP/OBS CARE 2/35MIN Diagnoses Chronic diastolic heart failure I50.32 Pleural effusion J90 SOB (shortness of breath) R06.02 Elevated troponin R77.8 Multifocal pneumonia J18.9
--- NOTE | 2022-11-24 12:29 | Pharmacy Report ---
Pharmacy PK ABX Note - Date of Service November 24, 2022 - Assessment and Plan Assessment 11/24: * Pleural fluid cultures pending, nasal MRSA swab negative, continue on vancomycin/zosyn. Blood cultures negative * Vancomycin level this morning suggests attainment of AUC/GENTRY but lower end, will increase dosing frequency to target middle of range. 11/22: * Mr Matamoros is a 77 year old M receiving vancomycin/Zosyn for treatment of multifocal pna. * PMH is significant for COPD, CHF, recurrent pna (recent tx with PO doxy). * Blood cx pending. MRSA swab ordered but not yet collected. Plan Vancomycin * Loading dose: 1250 mg IV x 1 * Previous dose: 1000 mg IV every 12 hours * Adjust dose to 750 mg q8H * Regimen is predicted to achieve target AUC/GENTRY of 400-600 mg/L.hr * Will obtain a vanc level close to steady-state, or sooner if condition worsens. Cefepime 2gm IV x1 dose in ED, then Zosyn 4.5gm IV q8h Pharmacy will continue to follow and will adjust dose/frequency as necessary. Thank you. Pharmacy has transitioned to AUC monitoring for vancomycin. AUC/GENTRY is the preferred PK/PD target and is associated with decreased risk of nephrotoxicity compared to traditional trough targets.
[2022-11-24] MEDS ORDERED: MAGNESIUM SULFATE / D5W 1 GM/100 ML BAG IV ONE (12:57)
--- NOTE | 2022-11-24 15:05 | Cardiology Progress Note ---
Date of Service November 24, 2022 Assessment & Plan (1) Pleural effusion: (2) Multifocal pneumonia: (3) HFrEF (heart failure with reduced ejection fraction): Plan: -Echocardiogram was performed on 11/23 and again on 11/24. There is diffuse myocardial calcification affecting the interventricular septum and basal segments as well as severe mitral annular calcification. There is focal hypokinesis of the basal inferoseptum, however the ejection fraction is preserv ed at 55 to 60%. The mitral valve apparatus is suboptimally visualized due to the dense calcification and resultant acoustic shadowing, and the mitral valve leaflet excursion cannot be visualized. No mitral stenosis that is detected by Doppler velocities. Grade 3 diastolic dysfunction suggested. The images obtained at the time of the [facility], were reviewed. These images were very compromised due to the presence of a very large pleural effusion at that time. The ejection fraction was normal. Per review of his outpatient chart, similar findings are noted on CT of the chest performed at [facility] in 2019, CT of the chest performed 12/29/2020 within the [employer] system, and again on 11/22/2022 at [facility] with extensive myocardial calcification with pattern that could be compatible with previous myocardial infarction affecting the septal wall, but the appearance is somewhat atypical for myocardial infarction and other considerations including disorders of calcium metabolism or chronic sequela of myocarditis also consideration. Per available records, his calcium level has been normal. I personally question if this is late sequela from a myocarditis with some degree of restrictive physiology. Patient underwent thoracentesis of 1.5 L of pleural fluid on 11/23/2022, chest x-r ay however still abnormal, with noted evidence of what appears to be atelectasis, poor lung expansion. I discussed this case with Dr. Farah of pulmonary medicine yesterday by phone. Patient with underlying lung disease noted on CT with severe emphysema. His shortness of breath would appear to be chronic, progressive, multifactorial with severe underlying lung disease, recurrent pleural effusions perhaps related to diastolic dysfunction with past myocarditis and restrictive filling physiology, superimposed pneumonia. Would recommend altering his antibiotics as possible to allow for minimal IV fluid intake. Continue IV furosemide 20 mg IV daily for now. In the long-term, I do think we need to try to be as aggressive as possible with his diuretic therapy to attempt to prevent reaccumulation of the pleural fluid. Admission and Anticipated Discharge Date Admission Date: November 22, 2022 Subjective Patient seen in cardiology follow-up today. Notes feeling improved compared to when he initially presented to the emergency department, but not markedly impro rakesh. He does not feel a dramatic improvement status post thoracentesis of 1.5 L of left lung on 11/23/2022. Physical Exam Constitutional: + thin and + cachectic Respiratory: Auscultation: + diminished lung sounds (Decreased breath sounds throughout the base and mid left lung field, right ); no rales and no wheezes Cardiovascular: Rate/Rhythm: regular rhythm Heart Sounds: + murmur (1/6 murmur) Extremities: no edema Gastrointestinal (Abdomen): normal bowel sounds, soft, nontender, no hepatosplenomegaly Neurologic: PERRL, EOMI, accommodation nl, no face palsy, no dysarthria Results & Data Vital Signs (Past 12 Hours) Vital Signs Temp Pulse Pulse Resp BP BP Pulse Ox 11/24/22 14:13 88 18 90 11/24/22 13:11 87 L 11/24/22 13:04 36.7 C 83 17 100/66 92 11/24/22 09:30 11/24/22 07:46 36.9 C 91 H 16 113/71 95 11/24/22 06:53 95 H 11/24/22 06:46 91 H 16 97 11/24/22 03:24 36.7 C 93 H 18 105/66 93 O2 Del Method O2 Flow Rate 11/24/22 14:13 Room Air 11/24/22 13:11 Room Air 11/24/22 13:04 Room Air 11/24/22 09:30 Nasal Cannula 1 11/24/22 07:46 Nasal Cannula 2 11/24/22 06:53 11/24/22 06:46 Nasal Cannula 2 11/24/22 03:24 Nasal Cannula 2 Laboratory Results Cardiac Enzymes 11/23/22 Range/Units 11:04 Lactate Dehydrogenase 155 (86-244) U/L CBC 11/24/22 Range/Units 05:54 WBC 9.50 (4.8-10.8) K/ul RBC 3.00 L (4.70-6.10) M/uL Hgb 9.8 L (14.0-18.0) g/dl Hct 28.1 L (42.0-52.0) % Plt Count 315 (130-400) K/uL Comprehensive Metabolic Panel 11/23/22 11/24/22 Range/Units 11:04 05:54 Sodium 129 L (136-145) mmol/L Potassium 4.0 (3.5-5.1) mmol/L Chloride 92 L (98-107) mmol/L Carbon Dioxide 32 (21-32) mmol/L BUN 10 (6-23) mg/dl Creatinine 0.62 (0.6-1.4) mg/dl Glucose 112 H (70-99(Fasting)) mg/dl Calcium 8.8 (8.6-10.3) mg/dl Total Protein 6.6 (6.0-8.3) gm/dl Intake and Output 11/24/22 11/24/22 11/24/22 06:59 14:59 22:59 Intake Total 240 / 2575.833 390 / 390 Output Total 300 / 880 Balance -60 / 1695.833 390 / 390 Intake: IV 120 / 2095.833 390 / 390 Piperacillin/Tazobactam 4.5 gm 120 / 360 120 / 120 In Dextrose 5% 100 ml @ 30 mls/ hr IV Q8H SATURNINO Rx#:[id number] Vancomycin HCl 1,000 mg In 270 / 270 Sodium Chloride 0.9% 250 ml @ 200 mls/hr IV Q12H SATURNINO Rx#: [id number] Oral 120 / 480 Output: Urine 300 / 880 Other: Weight 64.3 kg Weight Measurement Method Standing Scale
[2022-11-24] MEDS ORDERED: VANCOMYCIN HCL 750 MG in SODIUM CHLORIDE 0.9% 250 ML IV SCH (16:00)
[2022-11-24] MEDS ORDERED: POTASSIUM CHLORIDE 10 MEQ TABCR PO SCH (18:00)
[2022-11-24] MEDS: POTASSIUM CHLORIDE 10 MEQ TABCR PO SCH (18:40)
[2022-11-24] MEDS: ENOXAPARIN INJ 40 MG/0.4 ML SYR SQ SCH (20:00)
[2022-11-24] MEDS: CEFEPIME 2,000 MG in SYRINGE 0 ML IV SCH (20:00)
[2022-11-24] MEDS: DOXYCYCLINE HYCLATE 100 MG CAP PO SCH (20:00)
[2022-11-24] MEDS: LATANOPROST 0.005% OP SOLN 2.5 ML BTL OPB SCH (20:01)
[2022-11-24] MEDS: SIMVASTATIN 40 MG TAB PO SCH (20:01)
[2022-11-25] MEDS: CEFEPIME 2,000 MG in SYRINGE 0 ML IV SCH (03:47)
[2022-11-25 06:38] LABS: Hematocrit (blood only) 30.1 % (42.0-52.0); Hemoglobin 10.4 g/dl (14.0-18.0); Mean Corpuscular Hemoglobin 32.4 pg (25.0-34.0); Mean Corpuscular Hgb Conc 34.6 g/dL (32.0-36.0); Mean Corpuscular Volume 93.8 fL (80.0-100.0); Mean Platelet Volume 9.9 fL (9.4-12.4); Platelet Count 407 K/uL (130-400); RDW Coefficient of Variation 13.2 % (11.5-14.5); Red Blood Count 3.21 M/uL (4.70-6.10); White Blood Count 12.02 K/ul (4.8-10.8)
[2022-11-25 07:06] LABS: BUN Creatinine Ratio 14.9 (10-20); Creatinine Clr Calc Pharmacy 82.3 ml/min; Est GFR (African American) 106.7 ml/min; Magnesium 1.7 mg/dl (1.7-2.4); Phosphorus 2.8 mg/dl (2.5-4.9); Potassium 3.9 mmol/L (3.5-5.1)
[2022-11-25] MEDS: ALBUT/IPRATROP 3MG/0.5MG NEB 3 ML VIAL NEB SCH ×3 (07:15→19:01)
--- NOTE | 2022-11-25 07:56 | XRay Report ---
XR chest 1V portable HISTORY: left pleural effusion COMPARISON: Chest 11/24/2022. FINDINGS: No pneumothorax. The cardiac silhouette remains mildly enlarged. Moderate left and small ri ght pleural effusions persist. Patchy bilateral airspace opacities most pronounced within the left mi dlung zone are also not significantly changed. IMPRESSION: No significant change in the patchy bilateral airspace opacities and bilateral pleural effusions. ACT 112: Negative or not required by law. Electronically signed by: Costa Rivera M.D. 11/25/2022 7:55 AM
[2022-11-25] MEDS: POTASSIUM CHLORIDE 10 MEQ TABCR PO SCH ×2 (08:24→20:15)
[2022-11-25] MEDS: CEROVITE ADV FORMULA TAB PO SCH (08:25)
[2022-11-25] MEDS: guaiFENesin 600 MG TABCR PO SCH ×2 (08:25→20:14)
[2022-11-25] MEDS: DOXYCYCLINE HYCLATE 100 MG CAP PO SCH (08:25)
[2022-11-25] MEDS: CHOLECALCIFEROL 1,000 UNITS 25 MCG TAB PO SCH (08:25)
[2022-11-25] MEDS: PSYLLIUM or GUAR GUM FIBER POWDER PACKET PO SCH (08:26)
[2022-11-25] MEDS: SERTRALINE HCL 50 MG TABLET PO SCH (08:26)
[2022-11-25] MEDS: LEVOBUNOLOL HCL 0.5% OP SOLN 5 ML BTL OPB SCH ×2 (08:26→20:15)
[2022-11-25] MEDS: FLUTICASONE PROPIONATE NA SPR 16 GM BTL SCH (08:27)
[2022-11-25] MEDS: FUROSEMIDE INJ 20 MG/2 ML VIAL IV SCH (08:28)
--- NOTE | 2022-11-25 10:37 | Hospitalist Progress Note ---
Date of Service November 25, 2022 Assessment & Plan (1) Pleural effusion: (2) Hyponatremia: (3) Chronic diastolic heart failure: (4) Multifocal pneumonia: Plan: 77-year-old male with past medical significant for hyperlipidemia, COPD, pleural effusion, dyspnea on exertion, recurrent pneumonia, chronic diastolic CHF, primary open-angle glaucoma both eyes, presents with fevers going on for last week with shortness of breath on exertion, weakness, fatigue and cough bringing a slight of whitish phlegm .Was prescribed doxycycline as outpatient took for last 3 days but not improving so came to the ER. Reports recurrent pneumonia Has had thoracentesis in the past History of pleural effusions. Etiology unclear as per pulmonary plan for bronchoscopy if pleural effusions persist CTA Chest showed bilateral pleural effusion (Left >Right), widespread consolida tive opacities, centrilobular emphysema, extensive calcifications in LV myocardium. On presentation, labs were notable for BNP 1239, Mg 1.5, Na 128, Hb 10.7 He has multifocal pneumonia Bilateral pleural effusion. Per outpt pulm note, it seems effusion has been persistent Continue cefepime and doxycycline With elevated BNP, myocardial calcification noted on CTA chest, EKG showing TWI in aVL, II, lateral leads; Cardiomyopathy is likely contributing to pleural effusion Outpatient TTE from 11/2021 noted EF 60-64%, mild conc LV, large Lt pleural effusion and possible ascites with cardiac displacement. No significant valvular pathology TTE today noted diffuse myocardial calcification affecting interventricular septum and basal segments, pattern not typical for that expected with scar related to ischemic cardiomyopathy. Also hypokinesis of basal inferoseptum, EF 55-60%, severe mitral calcification, mild dil LA, mild pulm HTN PASP 40, Grade III diastolic dysfunction Cardiology evaluation appreciated Extensive myocardial calcification may be due to previous myocardial infarction or late sequela from myocarditis with some restrictive physiology Chronic diastolic heart failure Currently on IV lasix 20mg daily Thoracentesis (left) done by Pulm on 11/23/22 with 1500cc removed Fluid analysis is transudative Fluid cultures negative so far Hypotonic hyponatremia Likely from vol overload Na was 128 on presentation Serum osm 270 Uosm 470, Vanna 81 Na is 130 today On IV lasix Nephro recs appreciated Continue fluid restriction 1.5L Hyperlipidemia on statin DVT prophylaxis Lovenox Full code I spent a total of 45 minutes coordinating, documenting and providing care for this patient excluding time spent in performance of separately billed services Admission and Anticipated Discharge Date Admission Date: November 22, 2022 Subjective Patient seen and examined Reports cough and SOB improving SOB is usually with activity Denied any chest pain, nausea, vomiting, abd pain, diarrhea, constipation, dysuria, freq, urgency No fevers Physical Exam Constitutional: + well hydrated; no acute distress Eyes: PERRL, conjunctivae normal, anicteric sclerae ENMT: external ear and nose normal, oropharynx normal Respiratory: normal respiratory effort; no respiratory distress Currently on room air Decreased breath sounds lung bases, +crackles Cardiovascular: Rate/Rhythm: regular rate and regular rhythm S1 S2 Gastrointestinal (Abdomen): normal bowel sounds, soft, nontender, no hepatosplenomegaly Musculoskeletal: No pedal edema Neurologic: PERRL, EOMI, accommodation nl, no face palsy, no dysarthria Psychiatric: A+Ox3, euthymic affect Results & Data Results & Data Vital Signs (Past 12 Hours) Vital Signs Temp Pulse Pulse Resp BP BP Pulse Ox 11/25/22 08:49 36.8 C 90 17 113/74 96 11/25/22 07:15 97 H 20 84 L 11/25/22 07:06 99 H 11/25/22 02:57 37.0 C 99 H 18 118/73 96 11/24/22 23:33 96 H 11/24/22 22:59 37.1 C 92 H 18 108/66 96 O2 Del Method O2 Flow Rate 11/25/22 08:49 Room Air 11/25/22 07:15 Room Air 11/25/22 07:06 11/25/22 02:57 Nasal Cannula 2 11/24/22 23:33 11/24/22 22:59 Nasal Cannula 2 Laboratory Results Abnormal lab results 11/25/22 11/25/22 Range/Units 05:36 05:36 WBC 12.02 H (4.8-10.8) K/ul RBC 3.21 L (4.70-6.10) M/uL Hgb 10.4 L (14.0-18.0) g/dl Hct 30.1 L (42.0-52.0) % Plt Count 407 H (130-400) K/uL Sodium 130 L (136-145) mmol/L Chloride 90 L (98-107) mmol/L Carbon Dioxide 34 H (21-32) mmol/L Glucose 117 H (70-99(Fasting)) mg/dl
--- NOTE | 2022-11-25 11:40 | Pulmonology Progress Note ---
Date of Service November 25, 2022 Assessment & Plan (1) Pleural effusion: (2) Abnormal CT scan of lung: (3) Bronchiectasis: Plan Impression: 77-year-old male with recurrent pleural effusions and multifocal patchy airspace opacities of unclear etiology. Has been treated for pneumonia however his procalcitonin is normal, he is afebrile, his white count is normal. He does have underlying anemia as well as myocardial ossification of unclear etiology. I think the patient has 2 separate issues with the pleural effusions likely related to his grade 3 diastolic dysfunction and the multifocal airspace opacity of unclear etiology. Unclear if the patient could have a constrictive or restrictive pericardial component contributing to his pleural effusions however his right atrial pressure on echocardiogram was normal. Atypical infections including nontuberculous mycobacteria would be on the differential as the patient does have some evidence of bronchiectasis as well. Cannot exclude other underlying inflammatory conditions such as sarcoidosis. Other atypical infections such as coccidiomycosis, cryptococcus, histoplasmosis, and blasto mycosis would all be in the differential as well. Recommendations: 1. Recommended the patient undergo fiberoptic bronchoscopy with bronchial velar lavage and transbronchial biopsies with potential EBUS/TBNA. He is agreeable to proceed. N.p.o. after midnight. We will try and schedule for tomorrow in the a.m.. 2. Patient does have an elevated bicarb. Unclear if this is contraction alkalosis given his diuretic dose. We will check a blood gas to ensure he is not hypercarbic at baseline. 3. Pleural effusions: These appear to be transudative and are likely related to the patient's grade 3 diastolic dysfunction. Blood pressure control and diuretics as tolerated recommended. He does not have significant peripheral edema. 4. Evaluation of the patient's baseline anemia per primary service. Additional recommendations will be based on findings from bronchoscopy. Above recommendations and plan were discussed with the patient as well as his at bedside. Questions were answered to the best my ability. They expr essed understanding and are in agreement with plan as outlined Admission and Anticipated Discharge Date Admission Date: November 22, 2022 Subjective Patient seen and examined. Discussed with patient and at bedside. EMR reviewed. 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 Patient continues to complain of shortness of breath. He did not feel much better after any of his thoracenteses in the past including the one performed during this hospitalization. He is coughing but reports it is better during this hospitalization. His cough was more wet sounding at home and has dried out somewhat while he has been here at the hospital. He is not reporting any chest pain or palpitations. He denies fevers chills or night sweats but is frustrated with lack of answers that he has been able to get so far. Review of Systems Review of Systems: All systems reviewed & are unremarkable except as noted in Subjective Physical Exam Constitutional: WD/WN, vitals as above Neck: trachea midline, no thyromegaly Respiratory: normal respiratory effort, lungs clear to auscultation Cardiovascular: RRR, no murmur, no edema Gastrointestinal (Abdomen): normal bowel sounds, soft, nontender, no hepatosplenomegaly Musculoskeletal: Extremities: extremities normal to inspection Skin: no rashes, warm and dry Neurologic: Nonfocal exam Lymphatic: no cervical lymphadenopathy Results & Data Results & Data Vital Signs (Past 12 Hours) Vital Signs Temp Pulse Pulse Resp BP BP Pulse Ox 11/25/22 08:49 36.8 C 90 17 113/74 96 11/25/22 07:15 97 H 20 84 L 11/25/22 07:06 99 H 11/25/22 02:57 37.0 C 99 H 18 118/73 96 O2 Del Method O2 Flow Rate 11/25/22 08:49 Room Air 11/25/22 07:15 Room Air 11/25/22 07:06 11/25/22 02:57 Nasal Cannula 2 Laboratory Results 11/25/22 05:36 11/25/22 05:36 Pleural fluid studies: Cell count 5% neutrophils, 82% lymphocytes, 13% mesothelial cells Pleural pH 7.48 Total protein less than 3 LDH 81 Glucose 105 Amylase 23 Cytology pending AFB stains negative, cultures pending Gram stain with rare PMNs, no organisms and cultures negative to date Procalcitonin on presentation 0.11 Diagnostic Findings CTA: 11/22/2022: Film independently reviewed EXAM: CT Angiography Chest With Intravenous Contrast CLINICAL HISTORY: Reason for exam: SOB, pleural effusion, ? mass, PE. TECHNIQUE: Axial computed tomographic angiography images of the chest with intravenous contrast. CTDI is 37.01 mGy and DLP is 1030.98 mGy-cm. Automated exposure control was utilized for the study. A dose lowering technique was utilized adhering to the principles of ALARA. MIP reconstructed images were created and reviewed. COMPARISON: No relevant prior studies available. FINDINGS: Thyroid gland is unremarkable. There are mildly enlarged multicompartment mediastinal lymph nodes. No hilar or axillary lymphadenopathy is visualized. Thoracic aorta is calcified but normal in caliber. There is no dissection. There is adequate pulmonary artery opacification. Main pulmonary artery is normal in caliber. There is no evidence of acute pulmonary embolism. There is a moderate loculated left pleural effusion. Extensive round atelectasis is present in the lingula and right lower lobe. There is a small loculated right pleural effusion with round atelectasis in the right lower lobe. Additionally, there are patchy consolidative opacities throughout the lungs, located in the bilateral upper lobes, bilateral lower lobes, and right middle lobe. Some consolidations are subpleural in location, while others are peribronchovascular. There is a background of centrilobular emphysema. There is no pneumothorax. Heart size is normal. Coronary arteries are calcified. There is no significant RV strain. Extensive myocardial calcifications are present within the left ventricle. There is no acute fracture or dislocation. IMPRESSION: 1. No evidence of acute pulmonary embolism. 2. Widespread and patchy bilateral subpleural and peribronchovascular consolidative opacities concerning for multifocal pneumonia. Imaging follow-up after treatment completion recommended to exclude underlying malignancy. 3. Loculated pleural effusions, moderate on the left and mild on the right. Multifocal regions of round atelectasis bilaterally. 4. Centrilobular emphysema. 5. Mild mediastinal adenopathy, possibly reactive. 6. Extensive calcifications throughout the left ventricular myocardium, nonspecific, considerations include post-infarction changes and myocarditis. Clinical correlation is recommended. Consider further characterization with echocardiography. PG Care Time/CCT Total # of Minutes Spent Total Time Spent with Patient: Total time spent is greater than 50% in coordination of care (as documented) at patient's floor/unit and/or counseling patient: Coding Level of Care Code 10709 SUB INP/OBS CARE 3/50MIN Diagnoses Pleural effusion J90 Abnormal CT scan of lung R91.8 Bronchiectasis J47.9
--- NOTE | 2022-11-25 12:04 | Cardiology Progress Note ---
Date of Service November 25, 2022 Assessment & Plan (1) Pleural effusion: (2) Multifocal pneumonia: (3) HFrEF (heart failure with reduced ejection fraction): Plan: -Echocardiogram was performed on 11/23 and again on 11/24. There is diffuse myocardial calcification affecting the interventricular septum and basal segments as well as severe mitral annular calcification. There is focal hypokinesis of the basal inferoseptum, however the ejection fraction is preserv ed at 55 to 60%. The mitral valve apparatus is suboptimally visualized due to the dense calcification and resultant acoustic shadowing, and the mitral valve leaflet excursion cannot be visualized. No mitral stenosis that is detected by Doppler velocities. Grade 3 diastolic dysfunction suggested. The images obtained at the time of the previous echocardiogram performed [facility] as an outpatient in November, were reviewed. These images were very compromised due to the presence of a very large pleural effusion at that time. The ejection fraction was normal. Per review of his outpatient chart, similar findings are noted on CT of the chest performed at [facility] in 2019, CT of the chest performed 12/29/2020 within the [employer] system, and again on 11/22/2022 at [facility] with extensive myocardial calcification with pattern that could be compatible with previous myocardial infarction affecting the septal wall, but the appearance is somewhat atypical for myocardial infarction and other considerations including disorders of calcium metabolism or chronic sequela of myocarditis also consideration. Per available records, his calcium level has been normal. I personally question if this is late sequela from a myocarditis with some degree of restrictive physiology. Patient underwent thoracentesis of 1.5 L of pleural fluid on 11/23/2022, chest x-r ay however still abnormal, with noted evidence of what appears to be atelectasis, poor lung expansion. I discussed this case with Dr. Farah of pulmonary medicine yesterday by phone. Patient with underlying lung disease noted on CT with severe emphysema. His shortness of breath would appear to be chronic, progressive, multifactorial with severe underlying lung disease, recurrent pleural effusions perhaps related to diastolic dysfunction with past myocarditis and restrictive filling physiology, superimposed pneumonia. Would recommend altering his antibiotics as possible to allow for minimal IV fluid intake. Plan 11/25/2022 Assessment and plan as outlined above We will hold IV furosemide in a.m. Appears approaching dry on exam anticipates pulmonary procedure Admission and Anticipated Discharge Date Admission Date: November 22, 2022 Subjective Patient seen and examined, chart, medications, telemetry reviewed Patient notes pulmonary status is generally stable. No dizziness or lightheadedness. Still urinating frequently. Cough stable but still present with minimal productive Appreciate pulmonology input Review of Systems Review of Systems: All systems reviewed & are unremarkable except as noted in Subjective Physical Exam Constitutional: + thin and + cachectic Respiratory: Auscultation: + diminished lung sounds (Decreased breath sounds throughout the base and mid left lung field, right ); no rales and no wheezes Cardiovascular: Rate/Rhythm: regular rhythm Heart Sounds: + murmur (1/6 murmur) Extremities: no edema Gastrointestinal (Abdomen): normal bowel sounds, soft, nontender, no hepatosplenomegaly Neurologic: PERRL, EOMI, accommodation nl, no face palsy, no dysarthria Results & Data Vital Signs (Past 12 Hours) Vital Signs Temp Pulse Pulse Resp BP BP Pulse Ox 11/25/22 08:49 36.8 C 90 17 113/74 96 11/25/22 07:15 97 H 20 84 L 11/25/22 07:06 99 H 11/25/22 02:57 37.0 C 99 H 18 118/73 96 O2 Del Method O2 Flow Rate 11/25/22 08:49 Room Air 11/25/22 07:15 Room Air 11/25/22 07:06 11/25/22 02:57 Nasal Cannula 2 Laboratory Results Laboratory Results - last 24 hr 11/25/22 11/25/22 11/25/22 05:36 05:36 05:36 WBC 12.02 H RBC 3.21 L Hgb 10.4 L Hct 30.1 L MCV 93.8 MCH 32.4 MCHC 34.6 RDW Std Deviation 46.0 RDW Coeff of Lizeth 13.2 Plt Count 407 H MPV 9.9 Sodium Potassium Chloride Carbon Dioxide Anion Gap BUN Creatinine Est Cr Clr Drug Dosing Est GFR ( Amer) Est GFR (Non-Af Amer) BUN/Creatinine Ratio Glucose Calcium Phosphorus Magnesium 25-OH Vitamin D Total 45.9 PTH Intact 60.6 11/25/22 05:36 WBC RBC Hgb Hct MCV MCH MCHC RDW Std Deviation RDW Coeff of Lizeth Plt Count MPV Sodium 130 L Potassium 3.9 Chloride 90 L Carbon Dioxide 34 H Anion Gap 6 BUN 10 Creatinine 0.67 Est Cr Clr Drug Dosing 82.3 Est GFR ( Amer) 106.7 Est GFR (Non-Af Amer) 92.0 BUN/Creatinine Ratio 14.9 Glucose 117 H Calcium 9.0 Phosphorus 2.8 Magnesium 1.7 25-OH Vitamin D Total PTH Intact
--- NOTE | 2022-11-25 19:44 | Electrocardiogram Report ---
Test Reason : Blood Pressure : / mmHG Vent. Rate : 094 BPM Atrial Rate : 094 BPM P-R Int : 142 ms QRS Dur : 100 ms QT Int : 348 ms P-R-T Axes : 065 021 163 degrees QTc Int : 435 ms Normal sinus rhythm Abnormal ECG No previous ECGs available Confirmed by Be Mark ([id number]) on 11/25/2022 7:43:38 PM Referred By: Richard Schwartz Confirmed By:Be Mark
[2022-11-25] MEDS: SIMVASTATIN 40 MG TAB PO SCH (20:14)
[2022-11-25] MEDS: ENOXAPARIN INJ 40 MG/0.4 ML SYR SQ SCH (20:15)
[2022-11-25] MEDS: LATANOPROST 0.005% OP SOLN 2.5 ML BTL OPB SCH (20:15)
--- NOTE | 2022-11-25 20:42 | Electrocardiogram Report ---
Test Reason : Blood Pressure : / mmHG Vent. Rate : 091 BPM Atrial Rate : 091 BPM P-R Int : 146 ms QRS Dur : 108 ms QT Int : 372 ms P-R-T Axes : 056 -20 129 degrees QTc Int : 457 ms Normal sinus rhythm Possible Left atrial enlargement T wave abnormality, consider lateral ischemia Abnormal ECG When compared with ECG of 22-NOV-2022 17:10, T wave inversion no longer evident in Inferior leads Nonspecific T wave abnormality no longer evident in Anterior leads Confirmed by Be Mark ([id number]) on 11/25/2022 8:42:07 PM Referred By: Richard Schwartz Confirmed By:Be Mark
--- NOTE | 2022-11-25 22:34 | Electrocardiogram Report ---
Test Reason : Blood Pressure : / mmHG Vent. Rate : 093 BPM Atrial Rate : 093 BPM P-R Int : 146 ms QRS Dur : 110 ms QT Int : 378 ms P-R-T Axes : 067 -24 110 degrees QTc Int : 469 ms Sinus rhythm with occasional Premature ventricular complexes Possible Left atrial enlargement Nonspecific T wave abnormality Abnormal ECG When compared with ECG of 23-NOV-2022 13:17, Premature ventricular complexes are now Present Confirmed by Be Mark ([id number]) on 11/25/2022 10:34:24 PM Referred By: Richard Schwartz Confirmed By:Be Mark
[2022-11-26] MEDS: ALBUT/IPRATROP 3MG/0.5MG NEB 3 ML VIAL NEB SCH ×3 (07:18→19:50)
--- NOTE | 2022-11-26 08:30 | XRay Report ---
XR chest 1V portable HISTORY: left pleural effusion COMPARISON: Chest 11/25/2022. FINDINGS: No pneumothorax. The cardiac silhouette remains mildly enlarged. Patchy bilateral airspace opacities and bilateral pleural effusions persist. IMPRESSION: No change in the patchy bilateral airspace opacities and bilateral pleural effusions. ACT 112: Negative or not required by law. Electronically signed by: Costa Rivera M.D. 11/26/2022 8:28 AM
[2022-11-26 08:57] LABS: Hematocrit (blood only) 29.7 % (42.0-52.0); Hemoglobin 10.1 g/dl (14.0-18.0); Mean Corpuscular Hemoglobin 32.1 pg (25.0-34.0); Mean Corpuscular Volume 94.3 fL (80.0-100.0); Mean Platelet Volume 9.6 fL (9.4-12.4); Platelet Count 335 K/uL (130-400); RDW Coefficient of Variation 13.4 % (11.5-14.5); RDW Standard Deviation 46.1 fL (36.4-46.3); Red Blood Count 3.15 M/uL (4.70-6.10); White Blood Count 8.69 K/ul (4.8-10.8)
--- NOTE | 2022-11-26 09:31 | Hospitalist Progress Note ---
Date of Service November 26, 2022 Assessment & Plan (1) Pleural effusion: (2) Hyponatremia: (3) Chronic diastolic heart failure: (4) Multifocal pneumonia: Plan: 77-year-old male with past medical significant for hyperlipidemia, COPD, pleural effusion, dyspnea on exertion, recurrent pneumonia, chronic diastolic CHF, primary open-angle glaucoma both eyes, presents with fevers going on for last week with shortness of breath on exertion, weakness, fatigue and cough bringing a slight of whitish phlegm .Was prescribed doxycycline as outpatient took for last 3 days but not improving so came to the ER. Reports recurrent pneumonia Has had thoracentesis in the past History of pleural effusions. Etiology unclear as per pulmonary plan for bronchoscopy if pleural effusions persist CTA Chest showed bilateral pleural effusion (Left >Right), widespread consolida tive opacities, centrilobular emphysema, extensive calcifications in LV myocardium. On presentation, labs were notable for BNP 1239, Mg 1.5, Na 128, Hb 10.7 Bilateral pleural effusion. Was on cefepime and doxycycline for possible multifocal pneumonia Antibiotics discontinued at this time per Pulm Patient to get Bronchoscopy today With elevated BNP, myocardial calcification noted on CTA chest, EKG showing TWI in aVL, II, lateral leads; Cardiomyopathy is likely contributing to pleural effusion Outpatient TTE from 11/2021 noted EF 60-64%, mild conc LV, large Lt pleural effusion and possible ascites with cardiac displacement. No significant valvular pathology TTE today noted diffuse myocardial calcification affecting interventricular septum and basal segments, pattern not typical for that expected with scar related to ischemic cardiomyopathy. Also hypokinesis of basal inferoseptum, EF 55-60%, severe mitral calcification, mild dil LA, mild pulm HTN PASP 40, Grade III diastolic dysfunction Cardiology evaluation appreciated Extensive myocardial calcification may be due to previous myocardial infarction or late sequela from myocarditis with some restrictive physiology Chronic diastolic heart failure Currently on IV lasix 20mg daily Thoracentesis (left) done by Pulm on 11/23/22 with 1500cc removed Fluid analysis is transudative Fluid cultures negative so far Will need 2 step prior to dc Hypotonic hyponatremia Likely from vol overload Na was 128 on presentation Serum osm 270 Uosm 470, Vanna 81 Na is 133 today On IV lasix Nephro recs appreciated Continue fluid restriction 1.5L Hyperlipidemia on statin DVT prophylaxis Lovenox Full code I spent a total of 40 minutes coordinating, documenting and providing care for this patient excluding time spent in performance of separately billed services Admission and Anticipated Discharge Date Admission Date: November 22, 2022 Subjective Patient seen and examined Still reports cough and SOB with activity Reports generalized weakness Denied any chest pain, nausea, vomiting, abd pain, diarrhea, constipation, dysuria, freq, urgency Physical Exam Constitutional: + well hydrated; no acute distress Eyes: PERRL, conjunctivae normal, anicteric sclerae ENMT: external ear and nose normal, oropharynx normal Respiratory: normal respiratory effort; no respiratory distress Diminished breath sounds Cardiovascular: Rate/Rhythm: regular rate and regular rhythm S1 S2 Gastrointestinal (Abdomen): normal bowel sounds, soft, nontender, no hepatosplenomegaly Musculoskeletal: No pedal edema Neurologic: PERRL, EOMI, accommodation nl, no face palsy, no dysarthria Psychiatric: A+Ox3, euthymic affect Results & Data Results & Data Vital Signs (Past 12 Hours) Vital Signs Temp Pulse Pulse Resp BP Pulse Ox O2 Del Method 11/26/22 07:41 37.2 C 98 H 18 100/60 94 Room Air 11/26/22 07:22 96 H 11/26/22 07:18 101 H 16 95 Nasal Cannula 11/26/22 02:56 36.8 C 95 H 18 121/73 96 Nasal Cannula 11/25/22 22:01 89 11/25/22 23:14 37.1 C 89 18 105/65 98 Nasal Cannula 11/25/22 21:33 Nasal Cannula O2 Flow Rate 11/26/22 07:41 11/26/22 07:22 11/26/22 07:18 2 11/26/22 02:56 2 11/25/22 22:01 11/25/22 23:14 2 11/25/22 21:33 2 Laboratory Results Abnormal lab results 11/26/22 11/26/22 Range/Units 07:43 07:43 RBC 3.15 L (4.70-6.10) M/uL Hgb 10.1 L (14.0-18.0) g/dl Hct 29.7 L (42.0-52.0) % Sodium 133 L (136-145) mmol/L Chloride 93 L (98-107) mmol/L Carbon Dioxide 36 H (21-32) mmol/L Creatinine 0.58 L (0.6-1.4) mg/dl Magnesium 1.6 L (1.7-2.4) mg/dl
[2022-11-26] MEDS ORDERED: MIDAZOLAM HCL 1 MG/ML 2ML VIAL ONE (09:46)
[2022-11-26] MEDS ORDERED: fentaNYL citrate PF 100 MCG/2 ML VIAL ONE (09:46)
[2022-11-26] MEDS ORDERED: MIDAZOLAM HCL 5 MG/ML 1 ML VIAL ONE (09:46)
--- NOTE | 2022-11-26 10:03 | History & Physical Bridge Note ---
Date of Service November 26, 2022 History & Physical Bridge Note I have examined the patient, reviewed the History & Physical and in the interval since the performance of the History & Physical I have noted the following changes of clinical significance: no changes noted
--- NOTE | 2022-11-26 10:03 | Pre Anesthesia Assessment ---
Date of Service November 26, 2022 Pre Sedation Assessment Vital Signs Temp Pulse Pulse Resp BP BP Pulse Ox 11/26/22 09:40 94 H 18 120/59 L 94 11/26/22 07:41 37.2 C 98 H 18 100/60 94 11/26/22 07:22 96 H 11/26/22 07:18 101 H 16 95 11/26/22 02:56 36.8 C 95 H 18 121/73 96 11/25/22 22:01 89 11/25/22 23:14 37.1 C 89 18 105/65 98 11/25/22 21:33 11/25/22 19:17 37.2 C 93 H 18 109/67 93 11/25/22 19:01 93 H 18 92 11/25/22 16:00 101 H 11/25/22 15:59 36.9 C 93 H 16 104/67 99 11/25/22 12:40 36.7 C 90 16 114/70 95 11/25/22 12:35 93 H 22 97 O2 Del Method O2 Flow Rate 11/26/22 09:40 Room Air 11/26/22 07:41 Room Air 11/26/22 07:22 11/26/22 07:18 Nasal Cannula 2 11/26/22 02:56 Nasal Cannula 2 11/25/22 22:01 11/25/22 23:14 Nasal Cannula 2 11/25/22 21:33 Nasal Cannula 2 11/25/22 19:17 Room Air 11/25/22 19:01 Room Air 11/25/22 16:00 11/25/22 15:59 Nasal Cannula 2 11/25/22 12:40 Nasal Cannula 2 11/25/22 12:35 Nasal Cannula 2 Pre-Sedation Airway Assessment Smoking Status: Former smoker Hx Sleep Apnea: No Short, Thick Neck: No Thyromental Distance: > or= 3.5 Finger Breadths Oral Cavity: + Dentures Mallampati Class: II ASA: ASA3 NPO Status Date of Last Intake of Fluids: 11/25/22 Time of Last Intake of Fluids: 21:00 Date of Last Intake of Solid Food: 11/25/22 Time of Last Intake of Solid Foods: 21:00 Notes The planned sedation has been discussed with the patient. Informed Consent was obtained. I have identified the patient, determined the appropriateness of sedation and have assessed the patient immediately prior to the procedure. All medicine(s) and interventions are by my order.
[2022-11-26 10:18] LABS: Magnesium 1.6 mg/dl (1.7-2.4); Potassium 3.8 mmol/L (3.5-5.1)
[2022-11-26 10:24] LABS: BUN Creatinine Ratio 17.2 (10-20); Creatinine Clr Calc Pharmacy 92.3 ml/min; Est GFR (African American) 113.2 ml/min; Est GFR (Non-African American) 97.7 ml/min; Phosphorus 2.8 mg/dl (2.5-4.9)
--- NOTE | 2022-11-26 10:52 | Post Anesthesia Assessment ---
Date of Service November 26, 2022 Post Sedation Assessment Vital Signs Temp Pulse Pulse Resp BP BP Pulse Ox 11/26/22 08:00 11/26/22 10:36 109 H 18 121/70 92 11/26/22 10:35 110 H 16 128/84 90 11/26/22 10:30 108 H 16 117/81 93 11/26/22 10:25 109 H 16 116/70 95 11/26/22 10:20 101 H 18 123/68 95 11/26/22 10:15 100 H 18 119/75 92 11/26/22 10:10 92 H 18 106/72 94 11/26/22 10:05 92 H 18 111/69 99 11/26/22 09:40 94 H 18 120/59 L 94 11/26/22 07:41 37.2 C 98 H 18 100/60 94 11/26/22 07:22 96 H 11/26/22 07:18 101 H 16 95 11/26/22 02:56 36.8 C 95 H 18 121/73 96 11/25/22 22:01 89 11/25/22 23:14 37.1 C 89 18 105/65 98 11/25/22 21:33 11/25/22 19:17 37.2 C 93 H 18 109/67 93 11/25/22 19:01 93 H 18 92 11/25/22 16:00 101 H 11/25/22 15:59 36.9 C 93 H 16 104/67 99 11/25/22 12:40 36.7 C 90 16 114/70 95 11/25/22 12:35 93 H 22 97 O2 Del Method O2 Flow Rate 11/26/22 08:00 Nasal Cannula 2 11/26/22 10:36 Oxymask 13 11/26/22 10:35 Oxymask 15 11/26/22 10:30 Oxymask 10 11/26/22 10:25 Oxymask 10 11/26/22 10:20 Oxymask 10 11/26/22 10:15 Oxymask 10 11/26/22 10:10 Oxymask 10 11/26/22 10:05 Oxymask 5 11/26/22 09:40 Room Air 11/26/22 07:41 Room Air 11/26/22 07:22 11/26/22 07:18 Nasal Cannula 2 11/26/22 02:56 Nasal Cannula 2 11/25/22 22:01 11/25/22 23:14 Nasal Cannula 2 11/25/22 21:33 Nasal Cannula 2 11/25/22 19:17 Room Air 11/25/22 19:01 Room Air 11/25/22 16:00 11/25/22 15:59 Nasal Cannula 2 11/25/22 12:40 Nasal Cannula 2 11/25/22 12:35 Nasal Cannula 2 Recovery Score Activity: Moves 4 extremities Respiration: Deep Breath/Cough Circulation: +/-20% PreAnes Value Consciousness: Arouseable (by name) Oxygen Saturation: O2 needed for >90% Post Anesthesia Score: 8 Discharge Sedation Level of Care: Fast Track Phase II Post Sedation Plan On clinical assessment, the patient appears to have tolerated the sedation without complications. Patient is recovering as anticipated. Patient will continue to be monitored by nursing and may be discharged when sedation discharge criteria are met per below protocol. Upon Completions of procedure up to 15 minutes continue every 5 minute vital signs and the P.A.R. score; then discharge to a Phase I or Fast Track to Phase II per the following guidelines: * Discharge Patient to appropriate Phase II area if PAR is 8 or greater or return to pre- procedure baseline. The post - procedure orders will be as directed. * If PAR score is less than 8 or not return to pre-procedure baseline then patient will follow Phase I monitoring till PAR is reached for Phase II. The Phase I may be done in procedure room or may call to secure a Phase I area. * If naloxone or flumazenil are used for reversal, hold in Phase I for continued monitoring from when last reversal dose was given for a minimum of 60 minutes or longer pending the nurse and/or physician discretion of patient condition before discharge to Phase II. Please call the Sedation Physician to re-evaluate and complete post-note for discharge to Phase II area. Do NOT discharge from procedure sedation or Phase 1 until post- sedation evaluation note is complete by procedure /sedation MD Sedation Discharge Instructions to be given to the patient at discharge to home.
--- NOTE | 2022-11-26 10:58 | Pulmonology Progress Note ---
Date of Service November 26, 2022 Assessment & Plan (1) Pleural effusion: (2) Abnormal CT scan of lung: (3) Bronchiectasis: Plan Impression: 77-year-old male with recurrent pleural effusions and multifocal patchy airspace opacities of unclear etiology. Has been treated for pneumonia however his procalcitonin is normal, he is afebrile, his white count is normal. He does have underlying anemia as well as myocardial ossification of unclear etiology. I think the patient has 2 separate issues with the pleural effusions likely related to his grade 3 diastolic dysfunction and the multifocal airspace opacity of unclear etiology. Unclear if the patient could have a constrictive or restrictive pericardial component contributing to his pleural effusions however his right atrial pressure on echocardiogram was normal. Atypical infections including nontuberculous mycobacteria would be on the differential as the patient does have some evidence of bronchiectasis as well. Cannot exclude other underlying inflammatory conditions such as sarcoidosis. Other atypical infections such as coccidiomycosis, cryptococcus, histoplasmosis, and blasto mycosis would all be in the differential as well. Serologies are pending and the patient is n.p.o. for bronchoscopy today. Recommendations: 1. Patient will undergo bronchoscopy with BAL and transbronchial biopsies as well as TBNA of mediastinal lymph nodes. Cytology and microbiology of samples will be sent. 2. Patient does have an elevated bicarb. Unclear if this is contraction alkalosis given his diuretic dose. Blood gas pending 3. Pleural effusions: These appear to be transudative and are likely related to the patient's grade 3 diastolic dysfunction. Blood pressure control and diuretics as tolerated recommended. He does not have significant peripheral edema. 4. Evaluation of the patient's baseline anemia per primary service. Await results from bronchoscopy. The patient does not necessarily need to be an inpatient for these results and can follow-up with his [facility] pulmonary team at discharge. Admission and Anticipated Discharge Date Admission Date: November 22, 2022 Subjective Patient seen and examined prior to bronchoscopy. He is doing well. He is hungry as he has been n.p.o. and is anxious to resume his diet. He is coughing but not expectorating phlegm. He does not feel significantly different from yesterday Review of Systems Review of Systems: All systems reviewed & are unremarkable except as noted in Subjective Physical Exam Constitutional: WD/WN, vitals as above ENMT: Mallampati Class: II Neck: trachea midline, no thyromegaly Respiratory: normal respiratory effort, lungs clear to auscultation Cardiovascular: RRR, no murmur, no edema Gastrointestinal (Abdomen): normal bowel sounds, soft, nontender, no hepatosplenomegaly Musculoskeletal: Extremities: extremities normal to inspection Skin: no rashes, warm and dry Lymphatic: no cervical lymphadenopathy Results & Data Results & Data Vital Signs (Past 12 Hours) Vital Signs Temp Pulse Pulse Resp BP BP Pulse Ox 11/26/22 08:00 11/26/22 10:36 109 H 18 121/70 92 11/26/22 10:35 110 H 16 128/84 90 11/26/22 10:30 108 H 16 117/81 93 11/26/22 10:25 109 H 16 116/70 95 11/26/22 10:20 101 H 18 123/68 95 11/26/22 10:15 100 H 18 119/75 92 11/26/22 10:10 92 H 18 106/72 94 11/26/22 10:05 92 H 18 111/69 99 11/26/22 09:40 94 H 18 120/59 L 94 11/26/22 07:41 37.2 C 98 H 18 100/60 94 11/26/22 07:22 96 H 11/26/22 07:18 101 H 16 95 11/26/22 02:56 36.8 C 95 H 18 121/73 96 11/25/22 23:14 37.1 C 89 18 105/65 98 O2 Del Method O2 Flow Rate 11/26/22 08:00 Nasal Cannula 2 11/26/22 10:36 Oxymask 13 11/26/22 10:35 Oxymask 15 11/26/22 10:30 Oxymask 10 11/26/22 10:25 Oxymask 10 11/26/22 10:20 Oxymask 10 11/26/22 10:15 Oxymask 10 11/26/22 10:10 Oxymask 10 11/26/22 10:05 Oxymask 5 11/26/22 09:40 Room Air 11/26/22 07:41 Room Air 11/26/22 07:22 11/26/22 07:18 Nasal Cannula 2 11/26/22 02:56 Nasal Cannula 2 11/25/22 23:14 Nasal Cannula 2 Laboratory Results 11/26/22 07:43 11/26/22 07:43 Diagnostic Findings No new imaging PG Care Time/CCT Total # of Minutes Spent Total Time Spent with Patient: Total time spent is greater than 50% in coordination of care (as documented) at patient's floor/unit and/or counseling patient: Coding Level of Care Code 36097 SUB INP/OBS CARE 3/50MIN Diagnoses Pleural effusion J90 Abnormal CT scan of lung R91.8 Bronchiectasis J47.9
--- NOTE | 2022-11-26 11:06 | Nephrology Progress Note ---
Date of Service November 26, 2022 Assessment & Plan (1) Hyponatremia: Plan: stable/slightly improved hypervolemic w/ BL transudative pleural effusions >agree w/ plan for diuretics as tolerated>lasix on hold pending BAL and due to contraction alkalosis >>will lower K to daily while lasix on hold Will follow peripherally. Resume lasix when feasible. NEPHRO D/C RECOMMENDATIONS -check bmp at PCP hospital d/c appt -favor hospital discharge appt with [facility] 3-4 wks after d/c w/ BMP, urine and serum osms, rd urine sodium a few days before appt -may need to dose lasix every other day w/ K at hospital d/c (2) Calcification and ossification of muscle: Plan: ?late sequela of remote myocarditis Admission and Anticipated Discharge Date Admission Date: November 22, 2022 Subjective Seen shortly after bronchoscopy late morning. Patient still lethargic after anesthesia but answers 1 or 2 simple questions appropriately. Review of Systems Review of Systems: All systems reviewed & are unremarkable except as noted in Subjective and Unobtainable due to reduced consciousness (Fatigue after p rocedure) Physical Exam Constitutional: well developed, well nourished, + thin, + frail appearing and cooperative; no acute distress Eyes: EOM intact bilaterally ENMT: Ears: no external ear abnormality Nose: no external nose abnormality Mouth: + dry oral mucous membranes Neck: no nuchal rigidity Respiratory: normal respiratory effort Auscultation: + diminished lung sounds and + rhonchi Cardiovascular: RRR, no murmur, no edema Gastrointestinal (Abdomen): Inspection/Auscultation: normal bowel sounds Pe rcussion/Palpation: abdomen soft; abdomen nontender Musculoskeletal: Extremities: strength 5/5 throughout Skin: no rashes, warm and dry Neurologic: aiken, appropriate but limited speech, no tremor Psychiatric: Orientation: oriented to person and oriented to place Results & Data Vital Signs (Past 12 Hours) Vital Signs Temp Pulse Pulse Resp BP BP Pulse Ox 11/26/22 10:45 100 H 18 112/66 97 11/26/22 08:00 11/26/22 10:36 109 H 18 121/70 92 11/26/22 10:35 110 H 16 128/84 90 11/26/22 10:30 108 H 16 117/81 93 11/26/22 10:25 109 H 16 116/70 95 09/05/23 10:20 101 H 18 123/68 95 11/26/22 10:15 100 H 18 119/75 92 11/26/22 10:10 92 H 18 106/72 94 11/26/22 10:05 92 H 18 111/69 99 11/26/22 09:40 94 H 18 120/59 L 94 11/26/22 07:41 37.2 C 98 H 18 100/60 94 11/26/22 07:22 96 H 11/26/22 07:18 101 H 16 95 11/26/22 02:56 36.8 C 95 H 18 121/73 96 11/25/22 23:14 37.1 C 89 18 105/65 98 O2 Del Method O2 Flow Rate 11/26/22 10:45 Oxymask 10 11/26/22 08:00 Nasal Cannula 2 11/26/22 10:36 Oxymask 13 11/26/22 10:35 Oxymask 15 11/26/22 10:30 Oxymask 10 11/26/22 10:25 Oxymask 10 11/26/22 10:20 Oxymask 10 11/26/22 10:15 Oxymask 10 11/26/22 10:10 Oxymask 10 11/26/22 10:05 Oxymask 5 11/26/22 09:40 Room Air 11/26/22 07:41 Room Air 11/26/22 07:22 11/26/22 07:18 Nasal Cannula 2 11/26/22 02:56 Nasal Cannula 2 11/25/22 23:14 Nasal Cannula 2 Laboratory Results 11/26/22 07:43 11/26/22 07:43
--- NOTE | 2022-11-26 11:06 | Procedure Note ---
Procedure Note: Bronchoscopy Procedure Procedure: Fiberoptic bronchoscopy Endobronchial ultrasound with transbronchial needle aspiration of lymph nodes, 3 stations Bronchoalveolar lavage Transbronchial biopsies without fluoroscopic guidance Conscious sedation Provider: El Peraza MD Consent: Signed by patient and timeout verified prior to procedure. Sedation start: 100 Sedation end: 103 Conscious sedation: Topical lidocaine per RT protocol, 150 mcg fentanyl, 6 mg Versed Indication: Abnormal CT scan Estimated blood loss: Less than 10 mL Procedure: Patient was brought to the bronchoscopy suite. Consent was verified. Appropriate radiographic studies had been reviewed prior to the procedure. Standard monitoring was applied. Oxygen was administered. After topical anesthesia of the airways per respiratory therapy protocol, the fiberoptic scope was advanced through the right nares. Oropharynx was unremarkable. Vocal cords were visualized and were normal in function and appearance. Topical anesthesia of the cords was achieved with instillation of lidocaine through the scope. Scope was then passed through the vocal cords. The trachea was slightly tortuous. Main rodriguez was minimally splayed. Anesthesia of the lower airways was achieved with instillation of lidocaine through the scope. A sequential and systematic examination of the lower airways was conducted. The right-sided airways were normal in anatomic configuration with mildly inflamed mucosa. Left-sided airways were normal in anatomic con figuration and the mucosa appeared normal. After the inspection bronchoscopy was completed, the scope was wedged into the lingula. A BAL was attempted with instillation of 2 aliquots of 50 mL of louis ine. Return was suboptimal as there was significant dynamic collapse of the airways however there did not appear to be any evidence of hemorrhage on the specimen recovered. The scope was then directed into the apical posterior segment of the left upper lobe. 6 transbronchial biopsies were performed without fluoroscopic guidance. 1 sample was placed in saline for culture and microbiologic studies and the other were placed in formalin for histological evaluation. The fiberoptic bronchoscope was then removed from the nares and the endobronchial ultrasound was advanced through the oropharynx via the bite-block. A systematic survey of mediastinal lymph node stations was identified showing adenopathy within the 4 L, 7, 10 R and 10 L stations. Using a 21-gauge needle and under direct ultrasound visualization, fine-needle aspiration was performed of the level 10 L, 4L, and 7 lymph node stations. 3 passes of each station were undertaken with 12-18 sweeps per pass. Specimens were collected for microbiologic as well as cytologic analysis. Minimal bleeding was encountered which was controlled with instillation of saline. Hemostasis was confirmed The bronchoscope was then removed from the airways. The patient tolerated the procedure well without obvious complication. Patient was returned to the recovery room. Impression: 1. Normal inspection bronchoscopy. 2. Successful BAL/transbronchial biopsies left upper lobe/lingula 3. Significant mediastinal adenopathy status post endobronchial sound guided transbronchial needle aspiration. Await studies. [facility] Procedure Codes (Charges) Pulmonary/Thoracic Procedure 1: Pulmonary and Thoracic: 77032 Bronchoscopy, w/EBUS, 3+ mediastinal Procedure 2: Pulmonary and Thoracic: 83328 Bronchoscopy w/ transbronchial lung bx Procedure 3: Pulmonary and Thoracic: 53243 Dx bronchoscopy/BAL Sedation/Anesthesia Procedure 4: Sedation/Anesthesia: 36458 Mod Sedation by the same physician;Init15 Min Child Age 5 & Up Procedure 5: Sedation/Anesthesia: 54273 Mod Sedation by the same physician; Ea [id number] Minutes Total Sedation Time (minutes): 30
--- NOTE | 2022-11-26 12:14 | XRay Report ---
XR chest 1V portable CLINICAL HISTORY: Post Bronchoscopy TECHNIQUE: Single frontal radiograph of the chest was obtained. Comparison: Comparison is made to chest radiograph 11/26/2022 FINDINGS: No lines and tubes are seen. The cardiomediastinal silhouette is normal. Multifocal airspace opacitie s are seen. Moderate left and small right pleural effusions are seen. IMPRESSION: Moderate left and small right pleural effusions are seen. Multifocal airspace opacities are again not ed. No evidence of pneumothorax in this patient status post bronchoscopy. ACT 112: Negative or not required by law. Electronically signed by: Gideon Lee M.D. 11/26/2022 12:12 PM
[2022-11-26 12:31] LABS: iSTAT Allen Test Pass; iSTAT Art Bld Gas pCO2 Correct 51 mmHg (35-46); iSTAT Art Bld Gas pH Corrected 7.454 (7.35-7.45); iSTAT Arterial Blood Gas HCO3 36 meg/L (19-24); iSTAT Arterial Blood Gas pCO2 51 mmHg (35-46); iSTAT Arterial Blood Gas pH 7.45 (7.35-7.45); iSTAT Arterial Blood Gas pO2 91 mmHg (80-95); iSTAT Arterial Blood Gas pO2 C 91; iSTAT Carbon Dioxide 37 mmol/L (24-31); iSTAT Hematocrit 29 % (42-52); iSTAT Hemoglobin 9.9 g/dl (14.0-18.0); iSTAT Potassium 3.8 mmol/L (3.3-5.0); iSTAT Site L Radial; iSTAT Sodium 129 mmol/L (135-144)
[2022-11-26 12:57] LABS: Eosinophil Body Fluid Man 1 %; Fluid Mono/Macrophage 64 %; Lymphocyte Body Fluid Man 12 %; Neutrophil Body Fluid Man 23 %
[2022-11-26] MEDS: guaiFENesin 600 MG TABCR PO SCH ×2 (13:00→20:06)
[2022-11-26] MEDS: LEVOBUNOLOL HCL 0.5% OP SOLN 5 ML BTL OPB SCH ×2 (13:00→20:08)
[2022-11-26] MEDS: MAGNESIUM OXIDE 400 MG TAB PO SCH (13:00)
[2022-11-26] MEDS: CHOLECALCIFEROL 1,000 UNITS 25 MCG TAB PO SCH (13:00)
[2022-11-26 16:23] LABS: Base Excess ABG 10.7 mEq/L (-9-1.8); HCO3 ABG 37 mmol/L (19-24); PCO2 ABG 56 mmHg (35-46); PO2 ABG 58 mmHg (80-95); pH ABG 7.43 (7.35-7.45)
[2022-11-26 16:25] LABS: Oxygen Saturation ABG 89.7 % (90-95)
[2022-11-26 16:26] LABS: Allen Test Pos (Pos)
[2022-11-26] MEDS: FLUTICASONE PROPIONATE NA SPR 16 GM BTL SCH (16:58)
[2022-11-26] MEDS: CEROVITE ADV FORMULA TAB PO SCH (16:59)
[2022-11-26] MEDS: PSYLLIUM or GUAR GUM FIBER POWDER PACKET PO SCH (16:59)
[2022-11-26] MEDS: SERTRALINE HCL 50 MG TABLET PO SCH (16:59)
[2022-11-26] MEDS: POTASSIUM CHLORIDE 10 MEQ TABCR PO SCH (17:03)
--- NOTE | 2022-11-26 17:42 | Communication Note ---
Date of Service: November 26, 2022 Patient was having bronchoscopy when I attempted to see him this morning. Currently he is resting comfortably and I did not wake him. Telemetry reveals sinus rhythm with rates in the 80s to 90s. Laboratory findings consistent with contraction alkalosis noted. Holding oral and IV diuretics a.m. of 11/27/2022 pending results of chemistry panel. Long-term, I do think he will require ongoing diuretic therapy, and this likely needs to be more aggressive than the previous dose of 20 mg of furosemide p.o. daily.
[2022-11-26] MEDS: ENOXAPARIN INJ 40 MG/0.4 ML SYR SQ SCH (20:06)
[2022-11-26] MEDS: SIMVASTATIN 40 MG TAB PO SCH (20:06)
[2022-11-26] MEDS: LATANOPROST 0.005% OP SOLN 2.5 ML BTL OPB SCH (20:06)
[2022-11-27] MEDS: ALBUT/IPRATROP 3MG/0.5MG NEB 3 ML VIAL NEB SCH ×2 (06:18→12:19)
[2022-11-27] MEDS: CEROVITE ADV FORMULA TAB PO SCH (08:32)
[2022-11-27] MEDS: PSYLLIUM or GUAR GUM FIBER POWDER PACKET PO SCH (08:32)
[2022-11-27] MEDS: guaiFENesin 600 MG TABCR PO SCH (08:33)
[2022-11-27] MEDS: SERTRALINE HCL 50 MG TABLET PO SCH (08:33)
[2022-11-27] MEDS: MAGNESIUM OXIDE 400 MG TAB PO SCH (08:33)
[2022-11-27] MEDS: FLUTICASONE PROPIONATE NA SPR 16 GM BTL SCH (08:34)
[2022-11-27] MEDS: LEVOBUNOLOL HCL 0.5% OP SOLN 5 ML BTL OPB SCH (08:34)
[2022-11-27] MEDS: CHOLECALCIFEROL 1,000 UNITS 25 MCG TAB PO SCH (08:34)
[2022-11-27] MEDS ORDERED: POTASSIUM CHLORIDE 10 MEQ TABCR PO SCH (09:00)
[2022-11-27 09:52] LABS: Hematocrit (blood only) 27.8 % (42.0-52.0); Hemoglobin 9.5 g/dl (14.0-18.0); Mean Corpuscular Hemoglobin 32.8 pg (25.0-34.0); Mean Corpuscular Hgb Conc 34.2 g/dL (32.0-36.0); Mean Corpuscular Volume 95.9 fL (80.0-100.0); Mean Platelet Volume 9.6 fL (9.4-12.4); Platelet Count 336 K/uL (130-400); RDW Coefficient of Variation 13.4 % (11.5-14.5); RDW Standard Deviation 47.3 fL (36.4-46.3); White Blood Count 8.92 K/ul (4.8-10.8)
[2022-11-27 10:21] LABS: Calcium 8.9 mg/dl (8.6-10.3); Magnesium 1.6 mg/dl (1.7-2.4)
[2022-11-27 10:27] LABS: BUN Creatinine Ratio 20.8 (10-20); Creatinine Clr Calc Pharmacy 100.9 ml/min; Est GFR (African American) 117.5 ml/min; Est GFR (Non-African American) 101.3 ml/min; Phosphorus 2.8 mg/dl (2.5-4.9)
--- NOTE | 2022-11-27 12:51 | Pulmonology Progress Note ---
Date of Service November 27, 2022 Assessment & Plan (1) Pleural effusion: (2) Abnormal CT scan of lung: (3) Bronchiectasis: Plan Impression: 77-year-old male with recurrent pleural effusions and multifocal patchy airspace opacities of unclear etiology. Has been treated for pneumonia however his procalcitonin is normal, he is afebrile, his white count is normal. He does have underlying anemia as well as myocardial ossification of unclear etiology. I think the patient has 2 separate issues with the pleural effusions likely related to his grade 3 diastolic dysfunction and the multifocal airspace opacity of unclear etiology. Unclear if the patient could have a constrictive or restrictive pericardial component contributing to his pleural effusions however his right atrial pressure on echocardiogram was normal. Atypical infections including nontuberculous mycobacteria would be on the differential as the patient does have some evidence of bronchiectasis as well. Cannot exclude other underlying inflammatory conditions such as sarcoidosis. Other atypical infections such as coccidiomycosis, cryptococcus, histoplasmosis, and blasto mycosis would all be in the differential as well. Awaiting final serologies as well as final results from bronchoscopy specimen. Recommendations: 1. Patient is status post bronchoscopy with bronchoalveolar lavage, transbronchial biopsies, and TBNA of mediastinal lymph nodes. Await final path. The patient can follow-up with [facility] pulmonary to review these results. 2. Mild respiratory acidosis with CO2 around 50. Correlation with outpatient PFTs recommended. Consideration for overnight polysomnography might be appropr iate and is deferred to the patient's [facility] pulmonary group. 3. Pleural effusions: These appear to be transudative and are likely related to the patient's grade 3 diastolic dysfunction. Blood pressure control and diuretics as tolerated recommended. He does not have significant peripheral jesús ma. 4. Hypoxemia: Recommend two-step assessment prior to discharge and arrangement for supplemental oxygen if the patient qualifies. We will need to follow-up on final results from the bronchoscopy as well as culture data. The patient can follow-up with his providers at [facility]. He appears stable to dismiss from the hospital at this point time. Pulmonary will sign off. Feel free to contact us with questions or concerns Admission and Anticipated Discharge Date Admission Date: November 22, 2022 Subjective Patient seen and examined. EMR reviewed. Discussed with patient at bedside. The patient states that he is feeling better. He is not having significant respiratory issues. He anticipates being able to go home today. He does not report any significant cough or sputum production. He thinks his breathing is overall better. He recovered well from bronchoscopy without significant adverse effect. Review of Systems Review of Systems: All systems reviewed & are unremarkable except as noted in Subjective Physical Exam Constitutional: WD/WN, vitals as above ENMT: Mallampati Class: II Neck: trachea midline, no thyromegaly Respiratory: normal respiratory effort, lungs clear to auscultation Cardiovascular: RRR, no murmur, no edema Gastrointestinal (Abdomen): normal bowel sounds, soft, nontender, no hepatosplenomegaly Musculoskeletal: Extremities: extremities normal to inspection Skin: no rashes, warm and dry Lymphatic: no cervical lymphadenopathy Results & Data Results & Data Vital Signs (Past 12 Hours) Vital Signs Temp Pulse Pulse Pulse Pulse Pulse Resp 11/27/22 12:19 90 18 11/27/22 08:00 11/27/22 11:22 36.9 C 97 H 17 11/27/22 09:48 115 H 95 H 97 H 11/27/22 07:59 36.8 C 99 H 17 11/27/22 07:28 98 H 11/27/22 06:18 97 H 20 11/27/22 02:26 36.7 C 94 H 16 Resp Resp Resp BP Pulse Ox Pulse Ox Pulse Ox 11/27/22 12:19 94 11/27/22 08:00 11/27/22 11:22 111/71 97 11/27/22 09:48 24 20 22 90 92 11/27/22 07:59 96/58 L 99 11/27/22 07:28 11/27/22 06:18 92 11/27/22 02:26 101/56 L 97 Pulse Ox O2 Del Method O2 Flow Rate O2 Flow Rate O2 Flow Rate 11/27/22 12:19 Nasal Cannula 1 11/27/22 08:00 Nasal Cannula 2 11/27/22 11:22 Nasal Cannula 2 11/27/22 09:48 85 L 1 1 11/27/22 07:59 Nasal Cannula 2 11/27/22 07:28 11/27/22 06:18 Nasal Cannula 2 11/27/22 02:26 Nasal Cannula 2 Laboratory Results 11/27/22 09:10 11/27/22 09:10 Bronchoscopy specimens: Gram stain and cultures no organisms, no growth to date Fungal stains negative cultures pending AFB stains negative, cultures pending Cytology pending BAL differential: 23% neutrophils, 12% lymphocytes, 1% eosinophils and 64% monocytic/macrophages Diagnostic Findings Post bronchoscopy chest x-ray from yesterday was independently reviewed. left- sided effusion there is a moderate size left effusion with small right effusion. Continued patchy parenchymal airspace opacities again identified PG Care Time/CCT Total # of Minutes Spent Total Time Spent with Patient: Total time spent is greater than 50% in coordination of care (as documented) at patient's floor/unit and/or counseling patient: Coding Level of Care Code 71597 SUB INP/OBS CARE 3/50MIN Diagnoses Pleural effusion J90 Abnormal CT scan of lung R91.8 Bronchiectasis J47.9
--- NOTE | 2022-11-27 13:26 | Hospitalist Progress Note ---
Date of Service November 27, 2022 Assessment & Plan (1) Pleural effusion: (2) Chronic diastolic heart failure: (3) Hyponatremia: Plan: per previous hospitalist service notes with addendum: 77-year-old male with past medical significant for hyperlipidemia, COPD, pleural effusion, dyspnea on exertion, recurrent pneumonia, chronic diastolic CHF, primary open-angle glaucoma both eyes, presents with fevers going on for last week with shortness of breath on exertion, weakness, fatigue and cough bringing a slight of whitish phlegm .Was prescribed doxycycline as outpatient took for last 3 days but not improving so came to the ER. Reports recurrent pneumonia Has had thoracentesis in the past History of pleural effusions. Etiology unclear as per pulmonary plan for bronchoscopy if pleural effusions persist CTA Chest showed bilateral pleural effusion (Left >Right), widespread consolidative opacities, centrilobular emphysema, extensive calcifications in LV myocardium. On presentation, labs were notable for BNP 1239, Mg 1.5, Na 128, Hb 10.7 BILATERAL PLEURAL EFFUSION LIKELY SECONDARY TO ACUTE ON CHRONIC DIASTOLIC CHF Was on cefepime and doxycycline for possible multifocal pneumonia Antibiotics discontinued at this time per Pulm With elevated BNP, myocardial calcification noted on CTA chest, EKG showing TWI in aVL, II, lateral leads; Cardiomyopathy is likely contributing to pleural effusion Outpatient TTE from 11/2021 noted EF 60-64%, mild conc LV, large Lt pleural effusion and possible ascites with cardiac displacement. No significant valvular pathology TTE today noted diffuse myocardial calcification affecting interventricular septum and basal segments, pattern not typical for that expected with scar related to ischemic cardiomyopathy. Also hypokinesis of basal inferoseptum, EF 55-60%, severe mitral calcification, mild dil LA, mild pulm HTN PASP 40, Grade III diastolic dysfunction Cardiology evaluation appreciated Extensive myocardial calcification may be due to previous myocardial infarction or late sequela from myocarditis with some restrictive physiology Chronic diastolic heart failure givenIV lasix 20mg daily Thoracentesis (left) done by Pulm on 11/23/22 with 1500cc removed Fluid analysis is transudative Fluid cultures negative so far s/p Bronchoscopy: with bronchoalveolar lavage, transbronchial biopsies, and TBNA of mediastinal lymph nodes. Await final path. [facility]. Mild respiratory acidosis with CO2 around 50. Correlation with outpatient PFTs recommended. Consideration for overnight polysomnography might be appropriate and is deferred to the patient's [facility] pulmonary group. will need Lasix regimen upon discharge 2 step exercise test: needs 1 L o2 via NC at all times Hypotonic hyponatremia Likely from vol overload Na was 128 on presentation Serum osm 270 Uosm 470, Vanna 81 Na improved to 133 Nephro consulted D/C home today ff up with PCP in 1 week Admission and Anticipated Discharge Date Admission Date: November 22, 2022 Subjective ff up for pleural effusion, etc seen resting in bedside chair, comfortable on 1 L nasal cannula states he feels fine overall no dyspnea, has intermittent cough, no chest pain no abdominal pain ,nausea/vomiting no other symptoms Review of Systems Review of Systems: all noted and negative except for above Physical Exam Physical Exam: General- oriented x 3, not in distress, speaks in sentences with no effort or accessory muscle use Eyes- anicteric Neck- no JVD Lungs- mild rales at the bases no wheezing Heart- normal rate, regular rhythm; no murmurs Abdomen- normal bowel sounds, nondistended, soft, nontender Extremities- no pretibial edema, no calf tenderness Neuro- alert, oriented x 3; no gross focal neurologic deficits Skin- warm & dry Results & Data Results & Data Vital Signs (Past 12 Hours) Vital Signs Temp Pulse Pulse Pulse Pulse Pulse Resp 11/27/22 12:19 90 18 11/27/22 08:00 11/27/22 11:22 36.9 C 97 H 17 11/27/22 09:48 115 H 95 H 97 H 11/27/22 07:59 36.8 C 99 H 17 11/27/22 07:28 98 H 11/27/22 06:18 97 H 20 11/27/22 02:26 36.7 C 94 H 16 Resp Resp Resp BP Pulse Ox Pulse Ox Pulse Ox 11/27/22 12:19 94 11/27/22 08:00 11/27/22 11:22 111/71 97 11/27/22 09:48 24 20 22 90 92 11/27/22 07:59 96/58 L 99 11/27/22 07:28 11/27/22 06:18 92 11/27/22 02:26 101/56 L 97 Pulse Ox O2 Del Method O2 Flow Rate O2 Flow Rate O2 Flow Rate 11/27/22 12:19 Nasal Cannula 1 11/27/22 08:00 Nasal Cannula 2 11/27/22 11:22 Nasal Cannula 2 11/27/22 09:48 85 L 1 1 11/27/22 07:59 Nasal Cannula 2 11/27/22 07:28 11/27/22 06:18 Nasal Cannula 2 11/27/22 02:26 Nasal Cannula 2 all noted and reviewed including below
--- NOTE | 2022-11-27 14:05 | Discharge Summary ---
Discharge Summary Date of Service November 27, 2022 Notes For Next Care Provider Please repeat BMP, Magnesium on ff up visit with PCP next week. Please follow up pathology result from biopsy done during bronchoscopy. Medication Changes From Visit Lasix increased to 20mg BID // and daily other days. Admission HPI Per Admitting Provider 77-year-old male with past medical significant for hyperlipidemia, COPD, pleural effusion, dyspnea on exertion, recurrent pneumonia, chronic diastolic CHF, primary open-angle glaucoma both eyes, presents with fevers going on for last week with shortness of breath on exertion, weakness, fatigueand cough bringing a slight of whitish phlegm.Was prescribed doxycycline as outpatient took for last 3 days but not improving so came to the ER. Patient states this is fourth episode in last 6 months. Lost about 40 pounds weight in last 1 year. Had pleural effusions and followed with [facility], etiology unclear as per pulmonary and plan for bronchoscopy if pleural effusions persist. Patient states today had temperature 100.7 degrees. Appetite is down. Denies any headache, no neck pain, no chest pain, no back pain, no abdominal pain and no pain in limbs. Could not ambulate far because of fatigue, weakness and shortness of breath. Denies any blurred visions. Has some runny nose. No sore throat. No difficulty swallowing. No painful swallowing. No nausea. Normal bowel and bladder movements. Currently resting comfortably and hemodynamically stable Past medical as mentioned above Past surgical history colonoscopy, tonsillectomy, vasectomy Social history quit smoking 2012. Smoked 1.5 packs a day for 40 years. Alcohol 1 beer a week. No drug use Family history Sister has cancer Sister has diabetes Admission Exam Per Admitting Provider General- Not in distress Head- atraumatic Eyes- PERRL ENT- oropharynx clear Neck- supple, no JVD, no adenopathy, carotids +2/2, no bruits appreciated Lungs- clear to auscultation no wheezing, mild bibasilar crackles present Heart- regular rate and rhythm; no murmur, no gallop. Abdomen- normal bowel sounds, soft, nontender, no distension. Extremities- no pretibial edema, no erythema Neuro- alert, oriented x 3; PERRL, no facial palsy; no dysarthria;non focal. Skin- warm & dry Principal Dx & Hospital Course #1 = Principal Diagnosis (1) Pleural effusion: (2) Chronic diastolic heart failure: (3) Hyponatremia: per previous hospitalist service notes with addendum: 77-year-old male with past medical significant for hyperlipidemia, COPD, pleural effusion, dyspnea on exertion, recurrent pneumonia, chronic diastolic CHF, primary open-angle glaucoma both eyes, presents with fevers going on for last week with shortness of breath on exertion, weakness, fatigue and cough bringing a slight of whitish phlegm .Was prescribed doxycycline as outpatient took for last 3 days but not improving so came to the ER. Reports recurrent pneumonia Has had thoracentesis in the past History of pleural effusions. Etiology unclear as per pulmonary plan for bronchoscopy if pleural effusions persist CTA Chest showed bilateral pleural effusion (Left >Right), widespread cons olidative opacities, centrilobular emphysema, extensive calcifications in LV myocardium. On presentation, labs were notable for BNP 1239, Mg 1.5, Na 128, Hb 10.7 BILATERAL PLEURAL EFFUSION LIKELY SECONDARY TO ACUTE ON CHRONIC DIASTOLIC CHF Was on cefepime and doxycycline for possible multifocal pneumonia Antibiotics discontinued at this time per Pulm With elevated BNP, myocardial calcification noted on CTA chest, EKG showing TWI in aVL, II, lateral leads; Cardiomyopathy is likely contributing to pleural effusion Outpatient TTE from 11/2021 noted EF 60-64%, mild conc LV, large Lt pleural eff usion and possible ascites with cardiac displacement. No significant valvular pathology TTE today noted diffuse myocardial calcification affecting interventricular septum and basal segments, pattern not typical for that expected with scar related to ischemic cardiomyopathy. Also hypokinesis of basal inferoseptum, EF 55-60%, severe mitral calcification, mild dil LA, mild pulm HTN PASP 40, Grade III diastolic dysfunction Cardiology evaluation appreciated Extensive myocardial calcification may be due to previous myocardial infarction or late sequela from myocarditis with some restrictive physiology Chronic diastolic heart failure given IV lasix 20mg daily Thoracentesis (left) done by Pulm on 11/23/22 with 1500cc removed Fluid analysis is transudative Fluid cultures negative so far s/p Bronchoscopy: with bronchoalveolar lavage, transbronchial biopsies, and TBNA of mediastinal lymph nodes. Await final path. The patient can follow-up with [facility] pulmonary to review these results. Mild respiratory acidosis with CO2 around 50. Correlation with outpatient PFTs recommended. Consideration for overnight polysomnography might be appropriate and is deferred to the patient's [facility] pulmonary group. Discharge plan: increase Lasix to 20mg bid //, and daily other days per Cardiology Mg and K supplements 2 step exercise test: needs 1 L o2 via NC at all times HYPONATREMIA Likely from vol overload Na was 128 on presentation Serum osm 270 Uosm 470, Vanna 81 Na improved to 133 Nephro consulted D/C home today ff up with PCP in 1 week Cardiology in 1-2 weeks Discharge Exam General- oriented x 3, not in distress, speaks in sentences with no effort or accessory muscle use Eyes- anicteric Neck- no JVD Lungs- mild rales at the bases no wheezing Heart- normal rate, regular rhythm; no murmurs Abdomen- normal bowel sounds, nondistended, soft, nontender Extremities- no pretibial edema, no calf tenderness Neuro- alert, oriented x 3; no gross focal neurologic deficits Skin- warm & dry Updated Medication List Medication Instructions Recorded Confirmed Type albuterol sulfate 90 mcg/actuation 2 puff inhalation Q4H PRN 11/22/22 11/22/22 History aerosol inhaler COUGH/SHORTNESS OF BREATH/WHEEZING cholecalciferol (vitamin D3) 25 25 mcg PO DAILY 11/22/22 11/22/22 History mcg (1,000 unit) capsule (Vitamin D3) clobetasol 0.05 % topical cream 1 applic topical BID PRN Itching 11/22/22 11/22/22 History doxycycline hyclate 100 mg capsule 100 mg PO BID 11/22/22 11/22/22 History fluticasone propionate 50 1 spray intranasal DAILY 11/22/22 11/22/22 History mcg/actuation nasal spray,suspension guaifenesin 600 mg tablet, 600 mg PO Q12H 11/22/22 11/22/22 History extended release 12 hr ipratropium 0.5 mg-albuterol 3 mg 3 ml inhalation Q4H PRN Wheezing 11/22/22 11/22/22 History (2.5 mg base)/3 mL nebulization soln latanoprost 0.005 % eye drops 1 drp OPB PM 11/22/22 11/22/22 History levobunolol 0.5 % eye drops 1 drp OPB BID 11/22/22 11/22/22 History xivbrmqryfgp-rsfuazhd-jklnil 1 tab PO DAILY 11/22/22 11/22/22 History tablet (Multivitamin 50 Plus tablet) ondansetron HCl 4 mg tablet 4 mg PO Q8H PRN NAUSEA/VOMITING 11/22/22 11/22/22 History psyllium husk 0.4 gram capsule 0.4 g PO DAILY 11/22/22 11/22/22 History (Fiber (psyllium husk)) sertraline 50 mg tablet 50 mg PO DAILY 11/22/22 11/22/22 History sildenafil 100 mg tablet 100 mg PO DAILY PRN Sexual Activity 11/22/22 11/22/22 History simvastatin 40 mg tablet 40 mg PO HS 11/22/22 11/22/22 History triamcinolone acetonide 0.1 % 1 applic topical DAILY PRN Itching 11/22/22 11/22/22 History topical cream furosemide 20 mg tablet (Lasix) 20 mg PO UD #60 tabs 11/27/22 Rx magnesium oxide 400 mg (241.3 mg 400 mg PO BID 30 days #60 tabs 11/27/22 Rx magnesium) tablet potassium chloride 10 mEq 10 meq PO DAILY 30 days #30 tabs 11/27/22 Rx tablet,extended release(part/cryst) Hospital Stay Data Consultations 11/23/22 08:00 Consult Cardiology Routine Consult Pulmonology Routine 11/24/22 08:02 Consult Nephrology Routine Procedures Performed Operation Date: 11/26/22 10:00 Actual Procedures p Bronchoscopy Radiology - El Peraza MD p Endobronchial Ultrasound (EBUS) - El Peraza MD Diagnostic Imagining Performed Laboratory Results WBC 8.92 K/ul (4.8-10.8) 11/27/22 09:10 RBC 2.90 M/uL (4.70-6.10) L 11/27/22 09:10 Hgb 9.5 g/dl (14.0-18.0) L 11/27/22 09:10 POC Hgb 9.9 g/dl (14.0-18.0) L 11/25/22 12:33 Hct 27.8 % (42.0-52.0) L 11/27/22 09:10 POC Hct 29 % (42-52) L 11/25/22 12:33 MCV 95.9 fL (80.0-100.0) 11/27/22 09:10 MCH 32.8 pg (25.0-34.0) 11/27/22 09:10 MCHC 34.2 g/dL (32.0-36.0) 11/27/22 09:10 RDW Std Deviation 47.3 fL (36.4-46.3) H 11/27/22 09:10 RDW Coeff of Lizeth 13.4 % (11.5-14.5) 11/27/22 09:10 Plt Count 336 K/uL (130-400) 11/27/22 09:10 MPV 9.6 fL (9.4-12.4) 11/27/22 09:10 Immature Gran % (Auto) 0.3 % 11/23/22 05:11 Neut % (Auto) 82.2 % 11/23/22 05:11 Lymph % (Auto) 8.8 % 11/23/22 05:11 [place]ell % (Auto) 8.0 % 11/23/22 05:11 Eos % (Auto) 0.4 % 11/23/22 05:11 Baso % (Auto) 0.3 % 11/23/22 05:11 Neut # (Auto) 5.79 K/uL (1.40-6.50) 11/23/22 05:11 Lymph # (Auto) 0.62 K/uL (1.20-3.40) L 11/23/22 05:11 [place] # (Auto) 0.56 K/uL (0.11-0.59) 11/23/22 05:11 Eos # (Auto) 0.03 K/uL (0.00-0.50) 11/23/22 05:11 Baso # (Auto) 0.02 K/uL (0.00-0.20) 11/23/22 05:11 Immature Gran # (Auto) 0.02 K/uL (0.01-0.20) 11/23/22 05:11 PT 12.4 Seconds (9.0-12.0) H 11/22/22 17:34 INR 1.1 (0.9-1.1) 11/22/22 17:34 Sample Site L Radial 11/25/22 12:33 POC pH 7.45 (7.35-7.45) 11/25/22 12:33 POC pCO2 51 mmHg (35-46) H 11/25/22 12:33 POC pO2 91 mmHg (80-95) 11/25/22 12:33 POC HCO3 36 arnold/L (19-24) H 11/25/22 12:33 POC Total CO2 37 mmol/L (24-31) H 11/25/22 12:33 POC Base Excess 12.0 arnold/L (-9-1.8) H 11/25/22 12:33 ABG pH 7.43 (7.35-7.45) 11/26/22 15:17 ABG pH (Temp Correct) 7.454 (7.35-7.45) H 11/25/22 12:33 ABG pCO2 56 mmHg (35-46) H 11/26/22 15:17 ABG pCO2 (Temp Corrct 51 mmHg (35-46) H 11/25/22 12:33 ABG pO2 58 mmHg (80-95) L 11/26/22 15:17 POC ABG pO2 at Pt Temp 91 11/25/22 12:33 ABG HCO3 37 mmol/L (19-24) H 11/26/22 15:17 POC ABG O2 Sat 97.0 % (90-95) H 11/25/22 12:33 ABG O2 Saturation 89.7 % (90-95) L 11/26/22 15:17 ABG Base Excess 10.7 mEq/L (-9-1.8) H 11/26/22 15:17 Low Test Pos (Pos) 11/26/22 15:17 Oxygen Given 13L O2 11/26/22 15:17 O2 Delivery Device Cannula 11/25/22 12:33 POC Sodium 129 mmol/L (135-144) L 11/25/22 12:33 Sodium 134 mmol/L (136-145) L 11/27/22 09:10 POC Potassium 3.8 mmol/L (3.3-5.0) 11/25/22 12:33 Potassium 4.0 mmol/L (3.5-5.1) 11/27/22 09:10 Chloride 93 mmol/L (98-107) L 11/27/22 09:10 Carbon Dioxide 36 mmol/L (21-32) H 11/27/22 09:10 Anion Gap 5 (3-11) 11/27/22 09:10 BUN 11 mg/dl (6-23) 11/27/22 09:10 Creatinine 0.53 mg/dl (0.6-1.4) L 11/27/22 09:10 Est Cr Clr Drug Dosing 100.9 ml/min 11/27/22 09:10 Est GFR ( Amer) 117.5 ml/min 11/27/22 09:10 Est GFR (Non-Af Amer) 101.3 ml/min 11/27/22 09:10 BUN/Creatinine Ratio 20.8 (10-20) H 11/27/22 09:10 Glucose 158 mg/dl (70-99(Fasting)) H 11/27/22 09:10 Osmolality 270 mOsm/kg (280-300) L 11/23/22 07:52 Calcium 8.9 mg/dl (8.6-10.3) 11/27/22 09:10 Phosphorus 2.8 mg/dl (2.5-4.9) 11/27/22 09:10 Magnesium 1.6 mg/dl (1.7-2.4) L 11/27/22 09:10 Total Bilirubin 0.5 mg/dl (0.2-1.0) 11/22/22 17:34 AST 41 U/L (13-39) H 11/22/22 17:34 ALT 34 U/L (7-52) 11/22/22 17:34 Alkaline Phosphatase 153 U/L (34-104) H 11/22/22 17:34 Lactate Dehydrogenase 155 U/L (86-244) 11/23/22 11:04 Troponin I High Sens 22.8 pg/ml (0-20) H 11/23/22 11:04 B-Natriuretic Peptide 1239 pg/ml (0-100) H 11/22/22 17:34 Total Protein 6.6 gm/dl (6.0-8.3) 11/23/22 11:04 Albumin 3.5 gm/dl (3.4-5.0) 11/22/22 17:34 Globulin 3.1 gm/dl (2.5-4.0) 11/22/22 17:34 Albumin/Globulin Ratio 1.1 (0.9-2) 11/22/22 17:34 25-OH Vitamin D Total 45.9 ng/ml (30-100) 11/25/22 05:36 Procalcitonin 0.11 ng/ml (0-0.5) 11/23/22 07:52 PTH Intact 60.6 pg/ml (12.0-88.0) 11/25/22 05:36 Urine Color Yellow 11/22/22 20:20 Urine Appearance Clear (Clear) 11/22/22 20:20 Urine pH 6.5 (4.5-7.5) 11/22/22 20:20 Ur Specific [place] > 1.045 (1.000-1.030) H 11/22/22 20:20 Urine Protein Trace (Negative) H 11/22/22 20:20 Urine Glucose (UA) Negative (Negative) 11/22/22 20:20 Urine Ketones Negative (Negative) 11/22/22 20:20 Urine Blood Negative (Negative) 11/22/22 20:20 Urine Nitrite Negative (Negative) 11/22/22 20:20 Urine Bilirubin Negative (Negative) 11/22/22 20:20 Urine Urobilinogen Negative (Negative) 11/22/22 20:20 Ur Leukocyte Esterase Negative (Negative) 11/22/22 20:20 Urine WBC (Auto) 1-5 /hpf (0-5) 11/22/22 20:20 Urine RBC (Auto) 0-4 /hpf (0-4) 11/22/22 20:20 U Hyaline Cast (Auto) 0 /lpf (0-5) 11/22/22 20:20 U Epithel Cells (Auto) 0-5 /lpf (0-5) 11/22/22 20:20 Urine Bacteria (Auto) Negative (Negative) 11/22/22 20:20 Urine Osmolality 407 mOsm/kg (500-800) L 11/23/22 15:39 Ur Random Sodium 81 mmol/L 11/23/22 15:39 Fluid Neutrophils % 23 % 11/26/22 Unknown Fluid Lymphocytes % 12 % 11/26/22 Unknown Fluid Eosinophils % 1 % 11/26/22 Unknown Fl Monocyt/Macrophag % 64 % 11/26/22 Unknown Fluid Meso/Macro/Cabell % 13 % 11/23/22 Unknown Fluid Comment 11/26/22 Unknown Pleural Fluid Source Left Lung 11/23/22 Unknown Pleural Color Raquel 11/23/22 Unknown Pleural Appearance Hazy 11/23/22 Unknown Pleural pH 7.48 (7.3-7.4) H 11/23/22 Unknown Pleural WBC (Auto) 335 /uL 11/23/22 Unknown Pleural RBC (Auto) 08304 /uL 11/23/22 Unknown Pleural Total Protein < 3.0 gm/dl 11/23/22 Unknown Pleural LDH 81 U/L 11/23/22 Unknown Pleural Glucose 105 mg/dl 11/23/22 Unknown Pleural Amylase 23 U/L 11/23/22 Unknown Nasal Screen MRSA (PCR) Negative (Negative) 11/23/22 11:20 Random Vancomycin 9.7 mcg/ml (10-20) L 11/24/22 05:54 Adenovirus (PCR) Not Detected (NotDetected) 11/22/22 Unknown B. pertussis DNA (PCR) Not Detected (NotDetected) 11/22/22 Unknown B.parapertussis DNA PCR Not Detected (NotDetected) 11/22/22 Unknown C. pneumoniae DNA (PCR) Not Detected (NotDetected) 11/22/22 Unknown Coronavirus OC43 (PCR) Not Detected (NotDetected) 11/22/22 Unknown Coronavirus HKU1 (PCR) Not Detected (NotDetected) 11/22/22 Unknown Coronavirus 229E (PCR) Not Detected (NotDetected) 11/22/22 Unknown SARS-CoV-2 (PCR) Not Detected (NotDetected) 11/22/22 Unknown Coronavirus NL63 (PCR) Not Detected (NotDetected) 11/22/22 Unknown Human Metapneumovir PCR Not Detected (NotDetected) 11/22/22 Unknown Influenza Type A (PCR) Not Detected (NotDetected) 11/22/22 Unknown Influenza Type B (PCR) Not Detected (NotDetected) 11/22/22 Unknown Urine Legionella Ag SEE NOTE 11/23/22 11:49 M. pneumoniae (PCR) Not Detected (NotDetected) 11/22/22 Unknown Parainfluenza 1 (PCR) Not Detected (NotDetected) 11/22/22 Unknown Parainfluenza 2 (PCR) Not Detected (NotDetected) 11/22/22 Unknown Parainfluenza 3 (PCR) Not Detected (NotDetected) 11/22/22 Unknown Parainfluenza 4 (PCR) Not Detected (NotDetected) 11/22/22 Unknown RSV (PCR) Not Detected (NotDetected) 11/22/22 Unknown Entero/Rhino (PCR) Not Detected (NotDetected) 11/22/22 Unknown Impressions Abdomen/Pelvis CT 11/22/22 17:21 Exam(s): CT ABDOMEN + PELVIS With Contrast IV Amt: 117ml optiray 350 EXAM: CT Abdomen and Pelvis With Intravenous Contrast CLINICAL HISTORY: Reason for exam: 40 wt loss, SOB, effusions, decreased appetite. TECHNIQUE: Axial computed tomography images of the abdomen and pelvis with intravenous contrast. CTDI is 37.01 mGy and DLP is 1030.98 mGy-cm. Automated exposure control was utilized for the study. A dose lowering technique was utilized adhering to the principles of ALARA. CONTRAST: Patient received 117ml optiray 350 of IV contrast COMPARISON: No relevant prior studies available. FINDINGS: Chest findings are reported separately. Liver, gallbladder, spleen, pancreas, and adrenal glands are unremarkable. Kidneys enhance symmetrically, without hydronephrosis or significant perinephric stranding. There is extensive aortoiliac and mesenteric arterial atherosclerosis. There is no aortic aneurysm. 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 There is no adenopathy. There is no free air or significant ascites. Trace perisplenic ascites is noted. There is no bowel obstruction or inflammatory change. Appendix is not visualized with certainty. Urinary bladder and prostate are unremarkable. There are age-related degenerative changes of the spine and hips. There are no acute osseous findings. IMPRESSION: 1. 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 Bowel shows no direct evidence of ischemic change. 2. Otherwise, no acute or significant intra-abdominal findings. 3. Please refer to CT chest of the same date, reported separately. Electronically signed by: Jero Leong M.D. 11/22/22 19:20 PM Chest CTA 11/22/22 17:21 Exam(s): CTA CHEST IV Amt: 117ml optiray 350 EXAM: CT Angiography Chest With Intravenous Contrast CLINICAL HISTORY: Reason for exam: SOB, pleural effusion, ? mass, PE. TECHNIQUE: Axial computed tomographic angiography images of the chest with intravenous contrast. CTDI is 37.01 mGy and DLP is 1030.98 mGy-cm. Automated exposure control was utilized for the study. A dose lowering technique was utilized adhering to the principles of ALARA. MIP reconstructed images were created and reviewed. COMPARISON: No relevant prior studies available. FINDINGS: Thyroid gland is unremarkable. There are mildly enlarged multicompartment mediastinal lymph nodes. No hilar or axillary lymphadenopathy is visualized. Thoracic aorta is calcified but normal in caliber. There is no dissection. There is adequate pulmonary artery opacification. Main pulmonary artery is normal in caliber. There is no evidence of acute pulmonary embolism. There is a moderate loculated left pleural effusion. Extensive round atelectasis is present in the lingula and right lower lobe. There is a small loculated right pleural effusion with round atelectasis in the right lower lobe. Additionally, there are patchy consolidative opacities throughout the lungs, located in the bilateral upper lobes, bilateral lower lobes, and right middle lobe. Some consolidations are subpleural in location, while others are peribronchovascular. There is a background of centrilobular emphysema. There is no pneumothorax. Heart size is normal. Coronary arteries are calcified. There is no significant RV strain. Extensive myocardial calcifications are present within the left ventricle. There is no acute fracture or dislocation. IMPRESSION: 1. No evidence of acute pulmonary embolism. 2. Widespread and patchy bilateral subpleural and peribronchovascular consolidative opacities concerning for multifocal pneumonia. Imaging follow-up after treatment completion recommended to exclude underlying malignancy. 3. Loculated pleural effusions, moderate on the left and mild on the right. Multifocal regions of round atelectasis bilaterally. 4. Centrilobular emphysema. 5. Mild mediastinal adenopathy, possibly reactive. 6. Extensive calcifications throughout the left ventricular myocardium, nonspecific, considerations include post-infarction changes and myocarditis. Clinical correlation is recommended. Consider further characterization with echocardiography. Electronically signed by: Jero Leong M.D. 11/22/22 19:15 PM Chest X-Ray 11/26/22 10:41 XR chest 1V portable CLINICAL HISTORY: Post Bronchoscopy TECHNIQUE: Single frontal radiograph of the chest was obtained. Comparison: Comparison is made to chest radiograph 11/26/2022 FINDINGS: No lines and tubes are seen. The cardiomediastinal silhouette is normal. Multifocal airspace opacities are seen. Moderate left and small right pleural effusions are seen. IMPRESSION: Moderate left and small right pleural effusions are seen. Multifocal airspace opacities are again noted. No evidence of pneumothorax in this patient status post bronchoscopy. ACT 112: Negative or not required by law. Electronically signed by: Gideon Lee M.D. 11/26/2022 12:12 PM Pending Results Patient Have Any Pending Studies at Discharge: No Discharge Instructions Given to Patient (Per Discharging Provider) PLEASE REFER TO YOUR NEW MEDICATION LIST AND FOLLOW INSTRUCTIONS CAREFULLY. YOUR NEW MEDICATIONS INCLUDE: Lasix increased to 20mg BID mon/fri/fri, and daily other days. Potassium and Magnesium supplements. PLEASE CALL YOUR PRIMARY CARE PHYSICIAN OR RETURN TO THE ER IF WITH WORSENING OF SYMPTOMS, INCLUDING shortness of breath, chest pain, leg swelling, cough, fever/chills, etc FOLLOW UP WITH PRIMARY CARE PHYSICIAN OUTLINED ABOVE. FOLLOW UP WITH RESEARCH ASSISTANT PROFESSOR DR. CARMONA IN 1-2 WEEKS. Total Time Total Time Spent Total Time Spent (In Minutes): >30 minutes
--- NOTE | 2022-11-27 18:35 | Cardiology Progress Note ---
Date of Service November 27, 2022 Assessment & Plan (1) Pleural effusion: (2) Multifocal pneumonia: (3) HFrEF (heart failure with reduced ejection fraction): Plan Discharged on furosemide 40 mg Mondays, Wednesdays, and Fridays alternate 20 mg the remaining days of the week. Outpatient pulmonary follow-up with regards to final results of bronchoscopy (bronchoalveolar lavage, transbronchial biopsies, and TBNA of mediastinal lymph nodes. Await final path.). Admission and Anticipated Discharge Date Admission Date: November 22, 2022 Subjective Patient seen in cardiology follow-up. Eager for discharge. Telemetry revealed sinus rhythm in the range of 90 to 100 bpm with occasional PACs. Physical Exam Constitutional: + thin and + cachectic Respiratory: Auscultation: + diminished lung sounds (Decreased breath sounds throughout the base and mid left lung field, right ); no rales and no wheezes Cardiovascular: Rate/Rhythm: regular rhythm Heart Sounds: + murmur (1/6 murmur) Extremities: no edema Gastrointestinal (Abdomen): normal bowel sounds, soft, nontender, no hepatosp lenomegaly Neurologic: PERRL, EOMI, accommodation nl, no face palsy, no dysarthria Results & Data Vital Signs (Past 12 Hours) Vital Signs Temp Pulse Pulse Pulse Pulse Pulse Resp 11/27/22 15:27 92 H 11/27/22 14:09 36.9 C 90 18 11/27/22 12:19 90 18 11/27/22 08:00 11/27/22 11:22 36.9 C 97 H 17 11/27/22 09:48 115 H 95 H 97 H 11/27/22 07:59 36.8 C 99 H 17 11/27/22 07:28 98 H Resp Resp Resp BP BP Pulse Ox Pulse Ox 11/27/22 15:27 11/27/22 14:09 111/71 103/66 94 11/27/22 12:19 94 11/27/22 08:00 11/27/22 11:22 111/71 97 11/27/22 09:48 24 20 22 90 11/27/22 07:59 96/58 L 99 11/27/22 07:28 Pulse Ox Pulse Ox O2 Del Method O2 Flow Rate O2 Flow Rate O2 Flow Rate 11/27/22 15:27 11/27/22 14:09 11/27/22 12:19 Nasal Cannula 1 11/27/22 08:00 Nasal Cannula 2 11/27/22 11:22 Nasal Cannula 2 11/27/22 09:48 92 85 L 1 1 11/27/22 07:59 Nasal Cannula 2 11/27/22 07:28
[2022-11-30 18:12] LABS: Coccidioides Ab, ID Negative (Negative); Cryptococcal Antigen Not Detected (Not Detected); Source Serum
== END 2022-11-27 16:17 | disposition home or self-care (01) | DRG 264 ==
LOC: ED 16:55 → SUATTDRO 20:56 → EDINP 20:56 → 2N 11-23

== ENCOUNTER 2022-12-23 16:06 | Inpatient (IN) ==
--- NOTE | 2022-12-23 16:14 | ED Triage Note ---
Date of Service December 23, 2022 History of Present Illness This patient was briefly evaluated while in triage. An abbreviated physical exam was performed. This patient is a 77-year-old Male who presents to the ED for evaluation tachycardia and low BP at nephrology today -->EKG showed Afib with RVR new per patient admitted for pneumonia earlier in November-has been feeling poorly for the last month Hx of CHF, COPD Also at pulmonology today, told to wear oxygen Physical Exam GENERAL: NAD in a wheelchair, hypotensive, sat 98% on RA CARDIOVASCULAR: irregular rate RESPIRATORY: diminished breath sounds throughout Initial orders for labs and / or imaging were placed and patient was placed in the waiting area until a bed is available. Please see further documentation for the full ED course.
[2022-12-23 16:55] LABS: Basophils # (auto) 0.02 K/uL (0.00-0.20); Basophils % (auto) 0.2 %; Eosinophils # (auto) 0.01 K/uL (0.00-0.50); Eosinophils % (auto) 0.1 %; Hematocrit (blood only) 30.6 % (42.0-52.0); Hemoglobin 9.7 g/dl (14.0-18.0); Immature Granulocytes # (auto) 0.03 K/uL (0.01-0.20); Immature Granulocytes % (auto) 0.3 %; Lymphocytes # (auto) 0.69 K/uL (1.20-3.40); Lymphocytes % (auto) 7.1 %; Mean Corpuscular Hemoglobin 31.3 pg (25.0-34.0); Mean Corpuscular Hgb Conc 31.7 g/dL (32.0-36.0); Mean Corpuscular Volume 98.7 fL (80.0-100.0); Mean Platelet Volume 10.2 fL (9.4-12.4); Monocytes # (auto) 0.33 K/uL (0.11-0.59); Monocytes % (auto) 3.4 %; Neutrophils # (auto) 8.67 K/uL (1.40-6.50); Neutrophils % (auto) 88.9 %; Platelet Count 336 K/uL (130-400); RDW Coefficient of Variation 16.2 % (11.5-14.5); White Blood Count 9.75 K/ul (4.8-10.8)
[2022-12-23 17:11] LABS: Alanine Aminotransferase 20 U/L (7-52); Albumin Globulin Ratio 0.9 (0.9-2); Albumin Level 3.1 gm/dl (3.4-5.0); Alkaline Phosphatase 87 U/L (34-104); Anion Gap 6 (3-11); Aspartate Aminotransferase 18 U/L (13-39); BUN Creatinine Ratio 24.8 (10-20); Bilirubin,Total 0.5 mg/dl (0.2-1.0); Blood Urea Nitrogen 25 mg/dl (6-23); Calcium 9.3 mg/dl (8.6-10.3); Carbon Dioxide 33 mmol/L (21-32); Chloride 98 mmol/L (98-107); Est GFR (African American) 82.2 ml/min; Est GFR (Non-African American) 70.9 ml/min; Globulin 3.5 gm/dl (2.5-4.0); Glucose 121 mg/dl (70-99(Fasting)); Potassium 4.3 mmol/L (3.5-5.1); Sodium 137 mmol/L (136-145); Total Protein 6.6 gm/dl (6.0-8.3)
[2022-12-23] MEDS ORDERED: METOPROLOL TARTRATE 1 MG/ML VIAL IV STA ×2 (17:29→18:06)
[2022-12-23] MEDS ORDERED: SODIUM CHLORIDE 0.9% 1,000 ML IV ONE (17:29)
[2022-12-23 17:32] LABS: Troponin I High Sensitivity 29.6 pg/ml (0-20)
--- NOTE | 2022-12-23 17:32 | Emergency Department Note ---
Impression & Plan Atrial fibrillation with rapid ventricular response, Malaise and fatigue ED Provider Note Name: CLARE COCHRAN Age: 77 Sex: M Arrives Via: Walk-In Informant: Patient ED Provider: Gaurav Natarajan MD Chief Complaint: Weakness Impression: As per impression above Medical Decision Making: Pleasant 77-year-old gentleman arrives for evaluation of generalized malaise and fatigue. He was recently hospitalized for multifocal pneumonia and some congestive heart failure. Since getting home he has had worsening decline in his activity. Was seen by nephrology today who advised him to come to ER due to new onset A-fib RVR. On arrival he is in A-fib RVR. He is dry cracked mucosa he appears dehydrated by exam though his lungs are poor. He is tolerating 1 L nasal cannula quite well though. In the setting of new onset A-fib mildly low blood pressures and dehydration by exam I did feel that giving him a liter of fluid would be indicated with the known knowledge that he has congestive heart failure and risk of overload. and he are on board with this. In addition he was given 2 rounds of IV Lopressor. This did bring his heart rate from the 130s to right around 100. Patient is looking a bit better and does feel slightly better though still quite weak. In the setting of new onset A-fib I do think hospitalization is indicated. He is not severely short of breath he is not having chest pain thing at this point I would hold off on CT imaging of his chest as PE seems less likely. At this point I do not feel he is septic and there is no clear evidence of infectious etiology that is doing this. Patient and are comfortable with plan for hospitalization and thus hospitalist consulted for further management. Will defer anticoagulation to hospitalist. Prior Medical Record and Triage/Nursing Notes reviewed by Me External chart reviewed by me including recent hospitalization records and discharge summaries. Differentials:Premature contractions, electrolyte abnormality, cardiac dysrhythmia, thyroid dysfunction, pulmonary embolism, infection, gastrointestinal, as well as other pathologies. Vital Signs: reviewed and remarkable for tachycardia and mild low blood pressures Interventions: Normal saline bolus 1 L IV, Lopressor 5 mg IV x2 Labs:Reviewed and remarkable for mildly elevated troponin but this is somewhat his baseline. Elevated BNP though also at baseline. Other labs reviewed by me as well see chart Imaging:Reviewed chest x-ray as per my interpretation. Indication weakness. Patient has multiple patchy areas over bilateral lungs mildly improved from previous. He has a left pleural effusion. There is evidence of congestive failure which appears chronic compared to old chest x-ray. EKG:As per my interpretation. Indication malaise/fatigue. Atrial fibrillation with rapid ventricular response at 122 bpm QTc of 467. There is no overt ischemia. When compared to previous EKG of November 24, 2022 he is no longer in sinus rhythm. Cardiac/Tele Monitoring: Cardiac Monitoring: An Order was placed for continuous cardiac monitoring. The monitor shows a rate of 110 with a atrial fibrillation with rapid ventricular response. Consults:Hospitalists Plan: Disposition:Hospitalization. Condition: Fair History of Present Illness:77-year-old gentleman arrives for evaluation of weakness. Patient was seen at nephrology office and sent here for evaluation as he was noted to be in A-fib RVR. Patient notes the last 1 to 2 weeks worsening weakness fatigue and no "pep in his step". States he has increasing weakness the last few days with no appetite. Denies any falls, trauma, injuries. Denies any specific shortness of breath or chest pain. Does note he gets short of breath with exertion but that is been ongoing for some time. He was recently hospitalized for multifocal pneumonia with COPD exacerbation in the setting of known CHF. He has been fluid restricting as well as using Lasix. notes he really has not taken much fluids or otherwise oral intake the last few days. Patient notes he is still having bowel movements and urinating. Denies any ab dominal pain, vomiting, fevers, chills, back pain, leg swelling, rashes or other concerning signs or symptoms. Past Medical History:COPD, pneumonia, CHF, effusions Home Medications:See Below Allergies:nkda Vitals:Blood Pressure: 95/76, Pulse 125, RR 20, T 37.0C, O2 95% on 1 L NC Physical Exam: GENERAL: Patient is unwell/dehydrated appearing and in mild distress. RESPIRATORY: Mild dyspnea without tachypnea. Some crackles throughout all lung lopez other than decreased breath sounds throughout much of the left lung field. CARDIOVASCULAR: Regular rate and rhythm.No murmurs, rubs, gallops appreciated. GASTROINTESTINAL: Abdomen soft, non-tender, no peritonitis.Bowel sounds positive.No masses appreciated. BACK: No midline tenderness, no CVA tenderness EXTREMITIES: Normal motion all extremities, no cyanosis, no edema. NEUROLOGIC: Alert and oriented, no acute motor or sensory deficits, no focal weakness, cranial nerves grossly intact. SKIN: No rash, no jaundice, no diaphoresis. PSYCH: Appropriate GCS: 15 ED Course: Times/Reassessments: Multiple repeat evaluations. Heart rate has come down sl ightly though still bumped up above 100 and A-fib RVR. He has tolerated the 1 L normal saline without any issues at this time. 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 Recurrent pneumonia Weight loss 22 lb 10/2021 - 10/2022 based on [facility] clinic VS; 13% of TBW; weighed 180 lb Nov 2020 [facility] Surgical History History of thoracentesis x 3 at [facility] x 1 [facility] 08/2022 Family History Sister Cancer Diabetes Social History Smoking Status: Never smoker Tobacco Type: Cigarettes Hx Alcohol Use: No Hx Substance Use: No Preferred Language: Kittitian Communication Ability: Effective Information Systems Director Required: No Beliefs That Will Affect Care: None Current Living Situation: Spouse Other Information That Helps Us Care for You: No Feels Safe at Home: Yes Safety Concerns: Feels Safe At This Time Assistive Devices: Denture - Upper, Denture - Lower, Glasses and Hearing Aid - Bilateral Allergies Allergies Allergy/AdvReac Type Severity Reaction Status Date / Time No Known Allergies Allergy Verified 11/22/22 18:33 Home Meds Home Medications Medication Instructions Recorded Confirmed albuterol sulfate 90 mcg/actuation 2 puff inhalation Q4H PRN 11/22/22 12/23/22 aerosol inhaler COUGH/SHORTNESS OF BREATH/WHEEZING cholecalciferol (vitamin D3) 25 25 mcg PO DAILY 11/22/22 12/23/22 mcg (1,000 unit) capsule (Vitamin D3) clobetasol 0.05 % topical cream 1 applic topical BID PRN Itching 11/22/22 12/23/22 fluticasone propionate 50 1 spray intranasal DAILY 11/22/22 12/23/22 mcg/actuation nasal spray,suspension guaifenesin 600 mg tablet, 600 mg PO Q12H 11/22/22 12/23/22 extended release 12 hr ipratropium 0.5 mg-albuterol 3 mg 3 ml inhalation Q4H PRN Wheezing 11/22/22 1 (2.5 mg base)/3 mL nebulization soln latanoprost 0.005 % eye drops 1 drp OPB PM 11/22/22 12/23/22 levobunolol 0.5 % eye drops 1 drp OPB BID 11/22/22 12/23/22 [id number] 1 tab PO DAILY 11/22/22 12/23/22 tablet (Multivitamin 50 Plus tablet) ondansetron HCl 4 mg tablet 4 mg PO Q8H PRN NAUSEA/VOMITING 11/22/22 12/23/22 psyllium husk 0.4 gram capsule 0.4 g PO DAILY 11/22/22 12/23/22 (Fiber (psyllium husk)) sertraline 50 mg tablet 50 mg PO DAILY 11/22/22 12/23/22 sildenafil 100 mg tablet 100 mg PO DAILY PRN Sexual Activity 11/22/22 12/23/22 simvastatin 40 mg tablet 40 mg PO HS 11/22/22 12/23/22 triamcinolone acetonide 0.1 % 1 applic topical DAILY PRN Itching 11/22/22 12/23/22 topical cream Previous Rx's Medication Instructions Recorded furosemide 20 mg tablet (Lasix) 20 mg PO UD #60 tabs 11/27/22 magnesium oxide 400 mg (241.3 mg 400 mg PO BID 30 days #60 tabs 11/27/22 magnesium) tablet potassium chloride 10 mEq 10 meq PO DAILY 30 days #30 tabs 11/27/22 tablet,extended release(part/cryst) Results & Data (ED) Vital Signs Vital Signs - 24 hr 12/23/22 16:08 12/23/22 17:21 12/23/22 17:21 Temperature 37.0 C Temperature Source Temporal Artery Scan Pulse Rate 86 Pulse Rate [Apical] 125 H Pulse Rhythm Regular Pulse Rhythm [Apical] Irregular Pulse Strength Normal Respiratory Rate 22 20 Respiratory Effort / Characteristics Non-Labored Non-Labored Respiratory Depth Normal Normal Blood Pressure Blood Pressure [Right Arm] 95/76 L Blood Pressure Mean [Right Arm] 82 Pulse Oximetry 98 95 95 Oxygen Delivery Method Room Air Nasal Cannula Nasal Cannula Oxygen Flow Rate 1 1 Sepsis Recent Fever Within 48 Hours No Sepsis New/Unexplained Change in Mental Status No Sepsis Action Taken by Nursing No Action Required 12/23/22 17:21 12/23/22 17:32 12/23/22 17:19 Temperature Temperature Source Pulse Rate 124 H 127 H Pulse Rate [Apical] Pulse Rhythm Pulse Rhythm [Apical] Pulse Strength Respiratory Rate Respiratory Effort / Characteristics Respiratory Depth Blood Pressure 95/76 L Blood Pressure [Right Arm] Blood Pressure Mean [Right Arm] Pulse Oximetry 95 Oxygen Delivery Method Nasal Cannula Oxygen Flow Rate 1 Sepsis Recent Fever Within 48 Hours Sepsis New/Unexplained Change in Mental Status Sepsis Action Taken by Nursing 12/23/22 17:55 12/23/22 18:31 12/23/22 18:52 Temperature Temperature Source Pulse Rate 100 H 111 H Pulse Rate [Apical] 96 H Pulse Rhythm Pulse Rhythm [Apical] Pulse Strength Respiratory Rate Respiratory Effort / Characteristics Respiratory Depth Blood Pressure 99/72 L 105/82 Blood Pressure [Right Arm] 94/73 L Blood Pressure Mean [Right Arm] 80 Pulse Oximetry Oxygen Delivery Method Oxygen Flow Rate Sepsis Recent Fever Within 48 Hours Sepsis New/Unexplained Change in Mental Status Sepsis Action Taken by Nursing Laboratory Data 12/23/22 16:26 12/23/22 16:26 Lab Results 12/23/22 12/23/22 12/23/22 Range/Units 16:24 16:26 16:26 WBC 9.75 (4.8-10.8) K/ul RBC 3.10 L (4.70-6.10) M/uL Hgb 9.7 L (14.0-18.0) g/dl Hct 30.6 L (42.0-52.0) % MCV 98.7 (80.0-100.0) fL MCH 31.3 (25.0-34.0) pg MCHC 31.7 L (32.0-36.0) g/dL RDW Std Deviation 58.0 H (36.4-46.3) fL RDW Coeff of Lizeth 16.2 H (11.5-14.5) % Plt Count 336 (130-400) K/uL MPV 10.2 (9.4-12.4) fL Immature Gran % (Auto) 0.3 % Neut % (Auto) 88.9 % Lymph % (Auto) 7.1 % [place] % (Auto) 3.4 % Eos % (Auto) 0.1 % Baso % (Auto) 0.2 % Neut # (Auto) 8.67 H (1.40-6.50) K/uL Lymph # (Auto) 0.69 L (1.20-3.40) K/uL [place] # (Auto) 0.33 (0.11-0.59) K/uL Eos # (Auto) 0.01 (0.00-0.50) K/uL Baso # (Auto) 0.02 (0.00-0.20) K/uL Immature Gran # (Auto) 0.03 (0.01-0.20) K/uL PT 13.3 H (9.0-12.0) Seconds INR 1.2 H (0.9-1.1) APTT 28.3 (21.0-31.0) Seconds PTT Ratio 1.0 Sodium (136-145) mmol/L Potassium (3.5-5.1) mmol/L Chloride (98-107) mmol/L Carbon Dioxide (21-32) mmol/L Anion Gap (3-11) BUN (6-23) mg/dl Creatinine (0.6-1.4) mg/dl Est Cr Clr Drug Dosing Est GFR ( Amer) ml/min Est GFR (Non-Af Amer) ml/min BUN/Creatinine Ratio (10-20) Glucose (70-99(Fasting)) mg/dl Calcium (8.6-10.3) mg/dl Magnesium (1.7-2.4) mg/dl Total Bilirubin (0.2-1.0) mg/dl AST (13-39) U/L ALT (7-52) U/L Alkaline Phosphatase (34-104) U/L Troponin I High Sens (0-20) pg/ml B-Natriuretic Peptide (0-100) pg/ml Total Protein (6.0-8.3) gm/dl Albumin (3.4-5.0) gm/dl Globulin (2.5-4.0) gm/dl Albumin/Globulin Ratio (0.9-2) TSH (0.300-4.500) uIu/ml SARS-CoV-2 (PCR) (Negative) Influenza Type A (PCR) (Neg) Influenza Type B (PCR) (Neg) RSV (RT-PCR) (Neg) SARS-CoV-2, RNA, NAAT NEGATIVE (NEGATIVE) 12/23/22 12/23/22 12/23/22 Range/Units 16:26 16:26 16:26 WBC (4.8-10.8) K/ul RBC (4.70-6.10) M/uL Hgb (14.0-18.0) g/dl Hct (42.0-52.0) % MCV (80.0-100.0) fL MCH (25.0-34.0) pg MCHC (32.0-36.0) g/dL RDW Std Deviation (36.4-46.3) fL RDW Coeff of Lizeth (11.5-14.5) % Plt Count (130-400) K/uL MPV (9.4-12.4) fL Immature Gran % (Auto) % Neut % (Auto) % Lymph % (Auto) % [place] % (Auto) % Eos % (Auto) % Baso % (Auto) % Neut # (Auto) (1.40-6.50) K/uL Lymph # (Auto) (1.20-3.40) K/uL [place] # (Auto) (0.11-0.59) K/uL Eos # (Auto) (0.00-0.50) K/uL Baso # (Auto) (0.00-0.20) K/uL Immature Gran # (Auto) (0.01-0.20) K/uL PT (9.0-12.0) Seconds INR (0.9-1.1) APTT (21.0-31.0) Seconds PTT Ratio Sodium 137 (136-145) mmol/L Potassium 4.3 (3.5-5.1) mmol/L Chloride 98 (98-107) mmol/L Carbon Dioxide 33 H (21-32) mmol/L Anion Gap 6 (3-11) BUN 25 H (6-23) mg/dl Creatinine 1.01 (0.6-1.4) mg/dl Est Cr Clr Drug Dosing Not Reportable Est GFR ( Amer) 82.2 ml/min Est GFR (Non-Af Amer) 70.9 ml/min BUN/Creatinine Ratio 24.8 H (10-20) Glucose 121 H (70-99(Fasting)) mg/dl Calcium 9.3 (8.6-10.3) mg/dl Magnesium 2.0 (1.7-2.4) mg/dl Total Bilirubin 0.5 (0.2-1.0) mg/dl AST 18 (13-39) U/L ALT 20 (7-52) U/L Alkaline Phosphatase 87 (34-104) U/L Troponin I High Sens 29.6 H (0-20) pg/ml B-Natriuretic Peptide 1438 H (0-100) pg/ml Total Protein 6.6 (6.0-8.3) gm/dl Albumin 3.1 L (3.4-5.0) gm/dl Globulin 3.5 (2.5-4.0) gm/dl Albumin/Globulin Ratio 0.9 (0.9-2) TSH 1.795 (0.300-4.500) uIu/ml SARS-CoV-2 (PCR) (Negative) Influenza Type A (PCR) (Neg) Influenza Type B (PCR) (Neg) RSV (RT-PCR) (Neg) SARS-CoV-2, RNA, NAAT (NEGATIVE) 12/23/22 12/23/22 Range/Units 17:39 18:30 WBC (4.8-10.8) K/ul RBC (4.70-6.10) M/uL Hgb (14.0-18.0) g/dl Hct (42.0-52.0) % MCV (80.0-100.0) fL MCH (25.0-34.0) pg MCHC (32.0-36.0) g/dL RDW Std Deviation (36.4-46.3) fL RDW Coeff of Lizeth (11.5-14.5) % Plt Count (130-400) K/uL MPV (9.4-12.4) fL Immature Gran % (Auto) % Neut % (Auto) % Lymph % (Auto) % [place] % (Auto) % Eos % (Auto) % Baso % (Auto) % Neut # (Auto) (1.40-6.50) K/uL Lymph # (Auto) (1.20-3.40) K/uL [place] # (Auto) (0.11-0.59) K/uL Eos # (Auto) (0.00-0.50) K/uL Baso # (Auto) (0.00-0.20) K/uL Immature Gran # (Auto) (0.01-0.20) K/uL PT (9.0-12.0) Seconds INR (0.9-1.1) APTT (21.0-31.0) Seconds PTT Ratio Sodium (136-145) mmol/L Potassium (3.5-5.1) mmol/L Chloride (98-107) mmol/L Carbon Dioxide (21-32) mmol/L Anion Gap (3-11) BUN (6-23) mg/dl Creatinine (0.6-1.4) mg/dl Est Cr Clr Drug Dosing Est GFR ( Amer) ml/min Est GFR (Non-Af Amer) ml/min BUN/Creatinine Ratio (10-20) Glucose (70-99(Fasting)) mg/dl Calcium (8.6-10.3) mg/dl Magnesium (1.7-2.4) mg/dl Total Bilirubin (0.2-1.0) mg/dl AST (13-39) U/L ALT (7-52) U/L Alkaline Phosphatase (34-104) U/L Troponin I High Sens 26.2 H (0-20) pg/ml B-Natriuretic Peptide (0-100) pg/ml Total Protein (6.0-8.3) gm/dl Albumin (3.4-5.0) gm/dl Globulin (2.5-4.0) gm/dl Albumin/Globulin Ratio (0.9-2) TSH (0.300-4.500) uIu/ml SARS-CoV-2 (PCR) NEGATIVE (Negative) Influenza Type A (PCR) Negative (Neg) Influenza Type B (PCR) Negative (Neg) RSV (RT-PCR) Negative (Neg) SARS-CoV-2, RNA, NAAT (NEGATIVE) Administered Medications Fluticasone Propionate (Fluticasone Propionate Na Spr 16 Gm Btl) 1 sprays NA DAILY [facility] Stop: 01/23/23 08:59 Last Admin: 12/24/22 08:22 Dose: 1 sprays Documented By: SILVA Furosemide (Furosemide Inj 20 Mg/2 Ml Vial) 20 mg IV [id number] [facility] Stop: 01/23/23 13:59 Last Admin: 12/24/22 13:47 Dose: 20 mg Documented By: SILVA Heparin Sodium/Dextrose (Heparin Sodium/Dextrose) 25,000 units in 500 mls @ 21 mls/hr IV .[id number] [facility]; Protocol Stop: 01/22/23 19:44 Last Titration: 12/24/22 11:26 Dose: 1,050 units/hr, 21 mls/hr Documented By: SILVA Co-signed By: WINIFRED Titration: 12/24/22 07:10 Dose: 1,000 units/hr, 20 mls/hr Documented By: SILVA Co-signed By: KAYE Titration: 12/24/22 04:27 Dose: 1,000 units/hr, 20 mls/hr Documented By: KAYE Co-signed By: ASRA Admin: 12/23/22 21:19 Dose: 900 units/hr, 18 mls/hr Documented By: KAYE Co-signed By: JENNY Metoprolol Tartrate (Metoprolol Tartrate 25 Mg Tab) 12.5 mg PO QID [facility] Stop: 01/23/23 12:59 Last Admin: 12/24/22 12:20 Dose: 12.5 mg Documented By: SILVA Sertraline HCl (Sertraline Hcl 50 Mg Tablet) 50 mg PO DAILY [facility] Stop: 01/23/23 08:59 Last Admin: 12/24/22 08:23 Dose: 50 mg Documented By: SILVA Simvastatin (Simvastatin 40 Mg Tab) 40 mg PO HS [facility] Stop: 01/22/23 20:59 Last Admin: 12/23/22 22:58 Dose: 40 mg Documented By: KAYE Discontinued Medications Furosemide (Furosemide Inj 20 Mg/2 Ml Vial) 20 mg IV DAILY [facility] Stop: 01/23/23 08:59 Last Admin: 12/24/22 08:23 Dose: 20 mg Documented By: SILVA Heparin Sodium (Porcine) (Heparin Sod (Porcine) 1000 Unit/Ml) 2,000 units IV NOW ONE Stop: 12/24/22 04:51 Last Admin: 12/24/22 05:04 Dose: 2,000 units Documented By: KAYE Co-signed By: JENNY Heparin Sodium/Dextrose (Heparin Iv Adult Wt-Based Low-Dose *No* Bolus Protocol) 1 each IV ONE STA; Protocol Stop: 12/23/22 19:51 Last Admin: 12/23/22 21:24 Dose: Not Given Documented By: KAYE Sodium Chloride (Nss) 1,000 mls @ 999 mls/hr IV .[id number] ONE Stop: 12/23/22 18:29 Last Infusion: 12/23/22 18:25 Dose: 0 mls/hr Documented By: Admin: 12/23/22 17:33 Dose: 999 mls/hr Documented By: SAMARIA Digoxin 250 mcg/ Syringe 10 mls @ 2 mls/min IV ONE ONE Stop: 12/24/22 12:04 Last Admin: 12/24/22 12:08 Dose: 2 mls/min Documented By: SILVA Metoprolol Tartrate (Metoprolol Tartrate 1 Mg/Ml Vial) 5 mg IV NOW STA Stop: 12/23/22 17:30 Last Admin: 12/23/22 17:32 Dose: 5 mg Documented By: SAMARIA Metoprolol Tartrate (Metoprolol Tartrate 1 Mg/Ml Vial) 5 mg IV NOW STA Stop: 12/23/22 18:07 Last Admin: 12/23/22 18:31 Dose: 5 mg Documented By: SAMARIA Metoprolol Tartrate (Metoprolol Tartrate 25 Mg Tab) 12.5 mg PO BID SATURNINO Stop: 01/22/23 20:59 Last Admin: 12/24/22 08:23 Dose: 12.5 mg Documented By: Admin: 12/23/22 22:58 Dose: 12.5 mg Documented By: KAYE Discharge Plan Visit Data Chief Complaint: Arrhythmia/Palpitations Stated Complaint: A FIB ED Provider: Gaurav Natarajan Discharge Problem: Atrial fibrillation with rapid ventricular response, Malaise and fatigue Patient Disposition: Admitted As Inpatient Discharge Instructions Interventions: ED Discharge Assessment Last Done: 12/23/22 20:08
--- NOTE | 2022-12-23 17:47 | XRay Report ---
SINGLE VIEW CHEST CLINICAL HISTORY: Atypical chest pain. FINDINGS: An AP, portable, upright chest radiograph is compared to study dated 11/26/2022 and correlate d with chest CT dated 11/22/2022. The examination is degraded by portable technique and patient rotatio n. The heart is enlarged noting atherosclerotic calcification of the thoracic aorta. There is pulmona ry vascular congestion. Emphysematous change is noted. There are left larger than right pleural effus ions with dependent consolidation. Airspace opacities are seen throughout both lungs. No pneumothorax is seen. The skeletal structures are osteopenic. There are chronic/healed right-sided rib fractures. IMPRESSION: 1. Cardiomegaly and emphysema with evidence of congestive failure. 2. Multifocal airspace opacities are again seen throughout both lungs. This could represent pulmonary edema and/or multifocal pneumonia. Clinical correlation will be required and radiographic follow-up to resolution is recommended. 3. Left larger than right pleural effusions with dependent consolidation. ACT 112: Negative or not required by law. Electronically signed by: William Ledesma M.D. 12/23/2022 5:45 PM
[2022-12-23 17:53] LABS: INR 1.2 (0.9-1.1); Partial Thromboplastin Time 28.3 Seconds (21.0-31.0); Prothrombin Time 13.3 Seconds (9.0-12.0)
[2022-12-23 18:24] LABS: Influenza A virus by PCR Negative (Neg); Influenza B virus by PCR Negative (Neg); RSV by PCR Negative (Neg); SARS CoV2 RNA(COVID-19) Ceph NEGATIVE (Negative)
[2022-12-23] MEDS ORDERED: POLYETHYLENE (MIRALAX) 17 GM PACK PO PRN (18:54)
[2022-12-23] MEDS ORDERED: ALUMINUM/MAGNESIUM SUSP 30 ML UDC PO PRN (18:54)
[2022-12-23] MEDS ORDERED: ONDANSETRON INJ 2 MG/ML 2 ML VIAL IV PRN (18:54)
[2022-12-23] MEDS ORDERED: ACETAMINOPHEN 325 MG TAB PO PRN (18:54)
[2022-12-23] MEDS ORDERED: MAGNESIUM HYDROXIDE SUSP 30 ML UDC PO PRN (18:54)
--- NOTE | 2022-12-23 19:10 | History & Physical Report ---
Date of Service December 23, 2022 Assessment & Plan (1) New onset a-fib: (2) HFrEF (heart failure with reduced ejection fraction): (3) History of pleural effusion: (4) Hyperlipidemia: (5) COPD (chronic obstructive pulmonary disease): (6) Anxiety and depression: Plan Mr. 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 He recently was hospitalized 11/22 to 11/27 with recurrent note pleural effusions and pneumonia. During his last admission he underwent a bronchoscopy with bronco alveolar lavage and transbronchial biopsies along with a thoracentesis on 11/23 for 1.5L pleural fluid removal. Biopsies negative for malignancy. Echocardiogram 11/23/2022 with focal hypokinesis. Mild pulmonary hypertension and EF 55 to 60% with grade 3 diastolic dysfunction and normal left ventricular wall motion. Additional past medical history includes HFrEF, COPD (new supplemental O2), HFrEF, and HLD. No leukocytosis today and otherwise CBC and BMP unremarkable. Mag 2.0, TSH 1.795. BNP elevated 1438. Negative for COVID, influenza, RSV. Will check procal and keep NPO pending cardiology consultation. Suspect this individual has been in A-fib over the last week when he started to feel overall exhausted. [id number] score 4. Add Metoprolol PO and PRN IV for HR > 130. Low dose Heparin gtt. New onset A-fib: Acute uncontrolled Does not appear toxic. Initial troponin 29.1; trend x1 do not suspect ACS rather ischemic demand Mg 2.0, TSH 1.795 Metoprolol 5 mg IV x2 given in ED 1L NSB given in ED No associated shortness of breath [id number] 4 Last Echocardiogram 11/23/2022 with focal hypokinesis. Mild pulmonary hypertension and EF 55 to 60% with grade 3 diastolic dysfunction and normal left ventricular wall motion. Check procalcitonin Add Metoprolol 12.5 mg PO BID Add Lopressor 2.5 mg IV Q6 PRN for HR > 130 Start Heparin gtt low dose without bolus NPO after MN pending cards consult Cardiology Consultation HFrEF: BNP 1438 CXR: Cardiomegaly and emphysema with evidence of congestive failure. Multifocal airspace opacities are again seen throughout both lungs. This could represent pulmonary edema and/or multifocal pneumonia. Clinical correlation will be required and radiographic follow-up to resolution is recommended. Left larger than right pleural effusions with dependent consolidation. Last Echocardiogram 11/23/2022 with focal hypokinesis. Mild pulmonary hypertension and EF 55 to 60% with grade 3 diastolic dysfunction and normal left ventricular wall motion. Takes Lasix 20 mg T, R, Sa and Sun. Takes Lasix 40 mg M, W, F; Order Lasix 40 mg IV Cardiology Consultation COPD: Chronic stable Last admission bronchoscopy with bronchioloalveolar lavage and transbronchial biopsies performed Final path: a few degenerate mesothelial cells are all seen. Negative for malignancy After recent admission was sent home on supplemental O2, 1 L NC CXR: Left larger than right pleural effusions with dependent consolidation. History of pleural effusions: Likely secondary to heart failure diastolic dysfunction. No peripheral edema Thoracentesis x3 at [facility] and x1 [facility] 09/13 Last thoracentesis 11/23 with 1.5 L pleural fluid removed HLD: Chronic stable Takes simvastatin; continue Anxiety and depression: Chronic stable Takes sertraline; continue Disposition: PCP: Dr. Bernal CODE STATUS: Full code VTE prophylaxis: Heparin gtt I spent a total of 88 minutes coordinating, documenting, and providing care for this patient excluding time spent in the performance of separately billed services. All of the aforementioned completed while collaborating with the assigned attending physician for a full treatment plan. Please see their addendum for further details. History of Present Illness Chief Complaint: new onset AF RVR Primary Care Provider: Emiliana Bernal MD Mr. 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 He recently was hospitalized 11/22 to 11/27 with recurrent note pleural effusions and pneumonia. During his last admission he underwent a bronchoscopy with bronco alveolar lavage and transbronchial biopsies along with a thoracentesis on 11/23 for 1.5L pleural fluid removal. Additional past medical history includes HFrEF, COPD and HLD. No leukocytosis today and otherwise CBC and BMP unremarkable. Mag 2.0, TSH 1.795. BNP elevated 1438. Negative for COVID, influenza, RSV. Echocardiogram 11/23/2022 with focal hypokinesis. Mild pulmonary hypertension and EF 55 to 60% with grade 3 diastolic dysfunction and normal left ventricular wall motion. Mag 2.0, TSH 1.795. BNP elevated 1438. Negative for COVID, influenza, RSV. Will check procal and keep NPO pending cardiology consultation. Suspect this individual has been in A-fib over the last week when he started to feel overall exhausted. [id number] score 4. Add Metoprolol PO and PRN IV for HR > 130. Low dose Heparin gtt. Suspect this individual has been in A-fib over the last week when he started to feel overall exhausted. [id number] score 4. Patient reports that he feels similarly to how he felt when he was admitted before. He states that there have not been any real changes since he has returned home. He reports not having energy or appetite. Pt denies HARRIS, dizziness, orthopnea, SOB at rest, Chest pain, palpitations, increased swelling, urine or bowel changes, no fevers or chills, N/V/D, hematochezia, recent falls or trauma. Denies alcohol, tobacco or illicit drug use. Patient will be admitted for further evaluation and management. Please see A/P for further details. Allergies Allergy/AdvReac Type Severity Reaction Status Date / Time No Known Allergies Allergy Verified 11/22/22 18:33 Home Medications Medication Instructions Recorded Confirmed Type albuterol sulfate 90 mcg/actuation 2 puff inhalation Q4H PRN 11/22/22 12/23/22 History aerosol inhaler COUGH/SHORTNESS OF BREATH/WHEEZING cholecalciferol (vitamin D3) 25 25 mcg PO DAILY 11/22/22 12/23/22 History mcg (1,000 unit) capsule (Vitamin D3) clobetasol 0.05 % topical cream 1 applic topical BID PRN Itching 11/22/22 12/23/22 History fluticasone propionate 50 1 spray intranasal DAILY 11/22/22 12/23/22 History mcg/actuation nasal spray,suspension guaifenesin 600 mg tablet, 600 mg PO Q12H 11/22/22 12/23/22 History extended release 12 hr ipratropium 0.5 mg-albuterol 3 mg 3 ml inhalation Q4H PRN Wheezing 11/22/22 12/23/22 History (2.5 mg base)/3 mL nebulization soln latanoprost 0.005 % eye drops 1 drp OPB PM 11/22/22 12/23/22 History levobunolol 0.5 % eye drops 1 drp OPB BID 11/22/22 12/23/22 History crukjbvexggy-uusodaze-bstkwi 1 tab PO DAILY 11/22/22 12/23/22 History tablet (Multivitamin 50 Plus tablet) ondansetron HCl 4 mg tablet 4 mg PO Q8H PRN NAUSEA/VOMITING 11/22/22 12/23/22 History psyllium husk 0.4 gram capsule 0.4 g PO DAILY 11/22/22 12/23/22 History (Fiber (psyllium husk)) sertraline 50 mg tablet 50 mg PO DAILY 11/22/22 12/23/22 History sildenafil 100 mg tablet 100 mg PO DAILY PRN Sexual Activity 11/22/22 12/23/22 History simvastatin 40 mg tablet 40 mg PO HS 11/22/22 12/23/22 History triamcinolone acetonide 0.1 % 1 applic topical DAILY PRN Itching 11/22/22 12/23/22 History topical cream furosemide 20 mg tablet (Lasix) 20 mg PO UD #60 tabs 11/27/22 12/23/22 Rx magnesium oxide 400 mg (241.3 mg 400 mg PO BID 30 days #60 tabs 11/27/22 12/23/22 Rx magnesium) tablet potassium chloride 10 mEq 10 meq PO DAILY 30 days #30 tabs 11/27/22 12/23/22 Rx tablet,extended release(part/cryst) Past Med/Surg History Medical History (Updated 12/23/22 @ 20:02 by VALERIO Boss) Anxiety and depression COPD (chronic obstructive pulmonary disease) History of pleural effusion History of tobacco abuse 43 pk yr hx; stopped 2007 Hyperlipidemia New onset a-fib Pleural effusion chronic, recurrent since at least 2019; s/p multiple taps in 2022 transudative Recurrent pneumonia Weight loss 22 lb 10/2021 - 10/2022 based on [facility] clinic VS; 13% of TBW; weighed 180 lb Sept 2020 [facility] Surgical History History of thoracentesis x 3 at [facility] x 1 [facility] 08/2022 Family History Sister Cancer Diabetes Social History Smoking Status: Never smoker Tobacco Type: Cigarettes Hx Alcohol Use: No Hx Substance Use: No Preferred Language: Slovenian Communication Ability: Effective 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 Beliefs That Will Affect Care: None Current Living Situation: Spouse Other Information That Helps Us Care for You: No Feels Safe at Home: Yes Safety Concerns: Feels Safe At This Time Assistive Devices: Denture - Upper, Denture - Lower, Glasses and Hearing Aid - Bilateral Review of Systems Review of Systems: Neuro: (-) Falls, trauma, slurred speech HEENT: (-) HARRIS, dizziness, dysphagia, visual or auditory changes CV: (-) CP, palpitations, swelling Resp: (-) SOB at rest but reports increased SOB with activity GI: (-) appetite changes, N/V/D, bowel changes : (-) urinary changes Skin: (-) rashes Psych: (-) anxiety, depression Physical Exam Physical Exam: See Dr Case's addendum for physical examination findings. Patient euvolemic on examination. Results & Data Results & Data Vital Signs (Past 12 Hours) Vital Signs Temp Pulse Pulse Resp BP BP Pulse Ox 12/23/22 18:54 96 H 94/73 L 12/23/22 18:52 96 H 94/73 L 12/23/22 18:31 111 H 105/82 12/23/22 17:55 100 H 99/72 L 12/23/22 17:19 127 H 12/23/22 17:32 124 H 95/76 L 12/23/22 17:21 95 12/23/22 17:21 125 H 20 95/76 L 95 12/23/22 17:21 95 12/23/22 16:08 37.0 C 86 22 98 O2 Del Method O2 Flow Rate 12/23/22 18:54 12/23/22 18:52 12/23/22 18:31 12/23/22 17:55 12/23/22 17:19 12/23/22 17:32 12/23/22 17:21 Nasal Cannula 1 12/23/22 17:21 Nasal Cannula 1 12/23/22 17:21 Nasal Cannula 1 12/23/22 16:08 Room Air Laboratory Results Short CBC 12/23/22 Range/Units 16:26 WBC 9.75 (4.8-10.8) K/ul Hgb 9.7 L (14.0-18.0) g/dl Hct 30.6 L (42.0-52.0) % Plt Count 336 (130-400) K/uL BMP 12/23/22 16:26 Sodium 137 Potassium 4.3 Chloride 98 Carbon Dioxide 33 H BUN 25 H Creatinine 1.01 Glucose 121 H Calcium 9.3 Liver Function 12/23/22 Range/Units 16:26 Total Bilirubin 0.5 (0.2-1.0) mg/dl AST 18 (13-39) U/L ALT 20 (7-52) U/L Alkaline Phosphatase 87 (34-104) U/L Albumin 3.1 L (3.4-5.0) gm/dl Diagnostic Findings Chest X-Ray 12/23/22 16:16 SINGLE VIEW CHEST CLINICAL HISTORY: Atypical chest pain. FINDINGS: An AP, portable, upright chest radiograph is compared to study dated 11/26/2022 and correlated with chest CT dated 11/22/2022. The examination is degraded by portable technique and patient rotation. The heart is enlarged noting atherosclerotic calcification of the thoracic aorta. There is pulmonary vascular congestion. Emphysematous change is noted. There are left larger than right pleural effusions with dependent consolidation. Airspace opacities are seen throughout both lungs. No pneumothorax is seen. The skeletal structures are osteopenic. There are chronic/healed right-sided rib fractures. IMPRESSION: 1. Cardiomegaly and emphysema with evidence of congestive failure. 2. Multifocal airspace opacities are again seen throughout both lungs. This could represent pulmonary edema and/or multifocal pneumonia. Clinical correlatio n will be required and radiographic follow-up to resolution is recommended. 3. Left larger than right pleural effusions with dependent consolidation. ACT 112: Negative or not required by law. Electronically signed by: William Ledesma M.D. 12/23/2022 5:45 PM Code Status & VTE Plan Code Status Full code in the event of cardiac or respiratory arrest VTE Prophylaxis Plan VTE Prophylaxis will be ordered: Yes Supervising Physician Co-Signing Physician Notes Attending addendum: The patient was seen and examined in the emergency room He has been complaining of progressive weakness and shortness of breath for a while Noted to have atrial fibrillation with low blood pressure at the doctor's office Denies any symptoms other than ongoing shortness of breath and weakness No chest pain or palpitation, no fever no chills, no abdominal pain nausea or vomiting On examination Minimal shortness of breath at rest Has tachycardia and borderline low blood pressure without fever Chestdecreased breath sounds bilaterally with occasional crackles at the bases HeartS1-S2, irregular Abdomenbenign Extremities trace edema bilaterally more on the right than the left His admission labs, medications, EKG and imaging studies reviewed New onset atrial fibrillation in the setting of severe emphysema and left pleural effusion Recent bronchial biopsy was negative for any malignancy Started on intravenous heparin and also small doses of intravenous Lasix Has a echo recently And will get cardiology consult Agree with assessment plan as outlined above by reviewing ANA CRISTINA Case
[2022-12-23] MEDS ORDERED: METOPROLOL TARTRATE 1 MG/ML VIAL IV PRN (19:46)
[2022-12-23] MEDS ORDERED: Heparin IV Adult Wt-Based Low-Dose *NO* Bolus Protocol IV STA (19:50)
[2022-12-23] MEDS: HEPARIN SODIUM/DEXTROSE 25,000 UNITS/500 ML BAG IV SCH (21:19)
[2022-12-23 22:40] LABS: Appearance Urine Clear (Clear); Bacteria Urine Automated Negative (Negative); Bilirubin Urine Negative (Negative); Blood Urine Negative (Negative); Color Urine Yellow; Glucose Urine UA Negative (Negative); Ketones Urine Trace (Negative); Leukocyte Esterase Urine Trace (Negative); Nitrite Urine Negative (Negative); Protein Urine Trace (Negative); RBC Urine Automated 0-4 /hpf (0-4); Specific Gravity Urine 1.022 (1.000-1.030); Urobilinogen Urine Negative (Negative); pH Urine 6.5 (4.5-7.5)
[2022-12-23] MEDS: METOPROLOL TARTRATE 25 MG TAB PO SCH (22:58)
[2022-12-23] MEDS: SIMVASTATIN 40 MG TAB PO SCH (22:58)
[2022-12-24 03:57] LABS: Hemoglobin 9.4 g/dl (14.0-18.0); Mean Corpuscular Hemoglobin 31.6 pg (25.0-34.0); Mean Corpuscular Hgb Conc 32.4 g/dL (32.0-36.0); Mean Corpuscular Volume 97.6 fL (80.0-100.0); Mean Platelet Volume 10.3 fL (9.4-12.4); Platelet Count 326 K/uL (130-400); RDW Coefficient of Variation 16.4 % (11.5-14.5); RDW Standard Deviation 57.4 fL (36.4-46.3); Red Blood Count 2.97 M/uL (4.70-6.10); White Blood Count 8.52 K/ul (4.8-10.8)
[2022-12-24 04:11] LABS: Albumin Globulin Ratio 0.9 (0.9-2); Albumin Level 2.9 gm/dl (3.4-5.0); BUN Creatinine Ratio 26.3 (10-20); Bilirubin,Total 0.4 mg/dl (0.2-1.0); Calcium 9.2 mg/dl (8.6-10.3); Creatinine Clr Calc Pharmacy 55.5 ml/min; Est GFR (African American) 88.5 ml/min; Est GFR (Non-African American) 76.4 ml/min; Globulin 3.3 gm/dl (2.5-4.0); Potassium 4.3 mmol/L (3.5-5.1); Total Protein 6.2 gm/dl (6.0-8.3)
[2022-12-24 04:20] LABS: Partial Thromboplastin Ratio 1.2; Partial Thromboplastin Time 33.6 Seconds (21.0-31.0)
[2022-12-24] MEDS ORDERED: HEPARIN SOD (PORCINE) 1000 UNIT/ML IV ONE (04:50)
[2022-12-24] MEDS: FLUTICASONE PROPIONATE NA SPR 16 GM BTL SCH (08:22)
[2022-12-24] MEDS: SERTRALINE HCL 50 MG TABLET PO SCH (08:23)
[2022-12-24] MEDS: METOPROLOL TARTRATE 25 MG TAB PO SCH ×4 (08:23→20:17)
[2022-12-24] MEDS ORDERED: FUROSEMIDE INJ 20 MG/2 ML VIAL IV SCH (09:00)
--- NOTE | 2022-12-24 10:37 | Electrocardiogram Report ---
Test Reason : Blood Pressure : / mmHG Vent. Rate : 122 BPM Atrial Rate : 000 BPM P-R Int : 000 ms QRS Dur : 106 ms QT Int : 328 ms P-R-T Axes : 000 -01 157 degrees QTc Int : 467 ms Atrial fibrillation with rapid ventricular response Abnormal ECG When compared with ECG of 24-NOV-2022 04:39, Atrial fibrillation has replaced Sinus rhythm Confirmed by Benji Alves ([id number]) on 12/24/2022 10:37:38 AM Referred By: Emiliana Bernal Confirmed By:Kai Alves
--- NOTE | 2022-12-24 10:49 | Electrocardiogram Report ---
Test Reason : Blood Pressure : / mmHG Vent. Rate : 106 BPM Atrial Rate : 182 BPM P-R Int : 000 ms QRS Dur : 112 ms QT Int : 354 ms P-R-T Axes : 000 -05 159 degrees QTc Int : 470 ms Atrial fibrillation with rapid ventricular response Nonspecific ST and T wave abnormality Abnormal ECG When compared with ECG of 23-DEC-2022 16:20, (unconfirmed) No significant change was found Confirmed by Benji Alves ([id number]) on 12/24/2022 10:48:52 AM Referred By: Emiliana Bernal Confirmed By:Kai Alves
--- NOTE | 2022-12-24 11:13 | Cardiology Consultation ---
Date of Consultation December 24, 2022 Assessment & Plan (1) New onset a-fib: (2) Atrial fibrillation with rapid ventricular response: (3) Heart failure with preserved ejection fraction: (4) Bilateral pleural effusion: Plan New onset symptomatic atrial fibrillation with a rapid ventricular response. Duration unknown. [id number] Score 4 points. Hypotension and underlying lung disease complicate treatment. Options discussed with patient and who was present for the entire consultation. Plan as outlined below. - Add metoprolol tartrate 12.5 mg 4 times per day, holding for SBP less than 90 - Add digoxin, 0.25 mg now and again in 6 hours - Heparin to long-term anticoagulation Heart failure with preserved ejection fraction with associated left greater than right pleural effusions - Continue IV furosemide 40 mg/day - Maintain normokalemia and normomagnesemia - Monitor I/O's and weight daily on the same standing scale - Consider addition of spironolactone pending the above. Elevated troponin. Secondary to the above. Myocardial calcifications. ? Etiology Supervising Physician Co-Signing Physician Notes 77-year-old male sent in by recreation clerk due to outpatient ECG demonstrating atr ial fibrillation with rapid ventricular response. History of chronic pleural effusion with difficulty tolerating diuretic therapy in the past due to borderline hypotension. Patient feels fairly well from a cardiovascular perspective. Denies chest discomfort, unusual shortness of breath, palpitations, lightheadedness, dizziness, syncope, or near syncope. PE: Tachycardia, borderline hypotensive. General: NAD, cachectic, pale. Heart: Irregular rhythm, borderline tachycardic, normal S1-S2. Lungs: Diminished breath sounds at the left base. Crackles at the bases bilateral. No wheeze. Extremities: No edema. A/P: Agree with above PA-C history, physical exam, assessment and plan. Add low-dose beta-ben, metoprolol tartrate 12.5 mg 4 times daily in addition to digoxin. Continue IV heparin with transition to oral Eliquis. Gentle diuresis as tolerated. History of Present Illness Reason for Consultation: New onset atrial fibrillation with a rapid ventricular response Requesting Physician: Tanika Attending Physician: Nicola History of Present Illness 77-year-old male [place] Hospitalized at [facility] to 11/27/2022 with multifocal pneumonia and acute decompensated diastolic congestive heart failure with bilateral pleural effusions (transudative) and hypervolemic hyponatremia. Discharged on furosemide 40 mg on Mondays, Wednesdays, and Fridays, 20 mg all other days of the week. Notes improvement in phlegm with uptitration of furosemide, without improvement in dyspnea. For the last week the patient has noted decreased energy, increased fatigue. Patient evaluated by Nephrology on December 23, 2022 with hypotension and tachycardia noted, EKG revealing new onset atrial fibrillation with a rapid ventricular response with inferolateral STT wave changes suggestive of ischemia leading to ER referral and hospitalization EKG on presentation revealed atrial fibrillation with a ventricular rate of 122 bpm with lateral STT wave abnormality and a QTc of 467 ms. Chest x-ray on presentation revealed cardiomegaly and emphysema with evidence of congestive heart failure, left greater than right pleural effusions with dependent consolidation, multifocal airspace opacities throughout both lungs Patient received 2 doses of 5 mg IV Lopressor in the ER and prescribed metoprolol tartrate 12.5 mg twice per day along with IV heparin EKG this morning reveals atrial fibrillation with a ventricular rate of 106 bpm with nonspecific STT wave abnormality and a QTc of 470 ms Continuous telemetry monitoring reveals atrial fibrillation throughout hospitalization with heart rates above 100 bpm, currently 130 bpm Approximately 1 year ago patient underwent dental work with decreased oral intake in and around that time, thereafter with change in appetite, early satiety, and nausea without vomiting with resultant significant unplanned weight loss Problem List: HFpEF with bilateral pleural effusions Chronic respiratory failure with hypoxia COPD/emphysema Dyslipidemia History of tobacco use, [id number], quitting in 2007 Glaucoma Allergies Allergy/AdvReac Type Severity Reaction Status Date / Time No Known Allergies Allergy Verified 11/22/22 18:33 Home Medications Medication Instructions Recorded Confirmed Type albuterol sulfate 90 mcg/actuation 2 puff inhalation Q4H PRN 11/22/22 12/23/22 History aerosol inhaler COUGH/SHORTNESS OF BREATH/WHEEZING cholecalciferol (vitamin D3) 25 25 mcg PO DAILY 11/22/22 12/23/22 History mcg (1,000 unit) capsule (Vitamin D3) clobetasol 0.05 % topical cream 1 applic topical BID PRN Itching 11/22/22 12/23/22 History fluticasone propionate 50 1 spray intranasal DAILY 11/22/22 12/23/22 History mcg/actuation nasal spray,suspension guaifenesin 600 mg tablet, 600 mg PO Q12H 11/22/22 12/23/22 History extended release 12 hr ipratropium 0.5 mg-albuterol 3 mg 3 ml inhalation Q4H PRN Wheezing 11/22/22 12/23/22 History (2.5 mg base)/3 mL nebulization soln latanoprost 0.005 % eye drops 1 drp OPB PM 11/22/22 12/23/22 History levobunolol 0.5 % eye drops 1 drp OPB BID 11/22/22 12/23/22 History jyzyudzhosef-akflcpjn-vbzebv 1 tab PO DAILY 11/22/22 12/23/22 History tablet (Multivitamin 50 Plus tablet) ondansetron HCl 4 mg tablet 4 mg PO Q8H PRN NAUSEA/VOMITING 11/22/22 12/23/22 History psyllium husk 0.4 gram capsule 0.4 g PO DAILY 11/22/22 12/23/22 History (Fiber (psyllium husk)) sertraline 50 mg tablet 50 mg PO DAILY 11/22/22 12/23/22 History sildenafil 100 mg tablet 100 mg PO DAILY PRN Sexual Activity 11/22/22 12/23/22 History simvastatin 40 mg tablet 40 mg PO HS 11/22/22 12/23/22 History triamcinolone acetonide 0.1 % 1 applic topical DAILY PRN Itching 11/22/22 12/23/22 History topical cream furosemide 20 mg tablet (Lasix) 20 mg PO UD #60 tabs 11/27/22 12/23/22 Rx magnesium oxide 400 mg (241.3 mg 400 mg PO BID 30 days #60 tabs 11/27/22 12/23/22 Rx magnesium) tablet potassium chloride 10 mEq 10 meq PO DAILY 30 days #30 tabs 11/27/22 12/23/22 Rx tablet,extended release(part/cryst) Patient History Medical History Anxiety and depression COPD (chronic obstructive pulmonary disease) History of pleural effusion History of tobacco abuse 43 pk yr hx; stopped 2007 Hyperlipidemia New onset a-fib Pleural effusion chronic, recurrent since at least 2019; s/p multiple taps in 2022 transudative Recurrent pneumonia Weight loss 22 lb 10/2021 - 10/[address] [facility] clinic VS; 13% of TBW; weighed [address] [facility] Surgical History History of thoracentesis x 3 at [facility] x 1 G 08/2022 Family History Sister Cancer Diabetes Social History Smoking Status: Never smoker Tobacco Type: Cigarettes Hx Alcohol Use: No Hx Substance Use: No Preferred Language: Moroccan Communication Ability: Effective Engagement Manager Required: No Beliefs That Will Affect Care: None Current Living Situation: Spouse Other Information That Helps Us Care for You: No Feels Safe at Home: Yes Safety Concerns: Feels Safe At This Time Assistive Devices: Oxygen - Continuous Review of Systems Review of Systems: Complete review of systems is otherwise as stated above, negative, noncontributory Physical Exam Physical Exam: General: A&Ox3. NAD. Cachectic appearing HENT: Normocephalic. Atraumatic. Eyes: PER. Conjunctiva pink, sclera clear. Neck: No carotid bruits. + JVD. Heart: Irregularly irregular at 110 bpm. Soft systolic murmur heard at the lower left sternal border. No rub. PMI is nondisplaced. Lungs: Absent breath sounds one third of the way up on the left and at the right base. Right basilar Rales. No wheeze. Abdomen: +BS. Soft. Nontender. No masses or organomegaly. Extremities: + distal edema. No clubbing. No cyanosis. Limited neurological examination is without focal deficits. Pulses: radial=2/4, posterior tibial=1/4. Results & Data Vital Signs (Past 12 Hours) Vital Signs Temp Pulse Resp BP Pulse Ox O2 Del Method O2 Flow Rate 12/24/22 10:48 36.6 C 118 H 16 103/63 98 Oxymask 1 12/24/22 07:39 36.6 C 126 H 16 113/80 98 Room Air 12/24/22 03:00 36.8 C 101 H 14 98/65 L 92 Nasal Cannula Laboratory Results Cardiac Enzymes 12/23/22 12/23/22 12/23/22 Range/Units 16:26 16:26 18:30 AST 18 (13-39) U/L Troponin I High Sens 29.6 H 26.2 H (0-20) pg/ml B-Natriuretic Peptide 1438 H (0-100) pg/ml 12/23/22 12/24/22 Range/Units 20:17 03:27 AST 25 (13-39) U/L Troponin I High Sens 28.1 H (0-20) pg/ml B-Natriuretic Peptide (0-100) pg/ml Coagulation 12/23/22 12/23/22 12/24/22 Range/Units 16:26 16:26 03:27 PT 13.3 H (9.0-12.0) Seconds APTT 28.3 33.6 H (21.0-31.0) Seconds B-Natriuretic Peptide 1438 H (0-100) pg/ml 12/24/22 Range/Units 10:33 PT (9.0-12.0) Seconds APTT 38.2 H (21.0-31.0) Seconds B-Natriuretic Peptide (0-100) pg/ml CBC 12/23/22 12/24/22 Range/Units 16:26 03:27 WBC 9.75 8.52 (4.8-10.8) K/ul RBC 3.10 L 2.97 L (4.70-6.10) M/uL Hgb 9.7 L 9.4 L (14.0-18.0) g/dl Hct 30.6 L 29.0 L (42.0-52.0) % Plt Count 336 326 (130-400) K/uL Neut # (Auto) 8.67 H (1.40-6.50) K/uL Lymph # (Auto) 0.69 L (1.20-3.40) K/uL [place] # (Auto) 0.33 (0.11-0.59) K/uL Eos # (Auto) 0.01 (0.00-0.50) K/uL Baso # (Auto) 0.02 (0.00-0.20) K/uL Comprehensive Metabolic Panel 12/23/22 12/24/22 Range/Units 16:26 03:27 Sodium 137 134 L (136-145) mmol/L Potassium 4.3 4.3 (3.5-5.1) mmol/L Chloride 98 99 (98-107) mmol/L Carbon Dioxide 33 H 32 (21-32) mmol/L BUN 25 H 25 H (6-23) mg/dl Creatinine 1.01 0.95 (0.6-1.4) mg/dl Glucose 121 H 104 H (70-99(Fasting)) mg/dl Calcium 9.3 9.2 (8.6-10.3) mg/dl AST 18 25 (13-39) U/L ALT 20 25 (7-52) U/L Alkaline Phosphatase 87 89 (34-104) U/L Total Protein 6.6 6.2 (6.0-8.3) gm/dl Albumin 3.1 L 2.9 L (3.4-5.0) gm/dl Intake and Output 12/23/22 12/24/22 12/24/22 22:59 06:59 14:59 Intake Total 1240 / 1368.4 128.4 / 1368.4 139.666 / 139.666 Output Total 400 / 400 201 / 201 Balance 1240 / 968.4 -271.6 / 968.4 -61.334 / -61.334 Intake: IV 1000 / 1128.4 128.4 / 1128.4 139.666 / 139.666 Heparin Sodium/Dextrose 25,000 128.4 / 128.4 139.666 / 139.666 units In 500 ml @ 1,000 UNITS/ HR 20 mls/hr IV .Q24H [facility] Rx#: [id number] Sodium Chloride 0.9% 1,000 ml @ 1000 / 1000 999 mls/hr IV .Q1H1M [facility] Rx#: [id number] Oral 240 / 240 Output: Urine 400 / 400 200 / 200 # Bowel Movements Other: Weight 61.235 kg 63.1 kg Weight Measurement Method Built in Bedscale Standing Scale
[2022-12-24 11:18] LABS: Partial Thromboplastin Ratio 1.4; Partial Thromboplastin Time 38.2 Seconds (21.0-31.0)
[2022-12-24] MEDS ORDERED: DIGOXIN 250 MCG in SYRINGE 9 ML IV ONE ×2 (12:00→18:00)
--- NOTE | 2022-12-24 12:57 | Hospitalist Progress Note ---
Date of Service December 24, 2022 Assessment & Plan (1) New onset a-fib: (2) HFrEF (heart failure with reduced ejection fraction): (3) History of pleural effusion: (4) Hyperlipidemia: (5) COPD (chronic obstructive pulmonary disease): (6) Anxiety and depression: Plan Mr. Matamoros is a 77-year-old male that presented to the [facility] ED by recommendation of his farmworker general as he was at an outpatient appointment today and found to be in rapid A-fib. He recently was hospitalized 11/22 to 11/27 with recurrent note pleural effusions and pneumonia. During his last admission he underwent a bronchoscopy with bronco alveolar lavage and transbronchial biopsies along with a thoracentesis on 11/23 for 1.5L pleural fluid removal. Biopsies negative for malignancy. Echocardiogram 11/23/2022 with focal hypokinesis. Mild pulmonary hypertension and EF 55 to 60% with grade 3 diastolic dysfunction and normal left ventricular wall motion. Additional past medical history includes HFrEF, COPD (new supplemental O2), HFrEF, and HLD. No leukocytosis today and otherwise CBC and BMP unremarkable. Mag 2.0, TSH 1.795. BNP elevated 1438. Negative for COVID, influenza, RSV. Atrial fibrillation with RVR Patient was sent to the ED after he was found to have A-fib during his outpatient visit to farmworker general EKG on admission reviewed personally; atrial fibrillation with ventricular rate of 122. High sensitive troponin around 25-30 which is his baseline. Mg 2.0, TSH 1.795 [id number] 4 Last Echocardiogram 11/23/2022 with focal hypokinesis. Mild pulmonary hypertension and EF 55 to 60% with grade 3 diastolic dysfunction and normal left ventricular wall motion. He is started on metoprolol and digoxin for rate control by cardiology Also, on heparin drip for anticoagulation Continue to monitor on telemetry Acute on chronic HFrEF: BNP 1438 CXR personally reviewed: Cardiomegaly and emphysema with evidence of congestive failure. Multifocal airspace opacities are again seen throughout both lungs. This could represent pulmonary edema and/or multifocal pneumonia. Clinical correlation will be required and radiographic follow-up to resolution is recommended. Left larger than right pleural effusions with dependent consolidation. Last Echocardiogram 11/23/2022 with focal hypokinesis. Mild pulmonary hypertension and EF 55 to 60% with grade 3 diastolic dysfunction and normal left ventricular wall motion. At home -Lasix 20 mg T, R, Sa and Sun. Takes Lasix 40 mg M, W, F; IV Lasix 40 mg once a day Strict input and output monitoring Will need to follow-up chest x-ray after discharge to ensure resolution COPD: Chronic stable Last admission bronchoscopy with bronchioloalveolar lavage and transbronchial biopsies performed Final path: a few degenerate mesothelial cells are all seen. Negative for malignancy After recent admission was sent home on supplemental O2, 1 L NC History of pleural effusions: Likely secondary to heart failure diastolic dysfunction. No peripheral edema Thoracentesis x3 at [facility] and x1 [facility] 09/13 Last thoracentesis 11/23 with 1.5 L pleural fluid removed. Transudative in nature. HLD: Chronic stable Takes simvastatin; continue Anxiety and depression: Chronic stable Takes sertraline; continue Disposition: PCP: Dr. Bernal CODE STATUS: Full code VTE prophylaxis: Heparin gtt Time spent evaluating patient, direct bedside care, chart review, placing orders, interpretation of diagnostic studies, discussion with consultants, patient, and family members, as well as other required patient management activities is 60-minute Please note the above document was generated using voice recognition software. It may contain grammatical, syntax or spelling errors. Any formal questions or concerns about the content, text or information contained within the body of this dictation should be directly addressed to the provider for clarification Admission and Anticipated Discharge Date Admission Date: December 23, 2022 Subjective Patient seen and examined at bedside. He is lying in the bed comfortably. Not in any distress. Telemetry shows atrial fibrillation with ventricular rates in 100s to 120s Review of Systems Review of Systems: All systems reviewed & are unremarkable except as noted in Subjective Physical Exam Physical Exam: Constitutional: Alert orient x3; not in distress Respiratory: Bilateral basal crackles heard. Decreased breath sounds on left lower lung field Cardiovascular: Irregular, no murmur, no edema Vessels: no JVD or carotid bruit Chest: normal inspection of chest Abdomen: normal bowel sounds, soft, nontender, no hepatosplenomegaly Musculoskeletal: no cyanosis or clubbing, extremities motor strength 5/5 Skin: no rashes, warm and dry normal turgor Neurologic: PERRL, EOMI, accommodation nl, no face palsy, no dysarthria CN's II- XI intact bilaterally and moves all extremities Psychiatric: A+Ox3, euthymic affect Results & Data Results & Data Vital Signs (Past 12 Hours) Vital Signs Temp Pulse Pulse Resp BP Pulse Ox O2 Del Method 12/24/22 12:08 107 H 12/24/22 10:48 36.6 C 118 H 16 103/63 98 Oxymask 12/24/22 07:39 36.6 C 126 H 16 113/80 98 Room Air 12/24/22 03:00 36.8 C 101 H 14 98/65 L 92 Nasal Cannula O2 Flow Rate 12/24/22 12:08 12/24/22 10:48 1 12/24/22 07:39 12/24/22 03:00 Laboratory Results Laboratory Results WBC 8.52 K/ul (4.8-10.8) 12/24/22 03:27 RBC 2.97 M/uL (4.70-6.10) L 12/24/22 03:27 Hgb 9.4 g/dl (14.0-18.0) L 12/24/22 03:27 Hct 29.0 % (42.0-52.0) L 12/24/22 03:27 MCV 97.6 fL (80.0-100.0) 12/24/22 03:27 MCH 31.6 pg (25.0-34.0) 12/24/22 03:27 MCHC 32.4 g/dL (32.0-36.0) 12/24/22 03:27 RDW Std Deviation 57.4 fL (36.4-46.3) H 12/24/22 03:27 RDW Coeff of Lizeth 16.4 % (11.5-14.5) H 12/24/22 03:27 Plt Count 326 K/uL (130-400) 12/24/22 03:27 MPV 10.3 fL (9.4-12.4) 12/24/22 03:27 Immature Gran % (Auto) 0.3 % 12/23/22 16:26 Neut % (Auto) 88.9 % 12/23/22 16:26 Lymph % (Auto) 7.1 % 12/23/22 16:26 [place] % (Auto) 3.4 % 12/23/22 16:26 Eos % (Auto) 0.1 % 12/23/22 16:26 Baso % (Auto) 0.2 % 12/23/22 16: Neut # (Auto) 8.67 K/uL (1.40-6.50) H 12/23/22 16: Lymph # (Auto) 0.69 K/uL (1.20-3.40) L 12/23/22 16: [place] # (Auto) 0.33 K/uL (0.11-0.59) 12/23/22 16: Eos # (Auto) 0.01 K/uL (0.00-0.50) 12/23/22 16: Baso # (Auto) 0.02 K/uL (0.00-0.20) 12/23/22 16: Immature Gran # (Auto) 0.03 K/uL (0.01-0.20) 12/23/22 16: PT 13.3 Seconds (9.0-12.0) H 12/23/22 16: INR 1.2 (0.9-1.1) H 12/23/22 16: APTT 38.2 Seconds (21.0-31.0) H 12/24/22 10: PTT Ratio 1.4 12/24/22 10: Sodium 134 mmol/L (136-145) L 12/24/22 03:27 Potassium 4.3 mmol/L (3.5-5.1) 12/24/22 03:27 Chloride 99 mmol/L (98-107) 12/24/22 03:27 Carbon Dioxide 32 mmol/L (21-32) 12/24/22 03:27 Anion Gap 3 (3-11) 12/24/22 03:27 BUN 25 mg/dl (6-23) H 12/24/22 03:27 Creatinine 0.95 mg/dl (0.6-1.4) 12/24/22 03:27 Est Cr Clr Drug Dosing 55.5 ml/min 12/24/22 03:27 Est GFR ( Amer) 88.5 ml/min 12/24/22 03:27 Est GFR (Non-Af Amer) 76.4 ml/min 12/24/22 03:27 BUN/Creatinine Ratio 26.3 (10-20) H 12/24/22 03:27 Glucose 104 mg/dl (70-99(Fasting)) H 12/24/22 03:27 Calcium 9.2 mg/dl (8.6-10.3) 12/24/22 03:27 Phosphorus 3.0 mg/dl (2.5-4.9) 12/24/22 03:27 Magnesium 2.0 mg/dl (1.7-2.4) 12/23/22 16:26 Total Bilirubin 0.4 mg/dl (0.2-1.0) 12/24/22 03:27 AST 25 U/L (13-39) 12/24/22 03:27 ALT 25 U/L (7-52) 12/24/22 03:27 Alkaline Phosphatase 89 U/L (34-104) 12/24/22 03:27 Troponin I High Sens 28.1 pg/ml (0-20) H 12/23/22 20:17 B-Natriuretic Peptide 1438 pg/ml (0-100) H 12/23/22 16:26 Total Protein 6.2 gm/dl (6.0-8.3) 12/24/22 03:27 Albumin 2.9 gm/dl (3.4-5.0) L 12/24/22 03:27 Globulin 3.3 gm/dl (2.5-4.0) 12/24/22 03:27 Albumin/Globulin Ratio 0.9 (0.9-2) 12/24/22 03:27 Procalcitonin 0.05 ng/ml (0-0.5) 12/23/22 20:17 TSH 1.795 uIu/ml (0.300-4.500) 12/23/22 16:26 Urine Color Cancelled 12/23/22 Unknown Urine Color Yellow 12/23/22 Unknown Urine Appearance Cancelled 12/23/22 Unknown Urine Appearance Clear (Clear) 12/23/22 Unknown Urine pH 6.5 (4.5-7.5) 12/23/22 Unknown Urine pH Cancelled 12/23/22 Unknown Ur Specific Hope 1.022 (1.000-1.030) 12/23/22 Unknown Ur Specific Hope Cancelled 12/23/22 Unknown Urine Protein Cancelled 12/23/22 Unknown Urine Protein Trace (Negative) H 12/23/22 Unknown Urine Glucose (UA) Cancelled 12/23/22 Unknown Urine Glucose (UA) Negative (Negative) 12/23/22 Unknown Urine Ketones Cancelled 12/23/22 Unknown Urine Ketones Trace (Negative) H 12/23/22 Unknown Urine Blood Cancelled 12/23/22 Unknown Urine Blood Negative (Negative) 12/23/22 Unknown Urine Nitrite Cancelled 12/23/22 Unknown Urine Nitrite Negative (Negative) 12/23/22 Unknown Urine Bilirubin Cancelled 12/23/22 Unknown Urine Bilirubin Negative (Negative) 12/23/22 Unknown Urine Urobilinogen Cancelled 12/23/22 Unknown Urine Urobilinogen Negative (Negative) 12/23/22 Unknown Ur Leukocyte Esterase Cancelled 12/23/22 Unknown Ur Leukocyte Esterase Trace (Negative) H 12/23/22 Unknown Urine WBC (Auto) 1-5 /hpf (0-5) 12/23/22 Unknown Urine WBC (Auto) Cancelled 12/23/22 Unknown Urine RBC (Auto) 0-4 /hpf (0-4) 12/23/22 Unknown Urine RBC (Auto) Cancelled 12/23/22 Unknown U Hyaline Cast (Auto) 1-5 /lpf (0-5) 12/23/22 Unknown U Hyaline Cast (Auto) Cancelled 12/23/22 Unknown U Epithel Cells (Auto) 5-10 /lpf (0-5) H 12/23/22 Unknown U Epithel Cells (Auto) Cancelled 12/23/22 Unknown Urine Bacteria (Auto) Cancelled 12/23/22 Unknown Urine Bacteria (Auto) Negative (Negative) 12/23/22 Unknown Ur Renal Epithelial Cell Cancelled 12/23/22 Unknown Urine Crystals Cancelled 12/23/22 Unknown Calcium Oxalate Crystal Cancelled 12/23/22 Unknown Uric Acid Crystals Cancelled 12/23/22 Unknown Triple Phos Crystals Cancelled 12/23/22 Unknown Other Crystals Cancelled 12/23/22 Unknown Amorphous Sediment Cancelled 12/23/22 Unknown Granular Casts Cancelled 12/23/22 Unknown Waxy Casts Cancelled 12/23/22 Unknown RBC Casts Cancelled 12/23/22 Unknown WBC Casts Cancelled 12/23/22 Unknown Other Casts Cancelled 12/23/22 Unknown Urine Mucus Cancelled 12/23/22 Unknown Urine Other Cancelled 12/23/22 Unknown Urine Trichomonas Cancelled 12/23/22 Unknown Urine Yeast Cancelled 12/23/22 Unknown Urine Sperm Cancelled 12/23/22 Unknown Ur Oval Fat Bodies Cancelled 12/23/22 Unknown SARS-CoV-2 (PCR) NEGATIVE (Negative) 12/23/22 17:39 Influenza Type A (PCR) Negative (Neg) 12/23/22 17:39 Influenza Type B (PCR) Negative (Neg) 12/23/22 17:39 RSV (RT-PCR) Negative (Neg) 12/23/22 17:39 SARS-CoV-2, RNA, NAAT NEGATIVE (NEGATIVE) 12/23/22 16:24 Impressions Chest X-Ray 12/23/22 16:16 SINGLE VIEW CHEST CLINICAL HISTORY: Atypical chest pain. FINDINGS: An AP, portable, upright chest radiograph is compared to study dated 11/26/2022 and correlated with chest CT dated 11/22/2022. The examination is degraded by portable technique and patient rotation. The heart is enlarged noting atherosclerotic calcification of the thoracic aorta. There is pulmonary vascular congestion. Emphysematous change is noted. There are left larger than right pleural effusions with dependent consolidation. Airspace opacities are seen throughout both lungs. No pneumothorax is seen. The skeletal structures are osteopenic. There are chronic/healed right-sided rib fractures. IMPRESSION: 1. Cardiomegaly and emphysema with evidence of congestive failure. 2. Multifocal airspace opacities are again seen throughout both lungs. This could represent pulmonary edema and/or multifocal pneumonia. Clinical correlation will be required and radiographic follow-up to resolution is recommended. 3. Left larger than right pleural effusions with dependent consolidation. ACT 112: Negative or not required by law. Electronically signed by: William Ledesma M.D. 12/23/2022 5:45 PM
[2022-12-24] MEDS: FUROSEMIDE INJ 20 MG/2 ML VIAL IV SCH (13:47)
[2022-12-24 18:38] LABS: Partial Thromboplastin Ratio 1.4; Partial Thromboplastin Time 38.3 Seconds (21.0-31.0)
[2022-12-24] MEDS: HEPARIN SODIUM/DEXTROSE 25,000 UNITS/500 ML BAG IV SCH (20:15)
[2022-12-24] MEDS: SIMVASTATIN 40 MG TAB PO SCH (22:25)
[2022-12-25 01:42] LABS: Partial Thromboplastin Ratio 1.4; Partial Thromboplastin Time 39.1 Seconds (21.0-31.0)
[2022-12-25] MEDS: FUROSEMIDE INJ 20 MG/2 ML VIAL IV SCH ×2 (05:56→13:44)
[2022-12-25 08:29] LABS: Basophils # (auto) 0.02 K/uL (0.00-0.20); Basophils % (auto) 0.3 %; Eosinophils # (auto) 0.05 K/uL (0.00-0.50); Eosinophils % (auto) 0.6 %; Hematocrit (blood only) 31.3 % (42.0-52.0); Hemoglobin 10.1 g/dl (14.0-18.0); Immature Granulocytes # (auto) 0.03 K/uL (0.01-0.20); Immature Granulocytes % (auto) 0.4 %; Lymphocytes # (auto) 0.68 K/uL (1.20-3.40); Lymphocytes % (auto) 8.8 %; Mean Corpuscular Hemoglobin 31.6 pg (25.0-34.0); Mean Corpuscular Hgb Conc 32.3 g/dL (32.0-36.0); Mean Corpuscular Volume 97.8 fL (80.0-100.0); Monocytes # (auto) 0.36 K/uL (0.11-0.59); Monocytes % (auto) 4.6 %; Neutrophils # (auto) 6.61 K/uL (1.40-6.50); Neutrophils % (auto) 85.3 %; Platelet Count 310 K/uL (130-400); RDW Coefficient of Variation 16.2 % (11.5-14.5); RDW Standard Deviation 57.1 fL (36.4-46.3); White Blood Count 7.75 K/ul (4.8-10.8)
[2022-12-25] MEDS: FLUTICASONE PROPIONATE NA SPR 16 GM BTL SCH (08:34)
[2022-12-25] MEDS: METOPROLOL TARTRATE 25 MG TAB PO SCH ×3 (08:34→20:12)
[2022-12-25 08:39] LABS: BUN Creatinine Ratio 21.5 (10-20); Calcium 8.4 mg/dl (8.6-10.3); Creatinine Clr Calc Pharmacy 58.5 ml/min; Est GFR (African American) 90.8 ml/min; Est GFR (Non-African American) 78.4 ml/min; Potassium 3.6 mmol/L (3.5-5.1)
[2022-12-25 08:51] LABS: Partial Thromboplastin Ratio 1.3; Partial Thromboplastin Time 37.3 Seconds (21.0-31.0)
[2022-12-25] MEDS: SERTRALINE HCL 50 MG TABLET PO SCH (09:06)
--- NOTE | 2022-12-25 10:33 | Cardiology Progress Note ---
Date of Service December 25, 2022 Assessment & Plan (1) New onset a-fib: (2) Atrial fibrillation with rapid ventricular response: (3) Heart failure with preserved ejection fraction: (4) Bilateral pleural effusion: Plan New onset symptomatic atrial fibrillation with a rapid ventricular response. Duration unknown. [id number] Score 4 points. Hypotension and underlying lung disease complicate treatment. - Change metoprolol tartrate to 25 mg TID - Digoxin 125 mcg daily for now - Heparin to long-term anticoagulation Heart failure with preserved ejection fraction with associated left greater than right pleural effusions - Continue IV furosemide 40 mg/day - Add spironolactone - Maintain normokalemia and normomagnesemia - Monitor I/O's and weight daily on the same standing scale Elevated troponin. Secondary to the above. Myocardial calcifications. ? Etiology Recommend further evaluation of the unplanned weight loss, early satiety, nausea. Admission and Anticipated Discharge Date Admission Date: December 23, 2022 Supervising Physician Co-Signing Physician Notes Patient seen and examined at the bedside. Feeling somewhat better today. Heart rate improved on telemetry. Denies chest pain or heaviness. Chronic dyspnea unchanged. No orthopnea or PND. PE: Tachycardia, borderline hypotensive. General: NAD, cachectic, pale. Heart: Irregular rhythm, borderline tachycardic, normal S1-S2. Lungs: Diminished breath sounds left base and mid lung lopez. No wheeze. Extremities: No edema. A/P: Agree with above PA-C history, physical exam, assessment and plan. Continue diuresis with IV furosemide 20 mg twice daily as blood pressure allows. Add low-dose Aldactone today. Supplement electrolytes as indicated. Transition metoprolol to 25 mg 3 times daily with daily digoxin 125 mcg daily. Continue IV heparin with transition to oral Eliquis. Consider GI evaluation of early satiety, weight loss, poor appetite. Subjective Patient seen and examined. Chart, medications, and telemetry reviewed. Notes "No appetite. No energy. No pain." No chest pain. No palpitations. Breathing OK, 98% on 1 L/min via NC. No orthopnea or PND. Distal bilateral lower extremity edema has improved. No dizziness. No subjective fevers or chills. EKG this morning reveals atrial fibrillation with a ventricular rate of 89 bpm with nonspecific STT wave abnormality and a QTc of 433 ms. Continuous telemetry monitoring reveals atrial fibrillation with heart rates predominantly in the 80s and 90s, with an occasional PVC. Review of Systems Review of Systems: Complete review of systems is otherwise as stated above, negative, noncontributory Physical Exam Physical Exam: General: A&Ox3. NAD. Cachectic appearing HENT: Normocephalic. Atraumatic. Eyes: PER. Conjunctiva pink, sclera clear. Neck: No carotid bruits. + JVD. Heart: Irregularly irregular at 90 bpm. Systolic murmur heard at the lower left sternal border. No rub. PMI is nondisplaced. Lungs: Absent breath sounds one third of the way up on the left and at the right base. Right basilar Rales. No wheeze. Abdomen: +BS. Soft. Nontender. No masses or organomegaly. Extremities: Minimal distal edema. No clubbing. No cyanosis. Limited neurological examination is without focal deficits. Pulses: radial=2/4, posterior tibial=1/4. Results & Data Vital Signs (Past 12 Hours) Vital Signs Temp Pulse Resp BP Pulse Ox O2 Del Method O2 Flow Rate 12/25/22 07:05 37 C 100 H 18 122/76 98 Nasal Cannula 1 12/25/22 03:15 36.5 C 82 18 105/66 98 Nasal Cannula 1 12/24/22 22:33 36.6 C 92 H 20 104/69 98 Nasal Cannula 1 Laboratory Results Coagulation 12/24/22 12/24/22 12/25/22 Range/Units 10:33 17:41 00:57 APTT 38.2 H 38.3 H 39.1 H (21.0-31.0) Seconds 12/25/22 Range/Units 08:01 APTT 37.3 H (21.0-31.0) Seconds CBC 12/25/22 Range/Units 08:01 WBC 7.75 (4.8-10.8) K/ul RBC 3.20 L (4.70-6.10) M/uL Hgb 10.1 L (14.0-18.0) g/dl Hct 31.3 L (42.0-52.0) % Plt Count 310 (130-400) K/uL Neut # (Auto) 6.61 H (1.40-6.50) K/uL Lymph # (Auto) 0.68 L (1.20-3.40) K/uL [place] # (Auto) 0.36 (0.11-0.59) K/uL Eos # (Auto) 0.05 (0.00-0.50) K/uL Baso # (Auto) 0.02 (0.00-0.20) K/uL Comprehensive Metabolic Panel 12/25/22 Range/Units 08:01 Sodium 137 (136-145) mmol/L Potassium 3.6 (3.5-5.1) mmol/L Chloride 97 L (98-107) mmol/L Carbon Dioxide 33 H (21-32) mmol/L BUN 20 (6-23) mg/dl Creatinine 0.93 (0.6-1.4) mg/dl Glucose 91 (70-99(Fasting)) mg/dl Calcium 8.4 L (8.6-10.3) mg/dl Intake and Output 12/24/22 12/25/22 12/25/22 22:59 06:59 14:59 Intake Total 606.217 / 1141.883 121 / 1141.883 169.817 / 169.817 Output Total 100 / 501 200 / 501 Balance 506.217 / 640.883 -79 / 640.883 169.817 / 169.817 Intake: IV 186.217 / 446.883 121 / 446.883 169.817 / 169.817 Heparin Sodium/Dextrose 25,000 186.217 / 446.883 121 / 446.883 169.817 / 169.817 units In 500 ml @ 1,150 UNITS/ HR 23 mls/hr IV .[id number] [facility] Rx #:[id number] Oral 420 / 695 Output: Urine 100 / 500 200 / 500 Other: # Unmeasured Voids 2 Weight 63.2 kg Weight Measurement Method Built in [facility]
[2022-12-25] MEDS ORDERED: POTASSIUM CHLORIDE 10 MEQ TABCR PO ONE (10:35)
[2022-12-25] MEDS: SPIRONOLACTONE 12.5 MG TAB PO SCH (11:21)
--- NOTE | 2022-12-25 12:32 | Electrocardiogram Report ---
Test Reason : Blood Pressure : / mmHG Vent. Rate : 089 BPM Atrial Rate : 300 BPM P-R Int : 000 ms QRS Dur : 096 ms QT Int : 356 ms P-R-T Axes : 000 005 127 degrees QTc Int : 433 ms Atrial fibrillation Nonspecific ST and T wave abnormality Abnormal ECG When compared with ECG of 24-DEC-2022 05:39, No significant change was found Confirmed by Benji Alves ([id number]) on 12/25/2022 12:31:38 PM Referred By: Emiliana Bernal Confirmed By:Kai Alves
[2022-12-25] MEDS: HEPARIN SODIUM/DEXTROSE 25,000 UNITS/500 ML BAG IV SCH ×2 (14:56→17:37)
[2022-12-25] MEDS: DIGOXIN 0.125 MG TAB PO SCH (16:17)
[2022-12-25 16:49] LABS: Partial Thromboplastin Ratio 1.2; Partial Thromboplastin Time 34.7 Seconds (21.0-31.0)
--- NOTE | 2022-12-25 17:07 | Hospitalist Progress Note ---
Date of Service December 25, 2022 Assessment & Plan (1) New onset a-fib: (2) HFrEF (heart failure with reduced ejection fraction): (3) History of pleural effusion: (4) Hyperlipidemia: (5) COPD (chronic obstructive pulmonary disease): (6) Anxiety and depression: Plan Mr. 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 He recently was hospitalized 11/22 to 11/27 with recurrent note pleural effusions and pneumonia. During his last admission he underwent a bronchoscopy with bronco alveolar lavage and transbronchial biopsies along with a thoracentesis on 11/23 for 1.5L pleural fluid removal. Biopsies negative for malignancy. Echocardiogram 11/23/2022 with focal hypokinesis. Mild pulmonary hypertension and EF 55 to 60% with grade 3 diastolic dysfunction and normal left ventricular wall motion. Additional past medical history includes HFrEF, COPD (new supplemental O2), HFrEF, and HLD. No leukocytosis today and otherwise CBC and BMP unremarkable. Mag 2.0, TSH 1.795. BNP elevated 1438. Negative for COVID, influenza, RSV. Atrial fibrillation with RVR Patient was sent to the ED after he was found to have A-fib during his outpatient visit to meat cooler EKG on admission reviewed personally; atrial fibrillation with ventricular rate of 122. High sensitive troponin around 25-30 which is his baseline. Mg 2.0, TSH 1.795 [id number] 4 Last Echocardiogram 11/23/2022 with focal hypokinesis. Mild pulmonary hypertension and EF 55 to 60% with grade 3 diastolic dysfunction and normal left ventricular wall motion. He is started on metoprolol and digoxin for rate control by cardiology Also, on heparin drip for anticoagulation Continue to monitor on telemetry Acute on chronic HFrEF: BNP 1438 CXR personally reviewed: Cardiomegaly and emphysema with evidence of congestive failure. Multifocal airspace opacities are again seen throughout both lungs. This could represent pulmonary edema and/or multifocal pneumonia. Clinical correlation will be required and radiographic follow-up to resolution is recommended. Left larger than right pleural effusions with dependent consolidation. Last Echocardiogram 11/23/2022 with focal hypokinesis. Mild pulmonary hypertension and EF 55 to 60% with grade 3 diastolic dysfunction and normal left ventricular wall motion. At home -Lasix 20 mg T, R, Sa and Sun. Takes Lasix 40 mg M, W, F; IV Lasix 40 mg once a day Strict input and output monitoring Will need to follow-up chest x-ray after discharge to ensure resolution COPD: Chronic stable Last admission bronchoscopy with bronchioloalveolar lavage and transbronchial biopsies performed Final path: a few degenerate mesothelial cells are all seen. Negative for malignancy After recent admission was sent home on supplemental O2, 1 L NC History of pleural effusions: Likely secondary to heart failure diastolic dysfunction. No peripheral edema Thoracentesis x3 at [facility] and x1 [facility] [place] 09/13 Last thoracentesis 11/23 with 1.5 L pleural fluid removed. Transudative in nature. HLD: Chronic stable Takes simvastatin; continue Anxiety and depression: Chronic stable Takes sertraline; continue Disposition: PCP: Dr. Bernal CODE STATUS: Full code VTE prophylaxis: Heparin gtt Time spent evaluating patient, direct bedside care, chart review, placing orders, interpretation of diagnostic studies, discussion with consultants, patient, and family members, as well as other required patient management activities is 60-minute Please note the above document was generated using voice recognition software. It may contain grammatical, syntax or spelling errors. Any formal questions or concerns about the content, text or information contained within the body of this dictation should be directly addressed to the provider for clarification Admission and Anticipated Discharge Date Admission Date: December 23, 2022 Results & Data Results & Data Vital Signs (Past 12 Hours) Vital Signs Temp Pulse Pulse Resp BP Pulse Ox O2 Del Method 12/25/22 16:17 91 H 12/25/22 16:02 36.6 C 82 18 101/63 94 Room Air 12/25/22 11:51 36.5 C 104 H 18 89/50 L 91 Room Air 12/25/22 11:47 Nasal Cannula 12/25/22 07:05 37 C 100 H 18 122/76 98 Nasal Cannula O2 Flow Rate 12/25/22 16:17 12/25/22 16:02 12/25/22 11:51 12/25/22 11:47 1 12/25/22 07:05 1
[2022-12-25] MEDS ORDERED: HEPARIN SOD (PORCINE) 1000 UNIT/ML IV ONE (17:15)
--- NOTE | 2022-12-25 18:38 | Hospitalist Progress Note ---
Date of Service December 25, 2022 Assessment & Plan (1) New onset a-fib: (2) HFrEF (heart failure with reduced ejection fraction): (3) History of pleural effusion: (4) Hyperlipidemia: (5) COPD (chronic obstructive pulmonary disease): (6) Anxiety and depression: Plan per admitting service notes with addendum: Mr. 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 He recently was hospitalized 11/22 to 11/27 with recurrent note pleural effusions and pneumonia. During his last admission he underwent a bronchoscopy with bronco alveolar lavage and transbronchial biopsies along with a thoracentesis on 11/23 for 1.5L pleural fluid removal. Biopsies negative for malignancy. Echocardiogram 11/23/2022 with focal hypokinesis. Mild pulmonary hypertension and EF 55 to 60% with grade 3 diastolic dysfunction and normal left ventricular wall motion. Additional past medical history includes HFrEF, COPD (new supplemental O2), HFrEF, and HLD. No leukocytosis today and otherwise CBC and BMP unremarkable. Mag 2.0, TSH 1.795. BNP elevated 1438. Negative for COVID, influenza, RSV. Atrial fibrillation with RVR Patient was sent to the ED after he was found to have A-fib during his outpatient visit to equity trader EKG on admission reviewed personally; atrial fibrillation with ventricular rate of 122. High sensitive troponin around 25-30 which is his baseline. Mg 2.0, TSH 1.795 [id number] 4 Last Echocardiogram 11/23/2022 with focal hypokinesis. Mild pulmonary hypertension and EF 55 to 60% with grade 3 diastolic dysfunction and normal left ventricular wall motion. He is started on metoprolol and digoxin for rate control by cardiology Also, on heparin drip for anticoagulation Continue to monitor on telemetry 12/25 increased Metoprolol to 25mg TID continue Digoxin continue Heparin Acute on chronic HFrEF: BNP 1438 CXR personally reviewed: Cardiomegaly and emphysema with evidence of congestive failure. Multifocal airspace opacities are again seen throughout both lungs. This could represent pulmonary edema and/or multifocal pneumonia. Clinical correlation will be required and radiographic follow-up to resolution is recommended. Left larger than right pleural effusions with dependent consolidation. Last Echocardiogram 11/23/2022 with focal hypokinesis. Mild pulmonary hypertension and EF 55 to 60% with grade 3 diastolic dysfunction and normal left ventricular wall motion. At home -Lasix 20 mg T, R, Sa and Sun. Takes Lasix 40 mg M, W, F; IV Lasix 40 mg once a day Strict input and output monitoring Will need to follow-up chest x-ray after discharge to ensure resolution 12/25 continue Lasix 20mg IV BID added Aldactone COPD: Chronic stable Last admission bronchoscopy with bronchioloalveolar lavage and transbronchial biopsies performed Final path: a few degenerate mesothelial cells are all seen. Negative for malignancy After recent admission was sent home on supplemental O2, 1 L NC History of pleural effusions: Likely secondary to heart failure diastolic dysfunction. No peripheral edema Thoracentesis x3 at [facility] and x1 [facility] [place] 09/13 Last thoracentesis 11/23 with 1.5 L pleural fluid removed. Transudative in nature. HLD: Chronic stable Takes simvastatin; continue Anxiety and depression: Chronic stable Takes sertraline; continue Disposition: PCP: Dr. Bernal CODE STATUS: Full code VTE prophylaxis: Heparin gtt Admission and Anticipated Discharge Date Admission Date: December 23, 2022 Subjective ff up for A fib, etc seen resting in bed, comfortable states he feels improving overall no chest pain, dyspnea, palpitations, dizziness has poor appetite no other symptoms Review of Systems Review of Systems: all noted and negative except for above Physical Exam Physical Exam: General- oriented x 3, not in distress, speaks in sentences with no effort or accessory muscle use Eyes- anicteric Neck- no JVD Lungs- mild rales at the bases Heart- normal rate, regular rhythm; no murmurs Abdomen- normal bowel sounds, nondistended, soft, nontender Extremities- no pretibial edema, no calf tenderness Neuro- alert, oriented x 3; no gross focal neurologic deficits Skin- warm & dry Results & Data Results & Data Vital Signs (Past 12 Hours) Vital Signs Temp Pulse Pulse Resp BP Pulse Ox O2 Del Method 12/25/22 16:17 91 H 12/25/22 16:02 36.6 C 82 18 101/63 94 Room Air 12/25/22 11:51 36.5 C 104 H 18 89/50 L 91 Room Air 12/25/22 11:47 Nasal Cannula 12/25/22 07:05 37 C 100 H 18 122/76 98 Nasal Cannula O2 Flow Rate 12/25/22 16:17 12/25/22 16:02 12/25/22 11:51 12/25/22 11:47 1 12/25/22 07:05 1 all noted and reviewed including below
[2022-12-25] MEDS: SIMVASTATIN 40 MG TAB PO SCH (20:12)
[2022-12-26 00:24] LABS: Partial Thromboplastin Ratio 1.9
[2022-12-26 00:29] LABS: Partial Thromboplastin Time 52.3 Seconds (21.0-31.0)
[2022-12-26 06:53] LABS: Basophils # (auto) 0.03 K/uL (0.00-0.20); Basophils % (auto) 0.3 %; Eosinophils # (auto) 0.05 K/uL (0.00-0.50); Eosinophils % (auto) 0.6 %; Hemoglobin 10.4 g/dl (14.0-18.0); Immature Granulocytes # (auto) 0.04 K/uL (0.01-0.20); Immature Granulocytes % (auto) 0.5 %; Lymphocytes # (auto) 0.69 K/uL (1.20-3.40); Lymphocytes % (auto) 7.8 %; Mean Corpuscular Hemoglobin 31.5 pg (25.0-34.0); Mean Corpuscular Hgb Conc 32.5 g/dL (32.0-36.0); Mean Platelet Volume 10.2 fL (9.4-12.4); Monocytes # (auto) 0.43 K/uL (0.11-0.59); Monocytes % (auto) 4.9 %; Neutrophils # (auto) 7.62 K/uL (1.40-6.50); Neutrophils % (auto) 85.9 %; Platelet Count 312 K/uL (130-400); RDW Coefficient of Variation 16.3 % (11.5-14.5); RDW Standard Deviation 58.2 fL (36.4-46.3); White Blood Count 8.86 K/ul (4.8-10.8)
[2022-12-26 07:33] LABS: BUN Creatinine Ratio 19.8 (10-20); Calcium 8.4 mg/dl (8.6-10.3); Creatinine Clr Calc Pharmacy 67.1 ml/min; Est GFR (African American) 98.7 ml/min; Est GFR (Non-African American) 85.1 ml/min; Potassium 3.6 mmol/L (3.5-5.1)
[2022-12-26] MEDS ORDERED: POTASSIUM CHLORIDE CRTAB 20 MEQ TABCR PO STA (07:41)
[2022-12-26 07:45] LABS: Partial Thromboplastin Ratio 1.7
[2022-12-26] MEDS: FUROSEMIDE INJ 20 MG/2 ML VIAL IV SCH ×2 (08:14→13:58)
[2022-12-26] MEDS: METOPROLOL TARTRATE 25 MG TAB PO SCH (08:15)
[2022-12-26] MEDS: FLUTICASONE PROPIONATE NA SPR 16 GM BTL SCH (08:15)
[2022-12-26] MEDS: SPIRONOLACTONE 12.5 MG TAB PO SCH (08:16)
[2022-12-26] MEDS: SERTRALINE HCL 50 MG TABLET PO SCH (08:16)
--- NOTE | 2022-12-26 09:23 | Cardiology Progress Note ---
Date of Service December 26, 2022 Assessment & Plan (1) New onset a-fib: (2) Atrial fibrillation with rapid ventricular response: (3) Heart failure with preserved ejection fraction: (4) Bilateral pleural effusion: Plan New onset symptomatic atrial fibrillation with a rapid ventricular response. Duration unknown. [id number] Score 4 points. Hypotension and underlying pulmonary disease complicating management. - Change metoprolol tartrate to metoprolol succinate 75 mg BID. - Continue Digoxin 125 mcg daily for now - Heparin to long-term anticoagulation (Eliquis) Heart failure with preserved ejection fraction with associated left greater than right pleural effusions - Continue IV furosemide 40 mg/day and spironolactone - Additional potassium chloride dosing today as ordered. - Monitor I/O's and weight daily on the same standing scale Elevated troponin. Secondary to the above. Myocardial calcifications. ? Etiology Recommend further evaluation of the unplanned weight loss, early satiety, nausea. Admission and Anticipated Discharge Date Admission Date: December 23, 2022 Supervising Physician Co-Signing Physician Notes Patient seen and examined at the bedside. Symptoms unchanged. Resting comfortably. Heart rate remains borderline elevated. Denies palpitations, lightheadedness, or dizziness. No orthopnea or PND. Fluid balance mildly negative. PE: Tachycardia, borderline hypotensive. General: NAD, cachectic, pale. Heart: Irregular rhythm, borderline tachycardic, normal S1-S2. Lungs: Diminished breath sounds left base and mid lung lopez. No wheeze. Extremities: No edema. A/P: Agree with above PA-C history, physical exam, assessment and plan. Titrate metoprolol to 75 mg twice daily. Continue digoxin, IV furosemide, and spironolactone. IV heparin may be transition to Eliquis at discharge. Consider GI evaluation of early satiety, weight loss, poor appetite. Subjective Patient seen and examined. Chart, medications, and telemetry reviewed. Feeling OK. Less chest congestion/phlegm. No chest pain. No palpitations. Breathing OK. No orthopnea, PND, or edema. No dizziness. No subjective fevers or chills. Telemetry: Atrial fibrillation with fair rate control, 90's to 110 bpm. Review of Systems Review of Systems: Complete review of systems is otherwise as stated above, negative, noncontributory Physical Exam Physical Exam: General: A&Ox3. NAD. Cachectic HENT: Normocephalic. Atraumatic. Eyes: PER. Conjunctiva pink, sclera clear. Neck: No carotid bruits. + JVD. Heart: Irregularly irregular at 100 bpm. Systolic murmur heard at the lower left sternal border. No rub. PMI is nondisplaced. Lungs: Absent breath sounds at the bases. + Rales. No wheeze. Abdomen: +BS. Soft. Nontender. No masses or organomegaly. Extremities: No edema. No clubbing. No cyanosis. Limited neurological examination is without focal deficits. Pulses: radial=2/4, posterior tibial=1/4. Results & Data Vital Signs (Past 12 Hours) Vital Signs Temp Pulse Pulse Resp BP Pulse Ox O2 Del Method 12/26/22 07:49 36.4 C L 112 H 19 122/75 90 Room Air 12/26/22 04:15 36.4 C L 109 H 18 117/81 90 Room Air 12/25/22 22:02 91 H 12/25/22 22:00 36.7 C 61 18 105/63 92 Room Air Laboratory Results Coagulation 12/25/22 12/25/22 12/26/22 Range/Units 15:43 23:05 06:07 APTT 34.7 H 52.3 H* 49.0 H* (21.0-31.0) Seconds CBC 12/26/22 Range/Units 06:07 WBC 8.86 (4.8-10.8) K/ul RBC 3.30 L (4.70-6.10) M/uL Hgb 10.4 L (14.0-18.0) g/dl Hct 32.0 L (42.0-52.0) % Plt Count 312 (130-400) K/uL Neut # (Auto) 7.62 H (1.40-6.50) K/uL Lymph # (Auto) 0.69 L (1.20-3.40) K/uL [place] # (Auto) 0.43 (0.11-0.59) K/uL Eos # (Auto) 0.05 (0.00-0.50) K/uL Baso # (Auto) 0.03 (0.00-0.20) K/uL Comprehensive Metabolic Panel 12/26/22 Range/Units 06:07 Sodium 136 (136-145) mmol/L Potassium 3.6 (3.5-5.1) mmol/L Chloride 96 L (98-107) mmol/L Carbon Dioxide 35 H (21-32) mmol/L BUN 16 (6-23) mg/dl Creatinine 0.81 (0.6-1.4) mg/dl Glucose 98 (70-99(Fasting)) mg/dl Calcium 8.4 L (8.6-10.3) mg/dl Intake and Output 12/25/22 12/26/22 12/26/22 22:59 06:59 14:59 Intake Total 126.5 / 834.717 357.933 / 357.933 Output Total 200 / 1650 250 / 1650 50 / 50 Balance -73.5 / -815.283 -250 / -815.283 307.933 / 307.933 Intake: IV 66.5 / 374.717 357.933 / 357.933 Heparin Sodium/Dextrose 25,000 66.5 / 374.717 357.933 / 357.933 units In 500 ml @ 1,300 UNITS/ HR 26 mls/hr IV .[id number] [facility] Rx #:[id number] Oral 60 / 460 Output: Urine 200 / 1650 250 / 1650 50 / 50
[2022-12-26] MEDS ORDERED: METOPROLOL SUCC 50MG EXT REL TAB PO ONE (09:30)
--- NOTE | 2022-12-26 12:20 | XRay Report ---
XR chest 2V PA/lateral CLINICAL HISTORY: chf, pleural effusions TECHNIQUE: 2 views of the chest were obtained. Comparison: Comparison is made to chest radiograph 12/23/2022 FINDINGS: No lines and tubes are seen. Cardiomegaly is noted. The aortic arch is calcified. Redemonstration of left ventricular calcifications. Multifocal airspace opacities are seen. Moderate left and small righ t pleural effusions again seen. IMPRESSION: 1. Multifocal airspace opacities are slightly increased from prior exam which may represent worsenin g pulmonary edema and/or multifocal pneumonia. 2. Moderate left and small right pleural effusions. ACT 112: Negative or not required by law. Electronically signed by: Gideon Lee M.D. 12/26/2022 12:19 PM
[2022-12-26] MEDS: HEPARIN SODIUM/DEXTROSE 25,000 UNITS/500 ML BAG IV SCH (13:58)
[2022-12-26] MEDS: DIGOXIN 0.125 MG TAB PO SCH (16:50)
--- NOTE | 2022-12-26 18:40 | Hospitalist Progress Note ---
Date of Service December 26, 2022 Assessment & Plan (1) New onset a-fib: (2) HFrEF (heart failure with reduced ejection fraction): (3) History of pleural effusion: (4) Hyperlipidemia: (5) COPD (chronic obstructive pulmonary disease): (6) Anxiety and depression: Plan: (1) New onset a-fib: (2) HFrEF (heart failure with reduced ejection fraction): (3) History of pleural effusion: (4) Hyperlipidemia: (5) COPD (chronic obstructive pulmonary disease): (6) Anxiety and depression: Plan per admitting service notes with addendum: Mr. Matamoros is a 77-year-old male that presented to the [facility] ED by recommendation of his application processor as he was at an outpatient appointment today and found to be in rapid A-fib. He recently was hospitalized 11/22 to 11/27 with recurrent note pleural effusions and pneumonia. During his last admission he underwent a bronchoscopy with bronco alveolar lavage and transbronchial biopsies along with a thoracentesis on 11/23 for 1.5L pleural fluid removal. Biopsies negative for malignancy. Echocardiogram 11/23/2022 with focal hypokinesis. Mild pulmonary hypertension and EF 55 to 60% with grade 3 diastolic dysfunction and normal left ventricular wall motion. Additional past medical history includes HFrEF, COPD (new supplemental O2), HFrEF, and HLD. No leukocytosis today and otherwise CBC and BMP unremarkable. Mag 2.0, TSH 1.795. BNP elevated 1438. Negative for COVID, influenza, RSV. Atrial fibrillation with RVR Patient was sent to the ED after he was found to have A-fib during his outpatient visit to application processor EKG on admission reviewed personally; atrial fibrillation with ventricular rate of 122. High sensitive troponin around 25-30 which is his baseline. Mg 2.0, TSH 1.795 [id number] 4 Last Echocardiogram 11/23/2022 with focal hypokinesis. Mild pulmonary hypertensi on and EF 55 to 60% with grade 3 diastolic dysfunction and normal left ventricular wall motion. He is started on metoprolol and digoxin for rate control by cardiology Also, on heparin drip for anticoagulation Continue to monitor on telemetry 12/26 increased Metoprolol to 75 BID continue Digoxin continue Heparin Acute on chronic HFrEF: BNP 1438 CXR personally reviewed: Cardiomegaly and emphysema with evidence of congestive failure. Multifocal airspace opacities are again seen throughout both lungs. This could represent pulmonary edema and/or multifocal pneumonia. Clinical correlation will be required and radiographic follow-up to resolution is recommended. Left larger than right pleural effusions with dependent consolidation. Last Echocardiogram 11/23/2022 with focal hypokinesis. Mild pulmonary hypertension and EF 55 to 60% with grade 3 diastolic dysfunction and normal left ventricular wall motion. At home -Lasix 20 mg T, R, Sa and Sun. Takes Lasix 40 mg M, W, F; IV Lasix 40 mg once a day Strict input and output monitoring Will need to follow-up chest x-ray after discharge to ensure resolution 12/26 continue Lasix 20mg IV BID added Aldactone Weight Loss, Poor Appetite s/p Bronch last month, Biopsy negative for malignancy CT abd/pelvis from last month: no mass, signs of CA GI and Nutrition consult COPD: Chronic stable Last admission bronchoscopy with bronchioloalveolar lavage and transbronchial biopsies performed Final path: a few degenerate mesothelial cells are all seen. Negative for malignancy After recent admission was sent home on supplemental O2, 1 L NC History of pleural effusions: Likely secondary to heart failure diastolic dysfunction. No peripheral edema Thoracentesis x3 at [facility] and x1 [facility] 09/13 Last thoracentesis 11/23 with 1.5 L pleural fluid removed. Transudative in nature. HLD: Chronic stable Takes simvastatin; continue Anxiety and depression: Chronic stable Takes sertraline; continue Disposition: PCP: Dr. Bernal CODE STATUS: Full code VTE prophylaxis: Heparin gtt Admission and Anticipated Discharge Date Admission Date: December 23, 2022 Subjective ff up for chf, etc seen resting in bed, comfortable states he feels he his improving overall breathing is better no chest pain, dyspnea, palpitations, dizziness no other symptom Review of Systems Review of Systems: all noted and negative except for above Physical Exam Physical Exam: General- oriented x 3, not in distress, speaks in sentences with no effort or accessory muscle use Eyes- anicteric Neck- no JVD Lungs- mild rales at the bases Heart- normal rate, regular rhythm; no murmurs Abdomen- normal bowel sounds, nondistended, soft, nontender Extremities- no pretibial edema, no calf tenderness Neuro- alert, oriented x 3; no gross focal neurologic deficits Skin- warm & dry Results & Data Results & Data Vital Signs (Past 12 Hours) Vital Signs Temp Pulse Pulse Resp BP Pulse Ox O2 Del Method 12/26/22 16:50 100 H 12/26/22 15:12 36.8 C 100 H 20 118/76 95 Room Air 12/26/22 14:01 100 H 12/26/22 09:00 103 H 12/26/22 11:12 36.5 C 90 18 112/73 99 Nasal Cannula 12/26/22 07:49 36.4 C L 112 H 19 122/75 90 Room Air O2 Flow Rate 12/26/22 16:50 12/26/22 15:12 12/26/22 14:01 12/26/22 09:00 12/26/22 11:12 1 12/26/22 07:49 all noted and reviewed including below
[2022-12-26] MEDS: METOPROLOL SUCC 25MG EXT REL TAB PO SCH (21:13)
[2022-12-26] MEDS: SIMVASTATIN 40 MG TAB PO SCH (21:14)
[2022-12-27] MEDS: FUROSEMIDE INJ 20 MG/2 ML VIAL IV SCH ×3 (06:43→13:16)
[2022-12-27] MEDS: HEPARIN SODIUM/DEXTROSE 25,000 UNITS/500 ML BAG IV SCH (06:43)
[2022-12-27] MEDS: SERTRALINE HCL 50 MG TABLET PO SCH (07:25)
[2022-12-27] MEDS: FLUTICASONE PROPIONATE NA SPR 16 GM BTL SCH (07:26)
[2022-12-27] MEDS: METOPROLOL SUCC 25MG EXT REL TAB PO SCH (07:26)
[2022-12-27] MEDS: SPIRONOLACTONE 12.5 MG TAB PO SCH (07:26)
[2022-12-27] MEDS ORDERED: POTASSIUM CHLORIDE CRTAB 20 MEQ TABCR PO ONE ×2 (08:24→14:00)
[2022-12-27] MEDS ORDERED: SPIRONOLACTONE 25 MG TAB PO SCH ×2 (09:00→19:30)
--- NOTE | 2022-12-27 09:08 | Gastrointestinal Consultation ---
Date of Consultation December 27, 2022 Assessment & Plan (1) Decreased appetite: Plan 77 year old male with history of CHF, dyslipidmia, COPD, pulmonary HTN, glaucoma, anxiety/depression, admitted w/ new onset afib w/ RVR GI asked to evaluate for weight loss and decreased appetite. He denies abd pain, nausea/vomiting, GERD, dysphagia, black or bloody stools. Given presentating with new onset afib w/ RVR and heparin gtt, recommend OP evlauation Recommend CT Chest/Abd/Pelvis w/ IV and PO contrast Recommend OP EGD/Colonoscopy Agree w/ nutrition consultation Recall GI as needed. Thank you for allowing us to participate in the care of this patient. Please call with any acute changes, questions or concerns. Please see addendum below with additional recommendation from my supervising physician. Supervising Physician Co-Signing Physician Notes Consult is for Weight loss and decreased appetite however admitted with new onset afib with rvr. Recent colon in 04/15. Agree with further recommendations as documented. History of Present Illness Reason for Consultation: weight loss, decreased appetite Requesting Physician: Ya Attending Physician: Caesar Pandya MD History of Present Illness 77 year old male with history of CHF, dyslipidmia, COPD, pulmonary HTN, glaucoma, anxiety/depression, admitted w/ new onset afib w/ RVR GI asked to evaluate for weight loss and decreased appetite. Of note, he is presently on a heparin gtt. He reports decreased appetite w/ weight loss for a few months at least. Denies any GI symptoms. No abd pain, nausea/vomiting. Denies GERD. No dysphagia. Bowels moving daily. No black or bloody stools. OP [facility] report suggests between a 20/[address] ABD 2022: . 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 Bowel shows no direct evidence of ischemic change. Otherwise, no acute or significant intra-abdominal findings. Please refer to CT chest of the same date, reported separately. Colon 2022: The examined colon appeared normal. - Internal hemorrhoids. Colon 2016: Impression: - The examined portion of the ileum was normal. - Three polyps at the splenic flexure, at the hepatic flexure and in the distal ascending colon, removed with a cold snare. Resected and retrieved. Allergies Allergy/AdvReac Type Severity Reaction Status Date / Time No Known Allergies Allergy Verified 11/22/22 18:33 Home Medications Medication Instructions Recorded Confirmed Type albuterol sulfate 90 mcg/actuation 2 puff inhalation Q4H PRN 11/22/22 12/23/22 History aerosol inhaler COUGH/SHORTNESS OF BREATH/WHEEZING cholecalciferol (vitamin D3) 25 25 mcg PO DAILY 11/22/22 12/23/22 History mcg (1,000 unit) capsule (Vitamin D3) clobetasol 0.05 % topical cream 1 applic topical BID PRN Itching 11/22/22 12/23/22 History fluticasone propionate 50 1 spray intranasal DAILY 11/22/22 12/23/22 History mcg/actuation nasal spray,suspension guaifenesin 600 mg tablet, 600 mg PO Q12H 11/22/22 12/23/22 History extended release 12 hr ipratropium 0.5 mg-albuterol 3 mg 3 ml inhalation Q4H PRN Wheezing 11/22/22 12/23/22 History (2.5 mg base)/3 mL nebulization soln latanoprost 0.005 % eye drops 1 drp OPB PM 11/22/22 12/23/22 History levobunolol 0.5 % eye drops 1 drp OPB BID 11/22/22 12/23/22 History yrykaxhjqtic-gyrgyzaq-dxgudp 1 tab PO DAILY 11/22/22 12/23/22 History tablet (Multivitamin 50 Plus tablet) ondansetron HCl 4 mg tablet 4 mg PO Q8H PRN NAUSEA/VOMITING 11/22/22 12/23/22 History psyllium husk 0.4 gram capsule 0.4 g PO DAILY 11/22/22 12/23/22 History (Fiber (psyllium husk)) sertraline 50 mg tablet 50 mg PO DAILY 11/22/22 12/23/22 History sildenafil 100 mg tablet 100 mg PO DAILY PRN Sexual Activity 11/22/22 12/23/22 History simvastatin 40 mg tablet 40 mg PO HS 11/22/22 12/23/22 History triamcinolone acetonide 0.1 % 1 applic topical DAILY PRN Itching 11/22/22 12/23/22 History topical cream furosemide 20 mg tablet (Lasix) 20 mg PO UD #60 tabs 11/27/22 12/23/22 Rx magnesium oxide 400 mg (241.3 mg 400 mg PO BID 30 days #60 tabs 11/27/22 12/23/22 Rx magnesium) tablet potassium chloride 10 mEq 10 meq PO DAILY 30 days #30 tabs 11/27/22 12/23/22 Rx tablet,extended release(part/cryst) Patient History Medical History (Updated 12/27/22 @ 09:07 by VALERIO Gill) Anxiety and depression COPD (chronic obstructive pulmonary disease) Decreased appetite History of pleural effusion History of tobacco abuse 43 pk yr hx; stopped 2007 Hyperlipidemia New onset a-fib Pleural effusion chronic, recurrent since at least 2019; s/p multiple taps in 2022 transudative Recurrent pneumonia Weight loss 22 lb 10/2021 - 10/2022 based on [facility] clinic VS; 13% of TBW; weighed 180 lb Sept 2020 [facility] Surgical History History of thoracentesis x 3 at [facility] x 1 [facility] 08/2022 Family History Sister Cancer Diabetes Social History Smoking Status: Never smoker Tobacco Type: Cigarettes Hx Alcohol Use: No Hx Substance Use: No Preferred Language: French Communication Ability: Effective Director Of Strategic Programs Required: No Beliefs That Will Affect Care: None Current Living Situation: Spouse Other Information That Helps Us Care for You: No Feels Safe at Home: Yes Safety Concerns: Feels Safe At This Time Assistive Devices: Oxygen - Continuous Review of Systems Review of Systems: All systems reviewed & are unremarkable except as noted in HPI & below Physical Exam Constitutional: WD/WN, vitals as above Respiratory: normal respiratory effort, lungs clear to auscultation Cardiovascular: Rate/Rhythm: + tachycardic Gastrointestinal (Abdomen): normal bowel sounds, soft, nontender, no hepatosplenomegaly Skin: no rashes, warm and dry Results & Data Vital Signs (Past 12 Hours) Vital Signs Temp Pulse Pulse Resp BP Pulse Ox O2 Del Method 12/27/22 08:11 36.3 C L 91 H 21 104/69 99 Nasal Cannula 12/27/22 07:07 96 H 12/27/22 03:29 36.8 C 95 H 18 115/74 95 Nasal Cannula 12/26/22 22:31 36.7 C 91 H 17 106/70 97 Nasal Cannula 12/26/22 21:09 Nasal Cannula O2 Flow Rate 12/27/22 08:11 1 12/27/22 07:07 12/27/22 03:29 1 12/26/22 22:31 1 12/26/22 21:09 1
[2022-12-27] MEDS ORDERED: SPIRONOLACTONE 12.5 MG TAB PO ONE (10:02)
--- NOTE | 2022-12-27 10:20 | Hospitalist Progress Note ---
Date of Service December 27, 2022 delayed entry date of service noted above Assessment & Plan (1) New onset a-fib: (2) HFrEF (heart failure with reduced ejection fraction): (3) History of pleural effusion: (4) Hyperlipidemia: (5) COPD (chronic obstructive pulmonary disease): (6) Anxiety and depression: Plan: (1) New onset a-fib: (2) HFrEF (heart failure with reduced ejection fraction): (3) History of pleural effusion: (4) Hyperlipidemia: (5) COPD (chronic obstructive pulmonary disease): (6) Anxiety and depression: Plan per admitting service notes with addendum: Mr. Matamoros is a 77-year-old male that presented to the [facility] ED by r ecommendation of his core driller helper as he was at an outpatient appointment today and found to be in rapid A-fib. He recently was hospitalized 11/22 to 11/27 with recurrent note pleural effusions and pneumonia. During his last admission he underwent a bronchoscopy with bronco alveolar lavage and transbronchial biopsies along with a thoracentesis on 11/23 for 1.5L pleural fluid removal. Biopsies negative for malignancy. Echocardiogram 11/23/2022 with focal hypokinesis. Mild pulmonary hypertension and EF 55 to 60% with grade 3 diastolic dysfunction and normal left ventricular wall motion. Additional past medical history includes HFrEF, COPD (new supplemental O2), HFrEF, and HLD. No leukocytosis today and otherwise CBC and BMP unremarkable. Mag 2.0, TSH 1.795. BNP elevated 1438. Negative for COVID, influenza, RSV. Atrial fibrillation with RVR Patient was sent to the ED after he was found to have A-fib during his outpatient visit to core driller helper EKG on admission reviewed personally; atrial fibrillation with ventricular rate of 122. High sensitive troponin around 25-30 which is his baseline. Mg 2.0, TSH 1.795 [id number] 4 Last Echocardiogram 11/23/2022 with focal hypokinesis. Mild pulmonary hypertension and EF 55 to 60% with grade 3 diastolic dysfunction and normal left ventricular wall motion. He is started on metoprolol and digoxin for rate control by cardiology Also, on heparin drip for anticoagulation Continue to monitor on telemetry 12/26 increased Metoprolol to 75 BID continue Digoxin continue Heparin 12/27 stable overall continue Metoprolol succinate 75mg BID Digoxin 0.125mg daily Eliquis 5mg BID Acute on chronic HFpEF BNP 1438 CXR personally reviewed: Cardiomegaly and emphysema with evidence of congestive failure. Multifocal airspace opacities are again seen throughout both lungs. This could represent pulmonary edema and/or multifocal pneumonia. Clinical correlation will be required and radiographic follow-up to resolution is recommended. Left larger than right pleural effusions with dependent consolidation. Last Echocardiogram 11/23/2022 with focal hypokinesis. Mild pulmonary hypertension and EF 55 to 60% with grade 3 diastolic dysfunction and normal left ventricular wall motion. At home -Lasix 20 mg T, R, Sa and Sun. Takes Lasix 40 mg M, W, F; IV Lasix 40 mg once a day Strict input and output monitoring Will need to follow-up chest x-ray after discharge to ensure resolution 12/27 continue Lasix 40mg in AM, 20mg at PM added Aldactone 25mg daily, continue ff up with Marketer in 2 weeks Weight Loss, Poor Appetite s/p Bronch last month, Biopsy negative for malignancy CT abd/pelvis from last month: no mass, signs of CA GI and Nutrition consulted outpatient ff up COPD: Chronic stable Last admission bronchoscopy with bronchioloalveolar lavage and transbronchial biopsies performed Final path: a few degenerate mesothelial cells are all seen. Negative for malignancy After recent admission was sent home on supplemental O2, 1 L NC History of pleural effusions: Likely secondary to heart failure diastolic dysfunction. No peripheral edema Thoracentesis x3 at [facility] and [place]1 [facility] [place] Last thoracentesis 11/23 with 1.5 L pleural fluid removed. Transudative in nature. HLD: Chronic stable Takes simvastatin; continue Anxiety and depression: Chronic stable Takes sertraline; continue Disposition: PCP: Dr. Bernal CODE STATUS: Full code VTE prophylaxis: Heparin gtt plan of care discussed with patient and his in detail and at length all questions answered they are understanding, agreeable, comfortable with the plan of care Admission and Anticipated Discharge Date Admission Date: December 23, 2022 Subjective ff up for CHF, etc seen resting in bed, comfortable states he feels fine overall breathing is fine no cough, no fever/chills no chest pain, dyspnea, palpitations, dizziness no other symptoms states he is ready and would like to be discharged today Review of Systems Review of Systems: all noted and negative except for above Physical Exam Physical Exam: General- oriented x 3, not in distress, speaks in sentences with no effort or accessory muscle use Eyes- anicteric Neck- no JVD Lungs- clear breath sounds bilaterally, no rales/wheezes Heart- normal rate, regular rhythm; no murmurs Abdomen- normal bowel sounds, nondistended, soft, nontender Extremities- no pretibial edema, no calf tenderness Neuro- alert, oriented x 3; no gross focal neurologic deficits Skin- warm & dry Results & Data Results & Data Vital Signs (Past 12 Hours) Vital Signs Temp Pulse Pulse Resp BP Pulse Ox O2 Del Method 12/27/22 10:17 36.5 C 92 H 18 113/79 95 Room Air 12/27/22 09:26 Nasal Cannula 12/27/22 08:11 36.3 C L 91 H 21 104/69 99 Nasal Cannula 12/27/22 07:07 96 H 12/27/22 03:29 36.8 C 95 H 18 115/74 95 Nasal Cannula 12/26/22 22:31 36.7 C 91 H 17 106/70 97 Nasal Cannula O2 Flow Rate 12/27/22 10:17 12/27/22 09:26 1 12/27/22 08:11 1 12/27/22 07:07 12/27/22 03:29 1 12/26/22 22:31 1 all noted and reviewed including below
[2022-12-27 10:49] LABS: Partial Thromboplastin Ratio 1.1; Partial Thromboplastin Time 32.4 Seconds (21.0-31.0)
[2022-12-27] MEDS ORDERED: HEPARIN IV BOLUS 4,000 UNITS in SYRINGE 0 ML IV ONE (11:05)
[2022-12-27 11:45] LABS: Creatinine Clr Calc Pharmacy 61.7 ml/min; Est GFR (African American) 95.4 ml/min; Est GFR (Non-African American) 82.3 ml/min; Potassium 3.9 mmol/L (3.5-5.1)
--- NOTE | 2022-12-27 12:03 | Cardiology Progress Note ---
Date of Service December 27, 2022 Assessment & Plan (1) New onset a-fib: (2) Atrial fibrillation with rapid ventricular response: (3) Heart failure with preserved ejection fraction: (4) Bilateral pleural effusion: Plan New onset symptomatic atrial fibrillation with a rapid ventricular response. Duration unknown. [id number] Score 4 points. Hypotension and underlying pulmonary disease complicating management. - Metoprolol succinate 75 mg BID. - Digoxin 125 mcg daily for now - Eliquis 5 mg twice per day Heart failure with preserved ejection fraction with associated left greater than right pleural effusions - Furosemide 40 mg in the AM and 20 mg in the early afternoon - Spironolactone 25 mg/day in the morning Elevated troponin. Secondary to the above. Myocardial calcifications. ? Etiology Undergoing evaluation of unplanned weight loss, early satiety, nausea. Close outpatient cardiology follow-up to be arranged. Admission and Anticipated Discharge Date Admission Date: December 23, 2022 Supervising Physician Co-Signing Physician Notes Patient seen and examined at the bedside. Symptoms unchanged. Resting c omfortably. Heart rate improved on telemetry. Denies palpitations, lightheadedness, or dizziness. No orthopnea or PND. Fluid balance mildly negative. PE: Tachycardia, borderline hypotensive. General: NAD, cachectic, pale. Heart: Irregular rhythm, borderline tachycardic, normal S1-S2. Lungs: Diminished breath sounds left base and mid lung lopez. No wheeze. Extremities: No edema. A/P: Agree with above PA-C history, physical exam, assessment and plan. Continue cardiovascular medications as outlined above. Close outpatient cardiology follow-up. No further inpatient cardiac testing or intervention recommended. Cardiology will sign off. Subjective Patient seen and examined. Chart, medications, and telemetry reviewed. Feeling OK, unchanged compared to yesterday. Requesting discharge. No chest pain. No palpitations. Breathing OK. No orthopnea, PND, or edema. No dizziness. No subjective fevers or chills. Telemetry: Atrial fibrillation with acceptable rate control, heart rates predominantly in the 90s Review of Systems Review of Systems: Complete review of systems is otherwise as stated above, negative, noncontributory Physical Exam Physical Exam: General: A&Ox3. NAD. Cachectic HENT: Normocephalic. Atraumatic. Eyes: PER. Conjunctiva pink, sclera clear. Neck: No carotid bruits. + JVD. Heart: Irregularly irregular at 86 bpm. Systolic murmur heard at the lower left sternal border. No rub. PMI is nondisplaced. Lungs: Absent breath sounds at the bases. + Rales. No wheeze. Abdomen: +BS. Soft. Nontender. No masses or organomegaly. Extremities: No edema. No clubbing. No cyanosis. Limited neurological examination is without focal deficits. Pulses: radial=2/4, posterior tibial=1/4. Results & Data Vital Signs (Past 12 Hours) Vital Signs Temp Pulse Pulse Resp BP Pulse Ox O2 Del Method 12/27/22 10:17 36.5 C 92 H 18 113/79 95 Room Air 12/27/22 09:26 Nasal Cannula 12/27/22 08:11 36.3 C L 91 H 21 104/69 99 Nasal Cannula 12/27/22 07:07 96 H 12/27/22 03:29 36.8 C 95 H 18 115/74 95 Nasal Cannula O2 Flow Rate 12/27/22 10:17 12/27/22 09:26 1 12/27/22 08:11 1 12/27/22 07:07 12/27/22 03:29 1 Laboratory Results Coagulation 12/27/22 Range/Units 09:46 APTT 32.4 H (21.0-31.0) Seconds Comprehensive Metabolic Panel 12/27/22 Range/Units 11:10 Sodium 133 L (136-145) mmol/L Potassium 3.9 (3.5-5.1) mmol/L Chloride 92 L (98-107) mmol/L Carbon Dioxide 36 H (21-32) mmol/L BUN 15 (6-23) mg/dl Creatinine 0.88 (0.6-1.4) mg/dl Glucose 112 H (70-99(Fasting)) mg/dl Calcium 9.0 (8.6-10.3) mg/dl Intake and Output 12/26/22 12/27/22 12/27/22 22:59 06:59 14:59 Intake Total 120 / 1055.500 435.5 / 1055.500 107.467 / 107.467 Output Total 750 / 1000 200 / 1000 Balance -630 / 55.500 235.5 / 55.500 107.467 / 107.467 Intake: IV 435.5 / 935.500 107.467 / 107.467 Heparin Sodium/Dextrose 25,000 435.5 / 935.500 107.467 / 107.467 units In 500 ml @ 1,300 UNITS/ HR 26 mls/hr IV .[id number] [facility] Rx #:[id number] Oral 120 / 120 Output: Urine 750 / 1000 200 / 1000 Other: Weight 63.1 kg 63.1 kg Weight Measurement Method Built in [facility]
[2022-12-27] MEDS ORDERED: HEPARIN IV BOLUS 2,000 UNITS in SYRINGE 0 ML IV ONE (12:48)
[2022-12-27] MEDS: DIGOXIN 0.125 MG TAB PO SCH (17:05)
[2022-12-27] MEDS ORDERED: APIXABAN 5 MG TABLET PO SCH ×2 (18:00→19:15)
[2022-12-27] MEDS ORDERED: METOPROLOL SUCC 25MG EXT REL TAB PO SCH (19:15)
[2022-12-27] MEDS ORDERED: DIGOXIN 0.125 MG TAB PO SCH (19:30)
--- NOTE | 2023-01-01 12:35 | Discharge Summary ---
Discharge Summary Date of Service January 01, 2023 Notes For Next Care Provider Medication Changes From Visit New medications: Metoprolol succinate 75mg BID Digoxin 0.125mg daily Eliquis 5mg BID Lasix 40mg in AM, 20mg at PM Aldactone 25mg daily, Admission HPI Per Admitting Provider Mr. Matamoros is a 77-year-old male that presented to the [facility] ED by recommendation of his ostomy care nurse as he was at an outpatient appointment today and found to be in rapid A-fib. He recently was hospitalized 11/22 to 11/27 with recurrent note pleural effusions and pneumonia. During his last admission he underwent a bronchoscopy with bronco alveolar lavage and transbronchial biopsies along with a thoracentesis on 11/23 for 1.5L pleural fluid removal. Additional past medical history includes HFrEF, COPD and HLD. No leukocytosis today and otherwise CBC and BMP unremarkable. Mag 2.0, TSH 1.795. BNP elevated 1438. Negative for COVID, influenza, RSV. Echocardiogram 11/23/2022 with focal h ypokinesis. Mild pulmonary hypertension and EF 55 to 60% with grade 3 diastolic dysfunction and normal left ventricular wall motion. Mag 2.0, TSH 1.795. BNP elevated 1438. Negative for COVID, influenza, RSV. Will check procal and keep NPO pending cardiology consultation. Suspect this individual has been in A-fib over the last week when he started to feel overall exhausted. [id number] score 4. Add Metoprolol PO and PRN IV for HR > 130. Low dose Heparin gtt. Suspect this individual has been in A-fib over the last week when he started to feel overall exhausted. [id number] score 4. Patient reports that he feels similarly to how he felt when he was admitted before. He states that there have not been any real changes since he has returned home. He reports not having energy or appetite. Pt denies HARRIS, dizziness, orthopnea, SOB at rest, Chest pain, palpitations, increased swelling, urine or bowel changes, no fevers or chills, N/V/D, hematochezia, recent falls or trauma. Denies alcohol, tobacco or illicit drug use. Patient will be admitted for further evaluation and management. Please see A/P for further details. Admission Exam Per Admitting Provider On examination: Minimal shortness of breath at rest Has tachycardia and borderline low blood pressure without fever Chestdecreased breath sounds bilaterally with occasional crackles at the bases HeartS1-S2, irregular Abdomenbenign Extremities trace edema bilaterally more on the right than the left Principal Dx & Hospital Course #1 = Principal Diagnosis (1) New onset a-fib: (2) HFrEF (heart failure with reduced ejection fraction): (3) History of pleural effusion: (4) Hyperlipidemia: (5) COPD (chronic obstructive pulmonary disease): (6) Anxiety and depression: (1) New onset a-fib: (2) HFrEF (heart failure with reduced ejection fraction): (3) History of pleural effusion: (4) Hyperlipidemia: (5) COPD (chronic obstructive pulmonary disease): (6) Anxiety and depression: Plan per admitting service notes with addendum: Mr. Matamoros is a 77-year-old male that presented to the [facility] ED by recommendation of his ostomy care nurse as he was at an outpatient appointment today and found to be in rapid A-fib. He recently was hospitalized 11/22 to 11/27 with recurrent note pleural effusions and pneumonia. During his last admission he underwent a bronchoscopy with bronco alveolar lavage and transbronchial biopsies along with a thoracentesis on 11/23 for 1.5L pleural fluid removal. Biopsies negative for malignancy. Echocardiogram 11/23/2022 with focal hypokinesis. Mild pulmonary hypertension and EF 55 to 60% with grade 3 diastolic dysfunction and normal left ventricular wall motion. Additional past medical history includes HFrEF, COPD (new supplemental O2), HFrEF, and HLD. No leukocytosis today and otherwise CBC and BMP unremarkable. Mag 2.0, TSH 1.795. BNP elevated 1438. Negative for COVID, influenza, RSV. Atrial fibrillation with RVR Patient was sent to the ED after he was found to have A-fib during his outpatient visit to ostomy care nurse EKG on admission reviewed personally; atrial fibrillation with ventricular rate of 122. High sensitive troponin around 25-30 which is his baseline. Mg 2.0, TSH 1.795 [id number] 4 Last Echocardiogram 11/23/2022 with focal hypokinesis. Mild pulmonary hypertension and EF 55 to 60% with grade 3 diastolic dysfunction and normal left ventricular wall motion. He is started on metoprolol and digoxin for rate control by cardiology Also, on heparin drip for anticoagulation Continue to monitor on telemetry 12/26 increased Metoprolol to 75 BID continue Digoxin continue Heparin 12/27 stable overall continue Metoprolol succinate 75mg BID Digoxin 0.125mg daily Eliquis 5mg BID Acute on chronic HFpEF BNP 1438 CXR personally reviewed: Cardiomegaly and emphysema with evidence of congestive failure. Multifocal airspace opacities are again seen throughout both lungs. This could represent pulmonary edema and/or multifocal pneumonia. Clinical correlation will be required and radiographic follow-up to resolution is recommended. Left larger than right pleural effusions with dependent consolidation. Last Echocardiogram 11/23/2022 with focal hypokinesis. Mild pulmonary hypertension and EF 55 to 60% with grade 3 diastolic dysfunction and normal left ventricular wall motion. At home -Lasix 20 mg T, R, Sa and Sun. Takes Lasix 40 mg M, W, F; IV Lasix 40 mg once a day Strict input and output monitoring Will need to follow-up chest x-ray after discharge to ensure resolution 12/27 continue Lasix 40mg in AM, 20mg at PM added Aldactone 25mg daily, continue ff up with Senior Construction Manager in 2 weeks Weight Loss, Poor Appetite s/p Bronch last month, Biopsy negative for malignancy CT abd/pelvis from last month: no mass, signs of CA GI and Nutrition consulted outpatient ff up COPD: Chronic stable Last admission bronchoscopy with bronchioloalveolar lavage and transbronchial biopsies performed Final path: a few degenerate mesothelial cells are all seen. Negative for malignancy After recent admission was sent home on supplemental O2, 1 L NC History of pleural effusions: Likely secondary to heart failure diastolic dysfunction. No peripheral edema [facility] x3 at [facility] [place] [facility] Last thoracentesis 11/23 with 1.5 L pleural fluid removed. Transudative in nature. HLD: Chronic stable Takes simvastatin; continue Anxiety and depression: Chronic stable Takes sertraline; continue Disposition: PCP: Dr. Bernal CODE STATUS: Full code VTE prophylaxis: Heparin gtt plan of care discussed with patient and his in detail and at length all questions answered they are understanding, agreeable, comfortable with the plan of care Discharge Exam General- oriented x 3, not in distress, speaks in sentences with no effort or accessory muscle use Eyes- anicteric Neck- no JVD Lungs- clear breath sounds bilaterally, no rales/wheezes Heart- normal rate, regular rhythm; no murmurs Abdomen- normal bowel sounds, nondistended, soft, nontender Extremities- no pretibial edema, no calf tenderness Neuro- alert, oriented x 3; no gross focal neurologic deficits Skin- warm & dry Updated Medication List Medication Instructions Recorded Confirmed Type albuterol sulfate 90 mcg/actuation 2 puff inhalation Q4H PRN 11/22/22 12/23/22 History aerosol inhaler COUGH/SHORTNESS OF BREATH/WHEEZING cholecalciferol (vitamin D3) 25 25 mcg PO DAILY 11/22/22 12/23/22 History mcg (1,000 unit) capsule (Vitamin D3) clobetasol 0.05 % topical cream 1 applic topical BID PRN Itching 11/22/22 12/23/22 History fluticasone propionate 50 1 spray intranasal DAILY 11/22/22 12/23/22 History mcg/actuation nasal spray,suspension guaifenesin 600 mg tablet, 600 mg PO Q12H 11/22/22 12/23/22 History extended release 12 hr ipratropium 0.5 mg-albuterol 3 mg 3 ml inhalation Q4H PRN Wheezing 11/22/22 12/23/22 History (2.5 mg base)/3 mL nebulization soln latanoprost 0.005 % eye drops 1 drp OPB PM 11/22/22 12/23/22 History levobunolol 0.5 % eye drops 1 drp OPB BID 11/22/22 12/23/22 History [id number]-ouajcwkz-hqxthf 1 tab PO DAILY 11/22/22 12/23/22 History tablet (Multivitamin 50 Plus tablet) ondansetron HCl 4 mg tablet 4 mg PO Q8H PRN NAUSEA/VOMITING 11/22/22 12/23/22 History psyllium husk 0.4 gram capsule 0.4 g PO DAILY 11/22/22 12/23/22 History (Fiber (psyllium husk)) sertraline 50 mg tablet 50 mg PO DAILY 11/22/22 12/23/22 History sildenafil 100 mg tablet 100 mg PO DAILY PRN Sexual Activity 11/22/22 12/23/22 History simvastatin 40 mg tablet 40 mg PO HS 11/22/22 12/23/22 History triamcinolone acetonide 0.1 % 1 applic topical DAILY PRN Itching 11/22/22 12/23/22 History topical cream potassium chloride 10 mEq 10 meq PO DAILY 30 days #30 tabs 11/27/22 12/23/22 Rx tablet,extended release(part/cryst) apixaban 5 mg tablet (Eliquis) 5 mg PO BID 30 days #60 tabs 12/27/22 Rx digoxin 125 mcg (0.125 mg) tablet 0.125 mg PO DAILY@1600 30 days #30 12/27/22 Rx (Digitek) tabs furosemide 20 mg tablet (Lasix) 20 mg PO UD #90 tabs 12/27/22 Rx metoprolol succinate 25 mg 75 mg PO BID 30 days #180 tabs 12/27/22 Rx tablet,extended release 24 hr spironolactone 25 mg tablet 25 mg PO DAILY 30 days #30 tabs 12/27/22 Rx Hospital Stay Data Consultations 12/23/22 18:54 Consult Cardiology Routine ED Decision to Admit Stat 12/26/22 18:30 Consult Gastroenterology Routine Diagnostic Imagining Performed Laboratory Results WBC 8.86 K/ul (4.8-10.8) 12/26/22 06:07 RBC 3.30 M/uL (4.70-6.10) L 12/26/22 06:07 Hgb 10.4 g/dl (14.0-18.0) L 12/26/22 06:07 Hct 32.0 % (42.0-52.0) L 12/26/22 06:07 MCV 97.0 fL (80.0-100.0) 12/26/22 06:07 MCH 31.5 pg (25.0-34.0) 12/26/22 06:07 MCHC 32.5 g/dL (32.0-36.0) 12/26/22 06:07 RDW Std Deviation 58.2 fL (36.4-46.3) H 12/26/22 06:07 RDW Coeff of Lizeth 16.3 % (11.5-14.5) H 12/26/22 06:07 Plt Count 312 K/uL (130-400) 12/26/22 06:07 MPV 10.2 fL (9.4-12.4) 12/26/22 06:07 Immature Gran % (Auto) 0.5 % 12/26/22 06:07 Neut % (Auto) 85.9 % 12/26/22 06:07 Lymph % (Auto) 7.8 % 12/26/22 06:07 Pierce % (Auto) 4.9 % 12/26/22 06:07 Eos % (Auto) 0.6 % 12/26/22 06:07 Baso % (Auto) 0.3 % 12/26/22 06:07 Neut # (Auto) 7.62 K/uL (1.40-6.50) H 12/26/22 06:07 Lymph # (Auto) 0.69 K/uL (1.20-3.40) L 12/26/22 06:07 Pierce # (Auto) 0.43 K/uL (0.11-0.59) 12/26/22 06:07 Eos # (Auto) 0.05 K/uL (0.00-0.50) 12/26/22 06:07 Baso # (Auto) 0.03 K/uL (0.00-0.20) 12/26/22 06:07 Immature Gran # (Auto) 0.04 K/uL (0.01-0.20) 12/26/22 06:07 PT 13.3 Seconds (9.0-12.0) H 12/23/22 16:26 INR 1.2 (0.9-1.1) H 12/23/22 16:26 APTT 32.4 Seconds (21.0-31.0) H 12/27/22 09:46 PTT Ratio 1.1 12/27/22 09:46 Sodium 133 mmol/L (136-145) L 12/27/22 11:10 Potassium 3.9 mmol/L (3.5-5.1) 12/27/22 11:10 Chloride 92 mmol/L (98-107) L 12/27/22 11:10 Carbon Dioxide 36 mmol/L (21-32) H 12/27/22 11:10 Anion Gap 5 (3-11) 12/27/22 11:10 BUN 15 mg/dl (6-23) 12/27/22 11:10 Creatinine 0.88 mg/dl (0.6-1.4) 12/27/22 11:10 Est Cr Clr Drug Dosing 61.7 ml/min 12/27/22 11:10 Est GFR ( Amer) 95.4 ml/min 12/27/22 11:10 Est GFR (Non-Af Amer) 82.3 ml/min 12/27/22 11:10 BUN/Creatinine Ratio 17.0 (10-20) 12/27/22 11:10 Glucose 112 mg/dl (70-99(Fasting)) H 12/27/22 11:10 Calcium 9.0 mg/dl (8.6-10.3) 12/27/22 11:10 Phosphorus 3.0 mg/dl (2.5-4.9) 12/24/22 03:27 Magnesium 2.0 mg/dl (1.7-2.4) 12/23/22 16:26 Total Bilirubin 0.4 mg/dl (0.2-1.0) 12/24/22 03:27 AST 25 U/L (13-39) 12/24/22 03:27 ALT 25 U/L (7-52) 12/24/22 03:27 Alkaline Phosphatase 89 U/L (34-104) 12/24/22 03:27 Troponin I High Sens 28.1 pg/ml (0-20) H 12/23/22 20:17 B-Natriuretic Peptide 1438 pg/ml (0-100) H 12/23/22 16:26 Total Protein 6.2 gm/dl (6.0-8.3) 12/24/22 03:27 Albumin 2.9 gm/dl (3.4-5.0) L 12/24/22 03:27 Globulin 3.3 gm/dl (2.5-4.0) 12/24/22 03:27 Albumin/Globulin Ratio 0.9 (0.9-2) 12/24/22 03:27 Procalcitonin 0.05 ng/ml (0-0.5) 12/23/22 20:17 TSH 1.795 uIu/ml (0.300-4.500) 12/23/22 16:26 Urine Color Cancelled 12/23/22 Unknown Urine Color Yellow 12/23/22 Unknown Urine Appearance Cancelled 12/23/22 Unknown Urine Appearance Clear (Clear) 12/23/22 Unknown Urine pH 6.5 (4.5-7.5) 12/23/22 Unknown Urine pH Cancelled 12/23/22 Unknown Ur Specific [place] 1.022 (1.000-1.030) 12/23/22 Unknown Ur Specific [place] Cancelled 12/23/22 Unknown Urine Protein Cancelled 12/23/22 Unknown Urine Protein Trace (Negative) H 12/23/22 Unknown Urine Glucose (UA) Cancelled 12/23/22 Unknown Urine Glucose (UA) Negative (Negative) 12/23/22 Unknown Urine Ketones Cancelled 12/23/22 Unknown Urine Ketones Trace (Negative) H 12/23/22 Unknown Urine Blood Cancelled 12/23/22 Unknown Urine Blood Negative (Negative) 12/23/22 Unknown Urine Nitrite Cancelled 12/23/22 Unknown Urine Nitrite Negative (Negative) 12/23/22 Unknown Urine Bilirubin Cancelled 12/23/22 Unknown Urine Bilirubin Negative (Negative) 12/23/22 Unknown Urine Urobilinogen Cancelled 12/23/22 Unknown Urine Urobilinogen Negative (Negative) 12/23/22 Unknown Ur Leukocyte Esterase Cancelled 12/23/22 Unknown Ur Leukocyte Esterase Trace (Negative) H 12/23/22 Unknown Urine WBC (Auto) 1-5 /hpf (0-5) 12/23/22 Unknown Urine WBC (Auto) Cancelled 12/23/22 Unknown Urine RBC (Auto) 0-4 /hpf (0-4) 12/23/22 Unknown Urine RBC (Auto) Cancelled 12/23/22 Unknown U Hyaline Cast (Auto) 1-5 /lpf (0-5) 12/23/22 Unknown U Hyaline Cast (Auto) Cancelled 12/23/22 Unknown U Epithel Cells (Auto) 5-10 /lpf (0-5) H 12/23/22 Unknown U Epithel Cells (Auto) Cancelled 12/23/22 Unknown Urine Bacteria (Auto) Cancelled 12/23/22 Unknown Urine Bacteria (Auto) Negative (Negative) 12/23/22 Unknown Ur Renal Epithelial Cell Cancelled 12/23/22 Unknown Urine Crystals Cancelled 12/23/22 Unknown Calcium Oxalate Crystal Cancelled 12/23/22 Unknown Uric Acid Crystals Cancelled 12/23/22 Unknown Triple Phos Crystals Cancelled 12/23/22 Unknown Other Crystals Cancelled 12/23/22 Unknown Amorphous Sediment Cancelled 12/23/22 Unknown Granular Casts Cancelled 12/23/22 Unknown Waxy Casts Cancelled 12/23/22 Unknown RBC Casts Cancelled 12/23/22 Unknown WBC Casts Cancelled 12/23/22 Unknown Other Casts Cancelled 12/23/22 Unknown Urine Mucus Cancelled 12/23/22 Unknown Urine Other Cancelled 12/23/22 Unknown Urine Trichomonas Cancelled 12/23/22 Unknown Urine Yeast Cancelled 12/23/22 Unknown Urine Sperm Cancelled 12/23/22 Unknown Ur Oval Fat Bodies Cancelled 12/23/22 Unknown SARS-CoV-2 (PCR) NEGATIVE (Negative) 12/23/22 17:39 Influenza Type A (PCR) Negative (Neg) 12/23/22 17:39 Influenza Type B (PCR) Negative (Neg) 12/23/22 17:39 RSV (RT-PCR) Negative (Neg) 12/23/22 17:39 SARS-CoV-2, RNA, NAAT NEGATIVE (NEGATIVE) 12/23/22 16:24 Impressions Chest X-Ray 12/26/22 09:27 XR chest 2V PA/lateral CLINICAL HISTORY: chf, pleural effusions TECHNIQUE: 2 views of the chest were obtained. Comparison: Comparison is made to chest radiograph 12/23/2022 FINDINGS: No lines and tubes are seen. Cardiomegaly is noted. The aortic arch is calcified. Redemonstration of left ventricular calcifications. Multifocal airspace opacities are seen. Moderate left and small right pleural effusions again seen. IMPRESSION: 1. Multifocal airspace opacities are slightly increased from prior exam which may represent worsening pulmonary edema and/or multifocal pneumonia. 2. Moderate left and small right pleural effusions. ACT 112: Negative or not required by law. Electronically signed by: Gideon Lee M.D. 12/26/2022 12:19 PM Pending Results Patient Have Any Pending Studies at Discharge: No Discharge Instructions Given to Patient (Per Discharging Provider) PLEASE REFER TO YOUR NEW MEDICATION LIST AND FOLLOW INSTRUCTIONS CAREFULLY. YOUR NEW MEDICATIONS INCLUDE: METOPROLOL SUCCINATE DIGOXIN - for atrial fibrillation ELIQUIS - blood thinner for stroke prevention - proceed to the ER immediately if you sustain any head injury LASIX LASIX 40MG IN AM LASIX 20MG AT PM ALDACTONE - diuretics PLEASE CALL YOUR PRIMARY CARE PHYSICIAN OR RETURN TO THE ER IF WITH WORSENING OF SYMPTOMS, INCLUDING shortness of breath, chest pain, palpitations, dizziness, etc FOLLOW UP WITH PRIMARY CARE PHYSICIAN IN 1 WEEK. FOLLOW UP WITH THEORETICAL PHYSICIST IN 2 WEEKS. Total Time Total Time Spent Total Time Spent (In Minutes): >30 minutes
== END 2022-12-27 20:06 | disposition home or self-care (01) | DRG 308 ==
LOC: ED 16:06 → SUATTDRO 18:54 → 2S 18:54